=== PATIENT | female | born 1945 | race Caucasian/White ===

== ENCOUNTER 2018-03-07 18:20 | Emergency (ER) | payer MEDICARE, BC ==
[~2018-03-07] VITALS: Ht 162.6 cm; Wt 88.6 kg
[~2018-03-07 18:20] MED LIST: APRESOLINE 25MG25 MG PO; ASPIRIN 32325 MG/TA1 PO; ASPIRIN 32325 MG/TAB PO; ASPIRIN CHILDRE81 MG PO; ASPIRIN LOW DOS81 M1 PO; CITALOPRAM10 MG PO; CLONAZEPAM1 MG PO; CRESTOR5 MG PO; DOXAZOSIN4 MG PO; FUROSEMIDE20 MG PO; HCTZ 25MG TAB25 MG PO; HUMULIN N100 U/ML SQ; HUMULIN R 10100 U/ML SC; HUMULIN R100 U/ML SQ; INSHUMULINN SC; INSULIN R (N100 U/ML SC; KLONOPIN1 MG PO; KLOR-CON 1010 MEQ PO; LEVEMIR100 U/ML SC; LEVOTHYROXIN0.125 MG PO; LEVOXYL0.125 MG PO; LISINOPRIL/HCTZ1 TA1 PO; LOPRESSOR 225 MG/TAB PO; NOVOLIN 70/30 710 ML SC; NOVOLIN N100 U/ML SC; PLAVIX 75MG TAB75 MG PO; PLETAL 100MG T100 MG PO; PRINZIDE 12.5 M1 TAB PO; SALINE IH; SIMVASTATIN40 MG PO; SYNTHROID0.137 MG PO; ULTRAM 50MG TAB50 MG PO; VITAMIN D 50,1.25 MG PO; ZESTRIL 10MG10 MG PO
[2018-03-07 18:25] VITALS: TEMP 98.3
[2018-03-07] MEDS ORDERED: ASPIRIN 81M81 MG/TA2 PO (18:44)
[2018-03-07] MEDS ORDERED: REGLAN 10MG10 MG/TAB PO (19:01)
[2018-03-07] MEDS ORDERED: DITROPAN 5MG TAB5 MG PO (19:01)
[2018-03-07] MEDS ORDERED: COREG 3.123.125 MG/T PO (19:05)
[2018-03-07 19:50] VITALS: BP 146/67; PULSE 58
== END 2018-03-07 19:50 | disposition home or self-care (01) ==
LOC: COL.ER 18:20
DX: S82.831A Other fracture of upper and lower end of right fibula, initial encounter for closed fracture (principal); Z79.02 Long term (current) use of antithrombotics/antiplatelets; Z79.4 Long term (current) use of insulin; Z79.82 Long term (current) use of aspirin; W00.0XXA Fall on same level due to ice and snow, initial encounter; X50.0XXA Overexertion from strenuous movement or load, initial encounter

== ENCOUNTER 2019-03-16 15:04 | Inpatient (IN) | payer MEDICARE, BC ==
[~2019-03-16] VITALS: Ht 162.6 cm; Wt 96.8 kg
[~2019-03-16 15:04] MED LIST changes: +ASPIRIN 81M81 MG/TA2 PO; +CELEXA 20MG20 MG/TAB PO; +COREG 3.123.125 MG/T PO; +CRESTOR 10MG10 MG PO; -CRESTOR5 MG PO; +DITROPAN 5MG TAB5 MG PO; -HUMULIN R 10100 U/ML SC; -INSHUMULINN SC; +INSULIN N (N100 U/ML SQ; +INSULIN R (N100 U/ML SQ; +REGLAN 10MG10 MG/TAB PO; +SYNTHROID0.125 MG/T PO
[2019-03-16 16:52] LABS: BASO % 0.2 % (0.0-2.0); EOS # 0.1 (0.0-0.7); EOS % 0.7 % (0-4.0); GRAN % 72.6 % (42.2-75.2); LYMPH # 1.3 (1.2-3.4); LYMPH % 15.2 % (20.0-51.0); MEAN CELL VOLUME 89 fl (80.0-100.0); MEAN CORPUSCULAR HGB CONC 34 g/dl (33.0-37.0); MEAN PLATELET VOLUME 10.2 fl (7.4-10.4); MONO # 0.9 (0.1-0.6); MONO % 10.8 % (1.7-9.3); PLATELET COUNT 208 K/mm3 (130-400); RED BLOOD COUNT 2.93 M/mm3 (4.10-5.30); REDCELL DISTRIBUTION WIDTH-CV 12.5 % (11.5-14.5)
[2019-03-16 16:53] LABS: HEMOGLOBIN 8.9 g/dl (12.5-16.0); MEAN CORPUSCULAR HEMOGLOBIN 30 pg (27.0-31.0)
[2019-03-16 17:19] LABS: COLLECTION METHOD IN
[2019-03-16 17:30] LABS: ALBUMIN 3.4 gm/dL (3.5-5.0); BILIRUBIN,TOTAL 0.5 mg/dL (0.0-1.0); C-REACTIVE PROTEIN 1.7 mg/dL (0.0-0.9); CALCIUM 7.9 mg/dL (8.4-10.2); CREATININE, serum 6.71 (0.52-1.25); MAGNESIUM 2.3 mg/dL (1.6-2.3); POTASSIUM 3.4 mmol/L (3.4-5.0); TOTAL PROTEIN 6.9 gm/dL (6.4-8.2)
[2019-03-16 17:31] LABS: PHOSPHOROUS 11.8 mg/dL (2.5-4.5)
[2019-03-16 17:37] LABS: AMORPHOUS CRYSTAL Present /uL; PH 5 (5-8); SQUAMOUS EPITHELIAL None Seen /hpf; URINE APPEARANCE Turbid; URINE BACTERIA Moderate /hpf; URINE BILIRUBIN Negative (NEGATIVE); URINE BLOOD 1+ (NEGATIVE); URINE COLOR Yellow; URINE GLUCOSE Negative (NEGATIVE); URINE KETONE Negative (NEGATIVE); URINE LEUKOCYTE ESTERASE 3+ (NEGATIVE); URINE NITRATE Negative (NEGATIVE); URINE PROTEIN(semi-quant) Negative (NEGATIVE); URINE UROBILINOGEN Negative (NEGATIVE)
[2019-03-16 19:32] LABS: INR 1.1 (0.8-3.0); PROTHROMBIN TIME 12.3 SECONDS (9.7-12.8)
--- NOTE | 2019-03-16 19:52 | NUR ---
Received report from DENIA Hernandez.
--- NOTE | 2019-03-16 20:13 | NUR ---
Patient arrives to ICU room 6 via ED stretcher. Patient is transferred to ICU bed via sliding board. Patient reports 10/10 pain in her bottom from pressure sores; her pain baseline is reported as a 10. Initial BP 145/131, other vitals within normal limits. Stage II ulcer noted on patient's coccyx, approximately 4 cm in length and 0.5 cm in width. Patient also has scattered small pustules primarily on abdomen and back that are red and intact. Abdominal folds are red and excoriated. Patient has 1+ edema in bilateral lower extremities; 2+ edema in feet. Scattered bruising throughout bilateral upper extremities noted. Bonita notified of patient's arrival. Will continue to monitor.
[2019-03-16 20:15] LABS: CREATININE, serum 6.28 (0.52-1.25); FRACTIONAL EXCRETION OF NA+ 5.4 %
[2019-03-16 20:37] VITALS: BP 145/131; PULSE 69; TEMP 97.7
--- NOTE | 2019-03-16 20:50 | NUR ---
Notified Bonita of patient's responses to suicide screen. Received orders to initiate suicide risk protocol.
[2019-03-16] MEDS ORDERED: INSULIN N (N100 U/ML SQ (21:59)
[2019-03-16 22:00] VITALS: BP 104/58; PULSE 63
[2019-03-16] MEDS ORDERED: PRINIVIL10 MG PO (22:12)
[2019-03-16] MEDS ORDERED: NITROSTAT0.4 MG/TAB SL (22:14)
[2019-03-16 23:40] LABS: ACETAMINOPHEN < 10 ug/mL (10-30); ALCOHOL(ethanol),MEDICAL < 10 mg/dL
[2019-03-17] VITALS (79 sets, daily range): BP systolic 96–132; BP diastolic 43–78; PULSE 50–85; TEMP 97.4–98.2; O2SAT 55–100
[2019-03-17 00:07] LABS: TSH w REFLEX 0.023 uIU/mL (0.465-4.680)
[2019-03-17 00:34] LABS: TRICYCLIC ANTIDEPRESS URINE NEGATIVE
--- NOTE | 2019-03-17 02:12 | NUR ---
Notified Bonita of patient's fluctuating BPs with MAPs < 65. Received orders to bolus 1L NS now. Will continue to monitor.
[2019-03-17 05:16] LABS: BASO % 0.3 % (0.0-2.0); EOS # 0.1 (0.0-0.7); EOS % 1.5 % (0-4.0); GRAN # 4.7 (1.4-6.5); GRAN % 62.2 % (42.2-75.2); LYMPH # 1.9 (1.2-3.4); LYMPH % 25.1 % (20.0-51.0); MEAN CELL VOLUME 90 fl (80.0-100.0); MEAN CORPUSCULAR HGB CONC 34 g/dl (33.0-37.0); MEAN PLATELET VOLUME 10.1 fl (7.4-10.4); MONO # 0.8 (0.1-0.6); MONO % 10.5 % (1.7-9.3); PLATELET COUNT 183 K/mm3 (130-400); RED BLOOD COUNT 2.82 M/mm3 (4.10-5.30); REDCELL DISTRIBUTION WIDTH-CV 12.8 % (11.5-14.5)
[2019-03-17 05:18] LABS: HEMATOCRIT 25.3 % (37.0-47.0); HEMOGLOBIN 8.7 g/dl (12.5-16.0); MEAN CORPUSCULAR HEMOGLOBIN 31 pg (27.0-31.0)
[2019-03-17 05:23] LABS: ALANINE AMINOTRANSFERASE 29 U/L (9-52); ALKALINE PHOSPHATASE 93 U/L (50-136); ANION GAP 13 mmol/L (7-16); AST,SGOT 34 U/L (15-37); BILIRUBIN,TOTAL 0.5 mg/dL (0.0-1.0); CALCIUM 7.4 mg/dL (8.4-10.2); CARBON DIOXIDE 20 mmol/L (22-30); CHLORIDE 107 mmol/L (98-107); CREATININE, serum 5.33 (0.52-1.25); GLUCOSE 176 mg/dL (74-106); SODIUM 140 mmol/L (137-145); TOTAL PROTEIN 6.2 gm/dL (6.4-8.2)
[2019-03-17 05:30] LABS: BLOOD UREA NITROGEN 168 mg/dL (7-17)
--- NOTE | 2019-03-17 07:15 | NUR ---
Dining services informed of precautions required for food tray
--- NOTE | 2019-03-17 07:38 | NUR ---
Report given to DENIA Hernandez.
--- NOTE | 2019-03-17 08:04 | NUR ---
MD Evaristo called to provide update and to inform [facility] will be closing early today if wanted to schedule pt to TDC insertion by IR. MD Evaristo replied: I cannot make that decision right now. So no. [facility] team notified that MD Evaristo not wanting a TDC insertion for pt today.
--- NOTE | 2019-03-17 08:09 | NUR ---
MD Judie Psych consult called - staff at her office states she is not taking consultations this week.
--- NOTE | 2019-03-17 10:17 | NUR ---
SIDNEY frazier met with the patient and the patient's , Efra to complete initial assessment. The [place]between [place] and [place]. The patient has a bedside commode, walker, cane, and shower chair. The patient receives assistance with ADLs from Efra. The patient was interested in home health services. SIDNEY frazier provided [employer]'s list of agencies in the geographical location of the patient's address. The patient's PCP is Dr. Watson and patient receives medication from [facility] with no difficulties. The patient's picks up medications for the patient. The patient does not have advanced directives in the EMR and was not interested in DPOA-HC form. loan services professional will continue to follow to ensure a safe discharge.
--- NOTE | 2019-03-17 10:44 | NUR ---
Pt experiencing "regular old back pain rated at a 10/10". Pt also experiencing 10/10 "white hot pain going from my knee down to my feet on left side". MD Joellen and rounding team present.
--- NOTE | 2019-03-17 10:49 | NUR ---
WEIGHT CHECKER student attended clinical rounds with the team. PT/OT ordered and Nephrology consulted.
--- NOTE | 2019-03-17 11:11 | NUR ---
MD Evaristo notified of MD Joellen PICC order. Pt is right handed. MD Evaristo stated to insert PICC in pt's dominant arm. Repeated back to MD Evaristo that PICC will be in right arm DENIA Schaefer notified
--- NOTE | 2019-03-17 12:13 | NUR ---
DENIA Schaefer placing PICC at this time
--- NOTE | 2019-03-17 17:41 | NUR ---
1741 Pt drowsy after recieving IV Phenergan experiencing apnea while sleeping. SpO2 40% during this apnea, hypoxic event lasted <30seconds before waking pt (firm stimulation required to wake pt) - SpO2 elevated to 96% within seconds of waking. MD Joellen called - BiPap orders recieved - RT Melina called 175 Pt placed on BiPap - tolerating BiPap without difficulty. 1800 whos been at bedside most of the day has left for the evening.
[2019-03-18] VITALS (651 sets, daily range): BP systolic 92–125; BP diastolic 40–85; PULSE 54–62; TEMP 98–98.4; O2SAT 62–100
[2019-03-18 04:58] LABS: BASO % 0.5 % (0.0-2.0); EOS # 0.1 (0.0-0.7); EOS % 1.4 % (0-4.0); GRAN # 3.5 (1.4-6.5); GRAN % 59.2 % (42.2-75.2); LYMPH # 1.7 (1.2-3.4); LYMPH % 28.9 % (20.0-51.0); MEAN CELL VOLUME 93 fl (80.0-100.0); MEAN CORPUSCULAR HGB CONC 33 g/dl (33.0-37.0); MEAN PLATELET VOLUME 9.8 fl (7.4-10.4); MONO # 0.6 (0.1-0.6); MONO % 9.5 % (1.7-9.3); PLATELET COUNT 170 K/mm3 (130-400); RED BLOOD COUNT 2.66 M/mm3 (4.10-5.30); REDCELL DISTRIBUTION WIDTH-CV 12.6 % (11.5-14.5)
[2019-03-18 05:03] LABS: HEMATOCRIT 24.8 % (37.0-47.0); HEMOGLOBIN 8.2 g/dl (12.5-16.0); MEAN CORPUSCULAR HEMOGLOBIN 31 pg (27.0-31.0)
[2019-03-18 05:10] LABS: CALCIUM 7.9 mg/dL (8.4-10.2); CREATININE, serum 3.95 (0.52-1.25); MAGNESIUM 1.8 mg/dL (1.6-2.3); PHOSPHOROUS 7.5 mg/dL (2.5-4.5); POTASSIUM 4.2 mmol/L (3.4-5.0)
--- NOTE | 2019-03-18 09:12 | NUR ---
Physical therapy is recommending post acute rehab. VICE PRESIDENT OF DEVELOPMENT student provided Medicare.gov's list of SNF facilities in the patient's geographical location. The patient would like to discuss the options with her . inpatient services director will continue to follow.
--- NOTE | 2019-03-18 13:49 | NUR ---
VIDEOGAME DESIGNER student met with the patient and her , Efra to discuss SNF choices. The patient reports they talked it over and the first choice is [facility] and second choice is [facility]. Referrals faxed. Awaiting responses.
--- NOTE | 2019-03-18 15:11 | NUR ---
Report received from Ivy LOZA and care resumed.
--- NOTE | 2019-03-18 16:19 | NUR ---
Report given to Puja LOZA. Pt to transfer to room 318.
--- NOTE | 2019-03-18 17:00 | NUR ---
Patient to room 318 by bed from ICU. Patient A&Ox3, reporting pain in buttucks from stage 2 pressure ulcer. [place] dressing applied. Oriented patient to room, call light and bed. Assessment complete. PICC APOLONIA CDI, fluids infusing. Patient reporting nausea, basin at the bedside. Pastor dependent drainage, clear yellow. No further needs expressed from patient. Call light within reach.
--- NOTE | 2019-03-18 17:30 | NUR ---
Called to room from daughter and asking for an straightening machine feeder. Counter Former line called. Daughter explaining through licensed real estate broker that patient wants to be discharged and leave the hospital. Explained through licensed real estate broker that the patient was requiring to much medical support and oxygen to be cleared for discharge. Pt and daughter explained to licensed real estate broker that they didnt care and still wanted to leave. They stated they have a flight back to [place] and that patient just wants to go home. They also stated they could not afford the hospital bill. Explained through straightening machine feeder that according to the medical team of doctors seeing her, it was very likely that she would deteriorate very quickly once the oxygen was removed. Pt states she understands but does not need the oxygen. Explained through licensed real estate broker that doctors were not even sure that she would live long enough to make it on a plane. Daughters and patient state understanding and still requesting to leave. ROSALBA Hernandez and Dr Cuenca called to room who also were updated that pt was wanting to leave the hospital. Explained that if patient left it would be against medical advise and that she would more then likely pass before even being able to get on a plane. Family and patient again stating that they want patient to leave the hospital. stating that patient may not even be able to make it out of the hospital before going into cardiac arrest or she may stop breathing. Doctor had licensed real estate broker explain this to family. They again state thats ok. A DNR was then explained to tranlator and this was relayed to family that if patient were to stop breathing would they like us to code or resuscitate the patient. The daughters stated no, she would be a DNR. AMA paperwork was then filled out by ROSALBA Hernandez and read and translated to the family who again agreed with leaving. AMA paperwork was signed by patient and as well as the daugher then witnessed by nurse and PLUMBER ASSISTANT. Pt 02 was removed per request. Within 1 minute O2 sats mid 80's and pt having increased work of breathing. Family still wanting to proceed. INT to left forearm was dc'd and pt taken off tele and IV amiodarone. PICC line to right upper arm removed and pressure applied until hemostasis. Pt's O2 sats upper 70's at this time. Doctor and PLUMBER ASSISTANT still present. At this time pt's sister and brother in law present and explained what was happening. Sister and brother in law tried again to talk with patient and pt's daughters and get them to stay in hospital. Brother in law was stating, "she will and I won't feel good about her dying in my home." Daughters and patient still persistent on leaving. At this time 02 sat was removed, currently showing 74%. Pt was dressed and helped to wheelchair. Pt taken out to private care with daughters, sister, and brother in law present to take her home at 1715.
--- NOTE | 2019-03-18 17:47 | NUR ---
Patient resting in bed, at the bedside. Denies pain and discomfort when not moving. Warm blanket provided. Charlotte at the bedside, patient concerned with vomitting from being nauseous. PICC APOLONIA CDI, fluids infusing. No further needs expressed from patient. Call light within reach
--- NOTE | 2019-03-18 20:00 | NUR ---
Recieved report from DENIA Durant. Assessment complete. Alert and oriented. Denies any pain at this time, c/o feeling nausea, no vomiting. meds administered. Tele monitor in place, leads checked. Pastor cath in place, secured to LL, draining clear yellow urine. PICC to APOLONIA intact with fluids infusing. Needs attended too. Call light within reach.
[2019-03-19] VITALS: BP 126/46; PULSE 60; TEMP 97.9
[2019-03-19 02:54] VITALS: BP 113/39; PULSE 115; TEMP 98.5
[2019-03-19 03:52] LABS: BASO % 0.5 % (0.0-2.0); EOS # 0.1 (0.0-0.7); EOS % 1.3 % (0-4.0); GRAN # 3.4 (1.4-6.5); GRAN % 62.4 % (42.2-75.2); LYMPH # 1.4 (1.2-3.4); LYMPH % 25.8 % (20.0-51.0); MEAN CELL VOLUME 90 fl (80.0-100.0); MEAN CORPUSCULAR HGB CONC 34 g/dl (33.0-37.0); MEAN PLATELET VOLUME 9.3 fl (7.4-10.4); MONO # 0.5 (0.1-0.6); MONO % 9.5 % (1.7-9.3); PLATELET COUNT 161 K/mm3 (130-400); RED BLOOD COUNT 2.71 M/mm3 (4.10-5.30); REDCELL DISTRIBUTION WIDTH-CV 12.4 % (11.5-14.5)
--- NOTE | 2019-03-19 03:52 | NUR ---
At 0330, ProjectSpeaker notified this RN pt had run of SVT, back to 60's. Pt sleeping at this time, asymptomatic. ROSALBA Mes[place] notified. Per Bonita to have labs drawn. Lab notified.
[2019-03-19 03:53] LABS: HEMATOCRIT 24.5 % (37.0-47.0); HEMOGLOBIN 8.3 g/dl (12.5-16.0); MEAN CORPUSCULAR HEMOGLOBIN 31 pg (27.0-31.0)
[2019-03-19 04:02] LABS: CALCIUM 7.6 mg/dL (8.4-10.2); CREATININE, serum 2.89 (0.52-1.25); MAGNESIUM 1.5 mg/dL (1.6-2.3); POTASSIUM 4.1 mmol/L (3.4-5.0)
--- NOTE | 2019-03-19 06:20 | NUR ---
At 0615, OrderUp notified this RN of 18sec run of AFIB w/RVR, pt asymptomatic, VS WNL. Notified Dr Cisse, per to monitor pt.
--- NOTE | 2019-03-19 07:02 | NUR ---
Report given to DENIA Miguel.
[2019-03-19 08:49] VITALS: BP 121/42; PULSE 62; TEMP 99
--- NOTE | 2019-03-19 11:36 | NUR ---
First visit from the contact center specialist. No needs right now.
[2019-03-19 12:16] VITALS: BP 118/38; PULSE 60; TEMP 98.8
--- NOTE | 2019-03-19 13:58 | NUR ---
Erendira, at [facility], reports that they would like to see the patient's psych consult. A psych consult has been ordered. Manas, at [facility], reports that they are still reviewing the referral. She states that they would like to see updated notes on the patient since her transfer from ICU. KELECHI faxed updates to [facility] and [facility]. SW to continue to follow.
--- NOTE | 2019-03-19 17:12 | NUR ---
Erendira, at [facility], reports that they are good to follow the patient; but would like to see the psych consult once done. SW to continue to follow.
[2019-03-19 17:17] VITALS: BP 116/45; PULSE 56; TEMP 98.5
--- NOTE | 2019-03-19 19:55 | NUR ---
Patient assessment completed and charted at this time, please see documentation for details. Patient resting in bed, call light within reach, no issues to report at this time.
[2019-03-19 21:24] VITALS: BP 112/45; PULSE 58; TEMP 99.6
[2019-03-20] VITALS (7 sets, daily range): BP systolic 104–152; BP diastolic 32–58; PULSE 52–105; TEMP 98.1–98.8
[2019-03-20 09:30] LABS: BASO % 0.1 % (0.0-2.0); EOS % 0.1 % (0-4.0); GRAN # 6.1 (1.4-6.5); GRAN % 78.9 % (42.2-75.2); LYMPH # 1.1 (1.2-3.4); LYMPH % 14.8 % (20.0-51.0); MEAN CELL VOLUME 92 fl (80.0-100.0); MEAN CORPUSCULAR HGB CONC 34 g/dl (33.0-37.0); MEAN PLATELET VOLUME 9.7 fl (7.4-10.4); MONO # 0.4 (0.1-0.6); MONO % 5.7 % (1.7-9.3); PLATELET COUNT 173 K/mm3 (130-400); RED BLOOD COUNT 2.68 M/mm3 (4.10-5.30); REDCELL DISTRIBUTION WIDTH-CV 12.4 % (11.5-14.5)
[2019-03-20 09:34] LABS: HEMATOCRIT 24.6 % (37.0-47.0); HEMOGLOBIN 8.3 g/dl (12.5-16.0); MEAN CORPUSCULAR HEMOGLOBIN 31 pg (27.0-31.0)
--- NOTE | 2019-03-20 09:34 | NUR ---
When I arrived pt seemed upset. She said she still felt nauseaus but was not in any pain. She was bent over a bucket thinking she would vomit but she never did. I gave her some zofran and she said she is still feeling nauseaus. Her pressure ulcer is consistent with a stage II ulcer. PT got the pt up and she did not tolerate standing or the transfer to the chair well. Her feet were also edemetous but warm. She refused breakfast this morning and refused crackers when I offered her some with her sprite. She also mentioned that she didn't want to take all of her medications at once because she could only take one at a time and "taking a drink in between each one makes me nauseaus." I offered to split them up and take 1 every 15 minutes and she said she didn't want to do that. Waiting on hepxa to come back to adjust heparin drip.
[2019-03-20 09:42] LABS: CALCIUM 8.1 mg/dL (8.4-10.2); CREATININE, serum 2.18 (0.52-1.25); POTASSIUM 3.8 mmol/L (3.4-5.0)
[2019-03-20 14:57] LABS: PARTIAL THROMBOPLASTIN TIME 114.8 SECONDS (26.0-37.0)
--- NOTE | 2019-03-20 15:23 | NUR ---
Erendira from [facility] reports they can accept the patient for a long term stay. KELECHI contacted Manas and thanked her for looking at the referral. SW informed the team and the patient. environmental services floor tech will continue to follow.
--- NOTE | 2019-03-20 18:28 | NUR ---
Pt seems unhappy. Still states being nauseaus and zofran is inneffective. Pastor has been pulled and pt has been educated on bladder spasms and the amount of time it will take for her bladder to feel normal again. Pt also refuses to eat lunch and breakfast. heparin is running at 13.7 and NS running at 50ml/hr. Pt has no other requests at this time.
--- NOTE | 2019-03-20 18:30 | NUR ---
PT report received at bedside from Carla LOZA. PT denies pain, wants, needs at this time. Call light within reach. Will continue to monitor.
--- NOTE | 2019-03-20 23:03 | NUR ---
Heparin drip stopped per policy d/t elevated Hep-Xa lab. Order placed with lab for Hep-xa and PTT at 03/21/2019 at 0100 per policy prior to restarting heparin drip.
[2019-03-21] VITALS (15 sets, daily range): BP systolic 112–133; BP diastolic 31–46; PULSE 44–99; TEMP 98.1–98.8
--- NOTE | 2019-03-21 00:31 | NUR ---
PT resting in bed waiting for lab to come draw her next PTT and Hep-Xa at 0100. PT states that she wants labs drawn via PICC d/t previous labs being difficult to draw from her arm. PT denies wants/needs at this time. Call light within reach. Will continue to monitor.
[2019-03-21 01:44] LABS: PARTIAL THROMBOPLASTIN TIME 82.3 SECONDS (26.0-37.0)
--- NOTE | 2019-03-21 03:56 | NUR ---
Up to C commode- voided 50cc, had large soft brown stool. States she feels like she needs to urinate more but cannot-- bladder scan done- 430cc in the bladder. [facility] called and order to straight x1
--- NOTE | 2019-03-21 04:41 | NUR ---
Straight cathed for 450cc urine
--- NOTE | 2019-03-21 08:02 | NUR ---
IN TO ASSESS PATIENT AND GET VITALS AT 0728. PATIENT WAS SITTING IN BED WITH NO DISTRESS. ALERT AND ORIENTATED X4, DENIES ANY SHORTNESS OF BREATH, NAUESEA, VOMITING, OR DIZZINESS. HEPARIN PAUSED MOMENTARILLY FOR LAB DRAW PURPOSES, WILL BE HOOKED BACK UP ONCE LAB WORK IS DRAWN.
[2019-03-21 08:23] LABS: BASO % 0.2 % (0.0-2.0); EOS # 0.1 (0.0-0.7); EOS % 0.8 % (0-4.0); GRAN % 75.1 % (42.2-75.2); LYMPH # 1.5 (1.2-3.4); LYMPH % 16.6 % (20.0-51.0); MEAN CELL VOLUME 92 fl (80.0-100.0); MEAN CORPUSCULAR HGB CONC 33 g/dl (33.0-37.0); MEAN PLATELET VOLUME 9.6 fl (7.4-10.4); MONO # 0.6 (0.1-0.6); MONO % 6.4 % (1.7-9.3); PLATELET COUNT 166 K/mm3 (130-400); RED BLOOD COUNT 2.32 M/mm3 (4.10-5.30); REDCELL DISTRIBUTION WIDTH-CV 12.5 % (11.5-14.5)
[2019-03-21 08:24] LABS: HEMATOCRIT 21.3 % (37.0-47.0); HEMOGLOBIN 7.1 g/dl (12.5-16.0); MEAN CORPUSCULAR HEMOGLOBIN 31 pg (27.0-31.0)
[2019-03-21 08:33] LABS: CALCIUM 7.7 mg/dL (8.4-10.2); CREATININE, serum 1.96 (0.52-1.25); POTASSIUM 3.6 mmol/L (3.4-5.0)
--- NOTE | 2019-03-21 09:41 | NUR ---
PATIENT IS OFF HER HEPARIN GTT AT THIS TIME DUE TO DOCTORS ORDERS AND STARTING ELIQUIS. NO OTHER ISSUES NOTED AT THIS TIME. AT BEDSIDE
--- NOTE | 2019-03-21 10:20 | NUR ---
BLADDER SCANNED THE PATIENT. 258 ML IN BLADDER AT THIS TIME. PATIENT DENIES THE NEED TO GO TO THE BATHROOM AT THIS TIME.
--- NOTE | 2019-03-21 11:35 | NUR ---
GOT PATIENT UP TO THE BEDSIDE COMMONDE WITH NO RESULTS. PATIENT DECLINED ME CLEANING HER UP WITH WASHCLOTHES THAT I BROUGHT IN, STATING THAT SHE DID IT YESTERDAY. A NEW FITTED SHEET WAS APPLIED TO THE BED AT THIS TIME. PATIENT IS SITTING UP IN THE CHAIR AND SAID THAT SHE COULD ONLY FOR A COUPLE MINUTES. DECLINED USING THE SHOWER CAP OR USING A WASHCLOTH TO GET HER HAIR WET AND CLEANED UP.
--- NOTE | 2019-03-21 14:01 | NUR ---
DR. ELLISON NOTIFIED OF THE TROPONIN VALUE THAT RESULTED ON THE PATIENT. NO ACTION AT THIS TIME REQUIRED.
[2019-03-21 14:19] LABS: PARTIAL THROMBOPLASTIN TIME 42.6 SECONDS (26.0-37.0)
--- NOTE | 2019-03-21 17:48 | NUR ---
PATIENT LAYING IN BED AT THIS TIME WATCHING TV WITH HER AND WAITING ON DINNER TO ARRIVE. PATIENT IS RECEIVING A UNIT OF BLOOD AT THIS TIME. NO S/S OR COMPLAINTS OF A REACTION ARE NOTED. PATIENT WAS ABLE TO VOID ABOUT AN HOUR AGO AFTER NOT BEING ABLE TO GO ALL DAY. PATIENT DID SIT UP IN THE CHAIR FOR A GOOD 2 HOURS DURING THE DAY. NO COMPLAINTS AT THIS TIME. CALL LIGHT WITHIN REACH.
--- NOTE | 2019-03-21 18:38 | NUR ---
PATIENT WANTED TO REFUSE DINNER AND THIS NURSE TOLD THE PATIENT THAT SHE NEEDED TO EAT SOMETHING. SHE IS EATING PINNAPLE AND DRINKING CHICKEN BROTH
--- NOTE | 2019-03-21 20:00 | NUR ---
Initial shift assessment done- pt denies being in pain- does not want pain meds at this time- repositioned off bottom, has open area to coccyx-mepilex on. Blood completed-- according to order in computer - next recheck of hgb not for 6 hrs- order to start heparin drip at this time at 10cc/hr, no orders for blood draw before starting so did call [facility] for some clarification- orders now to have Blood drawn at 2100 tonight- will get CBC to see if needs another unit of blood and coagulation studies before starting heparin drip-
[2019-03-21 21:34] LABS: BASO % 0.4 % (0.0-2.0); EOS # 0.1 (0.0-0.7); EOS % 0.8 % (0-4.0); GRAN # 7.6 (1.4-6.5); GRAN % 71.9 % (42.2-75.2); LYMPH # 1.8 (1.2-3.4); LYMPH % 17.1 % (20.0-51.0); MEAN CELL VOLUME 89 fl (80.0-100.0); MEAN CORPUSCULAR HGB CONC 34 g/dl (33.0-37.0); MEAN PLATELET VOLUME 9.7 fl (7.4-10.4); MONO # 0.9 (0.1-0.6); MONO % 8.6 % (1.7-9.3); PLATELET COUNT 186 K/mm3 (130-400); RED BLOOD COUNT 2.72 M/mm3 (4.10-5.30)
[2019-03-21 21:37] LABS: HEMATOCRIT 24.2 % (37.0-47.0); HEMOGLOBIN 8.1 g/dl (12.5-16.0); MEAN CORPUSCULAR HEMOGLOBIN 30 pg (27.0-31.0)
[2019-03-21 21:39] LABS: INR 1.3 (0.8-3.0); PROTHROMBIN TIME 15.3 SECONDS (9.7-12.8)
[2019-03-21 21:41] LABS: CALCIUM 8.1 mg/dL (8.4-10.2); CREATININE, serum 2.09 (0.52-1.25)
[2019-03-21 21:42] LABS: PARTIAL THROMBOPLASTIN TIME 29.2 SECONDS (26.0-37.0)
--- NOTE | 2019-03-21 22:00 | NUR ---
[facility]ita [facility] called with results of lab work- hgb 8.1-- order to give another unit of blood tonight,,coagulation studies back-- orders to follow low dose protocol according to hepxa 0.79,will wait one hour and then start heparin at 8cc/hr {800 unit/hr}
--- NOTE | 2019-03-21 23:00 | NUR ---
Heparin drip started at 8cc/hr per low dose heparin protocol- repeat hepxa at 0500
[2019-03-22] VITALS (9 sets, daily range): BP systolic 120–148; BP diastolic 38–52; PULSE 52–110; TEMP 98.4–99.1
--- NOTE | 2019-03-22 01:46 | NUR ---
Unit of blood started- infusing via PICC line- nurse in room for first 15 minutes- protocol followed
--- NOTE | 2019-03-22 01:59 | NUR ---
NO S/S of adverse reactions to blood- infusing now at 125cc/hr- VSS
--- NOTE | 2019-03-22 04:15 | NUR ---
Blood completed- no adverse reactions,, denies pain, Up to BSC, voided 400cc osbaldo urine, back to bed. Has been resting fairly well tonight-- did get Zofran x1 for some nausea earlier in shift- denies nausea at this time. heparin drip remains at 8cc/hr- will get HEpxa with 0500 labs
[2019-03-22 06:45] LABS: HEMATOCRIT 27.6 % (37.0-47.0); HEMOGLOBIN 9.4 g/dl (12.5-16.0)
[2019-03-22 06:57] LABS: CALCIUM 8.2 mg/dL (8.4-10.2); CREATININE, serum 2.12 (0.52-1.25)
[2019-03-22 07:00] LABS: TROPONIN-I 0.261 ng/mL (0.000-0.035)
[2019-03-22 09:56] LABS: PARTIAL THROMBOPLASTIN TIME 41.1 SECONDS (26.0-37.0)
--- NOTE | 2019-03-22 10:50 | NUR ---
Erendira from [facility] contacted SW to inquire about this patients possible discharge today. SW faxed over current nursing notes, and will follow up as needed.
--- NOTE | 2019-03-22 14:18 | NUR ---
Warfarin Initial Dosing Pharmacy Note Ordering Provider: Lesley Knight W., MD Indication: Atrial fibrillation LABS: INR 1.3 (02/19/19) Recommendation: Will start Warfarin 5 mg po qHS. Bridging with heparin drip for new onset atrial fibrillation. Pharmacy will continue to monitor daily INR levels. Home Regimen: new Warfarin start
[2019-03-23 01:34] VITALS: BP 137/47; PULSE 56; TEMP 98.6
--- NOTE | 2019-03-23 02:11 | NUR ---
Patient has rested well so far this shift. States she did not eat dinner and refuses a snack. Novolog held d/t this. Blood glucose: 182. Ulcer present to coccyx. Dressing intact. Patient continues on Heparin drip. Protocol followed. Coumadin started at HS. Patient c/o pain to left hip and states she wants an xray. When asked if she fell or injured her hip she states, "well, no, but they left me in the chair for an hour and a half yesterday and it has hurt since then." Patient educated that muscles become sore/painful when they aren't used. PRN Tylenol administered. Patient states this was effective. Will continue to monitor.
[2019-03-23 04:29] VITALS: BP 135/40; PULSE 50; TEMP 98.5
[2019-03-23 06:46] LABS: MEAN CELL VOLUME 91 fl (80.0-100.0); MEAN CORPUSCULAR HGB CONC 33 g/dl (33.0-37.0); MEAN PLATELET VOLUME 9.7 fl (7.4-10.4); PLATELET COUNT 185 K/mm3 (130-400); RED BLOOD COUNT 2.98 M/mm3 (4.10-5.30); REDCELL DISTRIBUTION WIDTH-CV 14.6 % (11.5-14.5)
[2019-03-23 06:53] LABS: HEMATOCRIT 27.1 % (37.0-47.0); HEMOGLOBIN 8.9 g/dl (12.5-16.0); MEAN CORPUSCULAR HEMOGLOBIN 30 pg (27.0-31.0)
[2019-03-23 07:02] LABS: INR 1.2 (0.8-3.0); PROTHROMBIN TIME 13.8 SECONDS (9.7-12.8)
[2019-03-23 07:21] LABS: CALCIUM 8.5 mg/dL (8.4-10.2); CREATININE, serum 2.01 (0.52-1.25); MAGNESIUM 1.8 mg/dL (1.6-2.3); POTASSIUM 3.9 mmol/L (3.4-5.0)
[2019-03-23 07:26] LABS: BAND 4 % (0-10); LYMPHOCYTE 5 % (20.0-51.0); METAMYELOCYTE 2 % (0-0); MYELOCYTE 1 % (0-0); NEUTROPHILS 84 % (42.0-75.2); PLATELET ESTIMATE NORMAL (NORMAL)
[2019-03-23 07:34] VITALS: BP 108/78; PULSE 80; TEMP 98.3
[2019-03-23 11:30] VITALS: BP 157/56; PULSE 63; TEMP 98.5
--- NOTE | 2019-03-23 13:40 | NUR ---
Auto Parts Salesperson contacted Erendira at [facility] and faxed updates. SW to continue to follow.
--- NOTE | 2019-03-23 15:30 | NUR ---
THIS NURSE WENT IN THIS AFTERNOON TO DRAW LABS FROM PICC LINE FOR HEP XA LEVEL. IV WAS BEEPING THAT IV WAS "STOPPED" AND FLASHING. THIS NURSE INQUIRED ABOUT HOW LONG IT HAD BEEN NOT GOING. PT STATED THAT IT HAD BEEN BEEPING THE WHOLE HOUR HE HAD BEEN THERE, PT STATED THAT IT WAS EVEN BEFORE THAT. PT OR PT HADNT NOTIFED THIS NURSE OR STAFF ABOUT IV BEEPING, THIS NURSE CHECKED WITH NET FISHER TO SEE IF THERE WAS ANY CALLS FROM ROOM ABOUT IV BEEPING, NO CALLS WHERE MADE TO THE DESK. THIS NURSE BRIAN LABS FROM PICC LINE. REMINDED PT THAT WE DO LAB LEVELS TO CHECK RATE TO INFUSE THE HEPRAIN.
--- NOTE | 2019-03-23 17:00 | NUR ---
THIS NURSE WENT INTO ROOM WITH ANOTHER RN TO VARIFY CHANGE OF HEPARIN RATE AND GO ADMIN BOLUS DUE ACCOURDING TO HEP XA LEVEL AND THAT THE IV HAD BEEN OFF FOR MORE THEN AN HOUR. UPON ENTERING ROOM THIS NURSE SAW THAT PT IV PUMP WAS COMPLETLY SHUT OFF. THIS NURSE INQUIRED ABOUT WHY IV WAS OFF. PT HAD A VISITOR IN ROOM AND THE VISITOR REPORTED THAT THE HAD SHUT OFF THE IV DUE TO IT BEEPING AND IT NOT BEING TAKEN CARE OF. THIS NURSE EXPLAINED THE IMPORTANCE OF THE MEDICATION AND THAT WE ARE CARFULLY MONITORING LEVELS OF THE HEPARIN IN HER BLOOD AND THAT WE ARE TRYING TO GET HER STARTED ON THE COUMADIN AND ENSURING THAT LAB LEVELS ARE IN NORMAL RANGES TO WIND HER DOWN OFF THE HEPARIN AND THAT HER NOT GETTING THE HEPARIN CAN IN TURN POSSIBLY KEEP HER IN THE HOSPITAL LONGER TO GET THE LEVELS RIGHT IN HER BLOOD. AND THAT IF THE IV IS NOT INFUSING WE NEED TO BE NOTIFIED AND TO CALL US TO HER ROOM TO TAKE CARE OFIV SO SHE GETS HER MEDICATION. AND THAT SHE NEEDS TO KEEP CALLING US IF NO ONE COMES TO FIX IT UNTIL IT IS TAKEN CARE OF. THAT ITS VERY IMPORTANT THAT SHE GETS THE HEPARIN. PT AND VISITOR VARBALIZED UNDERSTANDING THE PTS VISITOR STATED THAT HE WAS GOING TO LET THE KNOW WHEN HE LEAVES THE FACITILY THAT HE WAS GOING TO GO TO OVER THE HUSBANDS HOUSE AND LET HIM KNOW ABOUT THIS SINCE SAID VISITOR LIVES NEXT DOOR.
--- NOTE | 2019-03-23 19:00 | NUR ---
PT HAD BEEN REFUSING TO EAT MEALS AND REFUSING ENSURE DRINKS FOR ABOUT 2 DAYS NOT. THIS NURES HAS BEEN ENCOURAGING INTAKE. PT HAD VISITOR IN ROOM AT TIME OF DISCUSSION. PT REFUSED FOOD AND DRINKS THAT WHERE OFFERED. THIS NURSE DID WENT OVER SNACK OPTIONS THAT WE HAD UP HERE TO ENCOURAGE INTAKE. PT VISITOR HELPED ENCOURAGE PT TO EAT SOMETHING WELL. PT HAD BEEN REPORTING NAUSEA AND THIS NURSE ADMINISTERED SOME ZOFRAN. PT WAS IN AGREEANCE TO TRY SOME HOT TEA, SOME STRAWBERRY ICE CREAM AND EDWIGE PUDDING. PT WAS ABLE TO EAT ALL THIS WITHOUT ISSUES. STATED IT TASTED "SO GOOD" PT VERABLIZED KNOWLEGED ABOUT DIET CONTROL AND NOT EATING THE ICE CREAM AND SWEET STUFF DUE THE THE DIABETES, THIS NURSE DISCUSSED THAT I WOULD RATHER HE EAT SOMETHING EVEN IF IT IS THE ICE CREAM AND PUDDING FOR SUPPER AND THAT WE CAN ALWAYS ADMINISTER SOME INSULIN ACCOURDING TO S/S FOR HER BLOOD SUGAR LEVELS. THIS NURSE DID GIVE HER THE SLIDING SCALE INSULIN AT SUPPER DUE TO EATING THE ICE CREAM AND PUDDING IN CASE HER BLOOD SUGARS SPIKED DUE TO THE SUGARS SHE ATE.
[2019-03-23 19:05] VITALS: BP 130/48; PULSE 71; TEMP 98.4
--- NOTE | 2019-03-23 19:13 | NUR ---
ASSSESSMENT COMPLETE. RESTING IN BED. DENIES PAIN/DISCOMFORT. DENIES NEEDS AT THIS TIME.
[2019-03-23 23:50] VITALS: BP 126/46; PULSE 55; TEMP 98.1
[2019-03-24 03:47] VITALS: BP 133/47; PULSE 56; TEMP 98.2
[2019-03-24 06:51] LABS: MEAN CELL VOLUME 92 fl (80.0-100.0); MEAN CORPUSCULAR HGB CONC 33 g/dl (33.0-37.0); MEAN PLATELET VOLUME 9.7 fl (7.4-10.4); PLATELET COUNT 198 K/mm3 (130-400); RED BLOOD COUNT 2.75 M/mm3 (4.10-5.30); REDCELL DISTRIBUTION WIDTH-CV 14.6 % (11.5-14.5)
[2019-03-24 06:56] LABS: HEMATOCRIT 25.2 % (37.0-47.0); HEMOGLOBIN 8.2 g/dl (12.5-16.0); MEAN CORPUSCULAR HEMOGLOBIN 30 pg (27.0-31.0)
[2019-03-24 07:12] LABS: CALCIUM 8.5 mg/dL (8.4-10.2); CREATININE, serum 1.85 (0.52-1.25); MAGNESIUM 1.7 mg/dL (1.6-2.3); POTASSIUM 3.7 mmol/L (3.4-5.0)
[2019-03-24 07:16] LABS: INR 1.1 (0.8-3.0); PROTHROMBIN TIME 13.3 SECONDS (9.7-12.8)
--- NOTE | 2019-03-24 07:23 | NUR ---
HepXa level 0.39, NO change per protocol, continue TRA 6.5 ml/hr, next Level check at 1300
[2019-03-24 07:38] VITALS: BP 141/55; PULSE 53; TEMP 99
[2019-03-24 07:55] LABS: BAND 1 % (0-10); EOSINOPHIL 1 % (0-4); LYMPHOCYTE 15 % (20.0-51.0); NEUTROPHILS 79 % (42.0-75.2); PLATELET ESTIMATE NORMAL (NORMAL)
--- NOTE | 2019-03-24 08:03 | NUR ---
Assessment completed, alert/oriented, vital signs stable, denies pain or discomfort, heart regular/ slightly bradycardic, distal pulses are palpable, lungs CTA/ no resp.difficulty noted, Hep.gtt @ 6.5/ hr and INR still subtherapuetic at 1.1, patient is voiding urine and creat is back to baseline, encouraging activity and positiong changes to offload pressure as she has stg.II pressure ulcer to her coccyx, incontinent cares provided and position changed at this time with the help of ASSET PROTECTION ASSISTANT, patient is refusing breakfast/ blood sugars in good control, denies other needs at this time
--- NOTE | 2019-03-24 09:00 | NUR ---
PICC intact right upper arm with sterile dressing change done with insertion site cleansed with chloraprep x 1, chlorhexidine impregnated disk applied, skin prep, stat lock, and tegaderm applied. no signs or symptoms of IV complications noted. no concerns voiced. re-wrapped with oneal to protect catheter.
[2019-03-24] MEDS ORDERED: COUMADIN 77.5 MG/TAB PO ×2 (10:17→10:34)
[2019-03-24] MEDS ORDERED: LIPITOR 80MG80 MG PO (10:35)
[2019-03-24] MEDS ORDERED: NORCO 325 MG-51 TAB PO (10:44)
[2019-03-24] MEDS ORDERED: LOVENOX 100100 MG/ML SQ (11:12)
[2019-03-24 11:46] VITALS: BP 155/51; PULSE 57; TEMP 97.9
[2019-03-24] MEDS ORDERED: ASPIRIN 81M81 MG/TA2 PO (11:50)
--- NOTE | 2019-03-24 11:58 | NUR ---
Stroke Belt Sander Operator attended clinical rounds with the team. Discharge plan was to go to [facility] but patient states not she does not want to go to a SNF. Patient also declines Home Health or Outpatient Therapy. Patient is firm that she is going home. Patient's , Efra expressed concerns about her going home but that patient is stubborn and that he cannot change her mind. Efra also expressed that if patient did agree to go to SNF she likely would not participate in therapy. Hospitalist inquired about patient mental health needs and patient states she doesn't need to talk to anyone. SW met with patient and Efra following rounds. SW presented and explained IM form. Patient verbalized understanding, provided signature, and was provided a copy. SW spoke with patient about thirty day window after hospitalization to explore SNF if unsucessful at home. SW also provided education on services through [facility] and their intake process. Patient verbalized understanding. SW provided her contact information to patient. SW contacted Erendira at [facility] to provide update. Patient to discharge home today.
--- NOTE | 2019-03-24 13:37 | NUR ---
School Library Media Specialist spoke with Clari, Nurse Practitioner about palliative care consult for patient. SW followed up with Puja Palliative Nurse who advised patient asked her to leave the room and stated she was going home. SW made a report to Adult Protective Services as this is not a safe discharge plan. Intake #[id number].
--- NOTE | 2019-03-24 13:41 | NUR ---
Met with patient in her room for palliative care consult. Pt states "I want to go home now". She did acknowledge my presence but stated she didn't need any more people coming in to talk with her--she just wanted to go home. She denies having any serious diseases or health issues, She states her will take care of her at home and that all she really needs to do is to take her medications. States does not need or want anyone else coming to help her. She reports she has disowned her daughter and wants nothing to do with her.When asked what brought her lulu or happiness at home, she reported nothing did. She reports her only goal is to get home. She will take her medicine and that is all she needs to do. I did ask again about her code status and she did affirm that she was a full code and would want everything done to keep her alive. Again she asked when she would be discharged and what was taking so long. Her is not here but she reported she would call him. She reports she is tired of talking with people and wanted people to leave her alone. She is not interested in identifying goals--she just wants to be alone. Then she stated she was tired of talking with people and requested that I leave her alone. Consult was ended.
--- NOTE | 2019-03-24 15:34 | NUR ---
Discharge orders discussed with patient and her , instructed to follow up with PCP/ Cardiology/Nephrology as we have scheduled, instructed to have Labs drawn prior to appointment with PCP on 03/26/19, discussed all new meds and medicaiton changes with them, scripts sent to pharmacy for her, gave demonstration on administering Lovenox injections / Patient and verbalized understanding and feel comfortable giving Lovenox injections at home, PICC removed by [facility] and post removal instructions reviewed with them and prinout given as well, instructed to move often and changed position to help prevent worsening of pressure ulcer, patient refused nursing home or any home health services upon discharge, patient and verbalized understanding of discharge instrucitons, PROPULSION SYSTEMS ENGINEER escorted her out the vehicle by wheelchair
--- NOTE | 2019-03-26 15:16 | NUR ---
farmworker [employer] spoke to two concerned neighbors that patient is alone in her home and cannot care for herself. Worker spoke with Cheryl Novak RN in [place] ICU unit and confirmed that patient's spouse is ill and in ICU. Johnny Cabral, neighbor #[phone] contacted worker and advised that patient cannot walk and has been incontinent of stool in her home. Johnny met with [facility] and worker confirms with Erendira at [facility], that they will accept patient to skilled care today. At this time, per Johnny, patient is refusing to go to [facility]. Worker contacted FATEMEH Orozco, and advised of the situation. Worker contacted the police deparment and requested that an officer make contact with patient and advise that her spouse in in ICU and will not be home for several days and that [facility] accept her today. Johnny will meet the officer and talk to patient as well. Johnny stated that he had his daughter come and help clean patient afer she was incontinent. Johnny stated that patient fell last night as well and cannot walk and hasn't eaten anything but pudding since yesterday. Worker left message for [employer] social studies teacher at the [facility].
--- NOTE | 2019-03-26 16:44 | NUR ---
geriatric social worker spoke to police and Masoud Almaraz, adult protective services, and plan is for patient to stay in her home tonight and be evaluated in emergency room prior to admission to [facility] if cleared medically.
== END 2019-03-24 15:53 | disposition home or self-care (01) | DRG 689 ==
LOC: COL.ER 15:04 → ICU 18:45 → MEDICAL 03-18 17:16
PROVIDERS: Emergency Medicine; Internal Medicine; Internal Medicine Adult Congenital Heart Disease; Internal Medicine Interventional Cardiology; Nurse Practitioner Family; Physician Assistant; Student in an Organized Health Care Education/Training Program; ADMIT Student in an Organized Health Care Education/Training Program
PROC: 02HV33Z Insertion of Infusion Device into Superior Vena Cava, Percutaneous Approach (ICD-10-PCS; principal; 2019-03-17)
DX: N39.0 Urinary tract infection, site not specified (principal); I21.4 Non-ST elevation (NSTEMI) myocardial infarction; N17.9 Acute kidney failure, unspecified; E87.2 Acidosis; I13.0 Hypertensive heart and chronic kidney disease with heart failure and stage 1 through stage 4 chronic kidney disease, or unspecified chronic kidney disease; I50.22 Chronic systolic (congestive) heart failure; N18.4 Chronic kidney disease, stage 4 (severe); E11.51 Type 2 diabetes mellitus with diabetic peripheral angiopathy without gangrene; E03.9 Hypothyroidism, unspecified; F41.9 Anxiety disorder, unspecified; F32.9 Major depressive disorder, single episode, unspecified; I48.91 Unspecified atrial fibrillation; I95.9 Hypotension, unspecified; E86.0 Dehydration; D63.1 Anemia in chronic kidney disease; L89.152 Pressure ulcer of sacral region, stage 2; E78.5 Hyperlipidemia, unspecified; I25.10 Atherosclerotic heart disease of native coronary artery without angina pectoris; M51.36 Other intervertebral disc degeneration, lumbar region; E66.9 Obesity, unspecified; I25.5 Ischemic cardiomyopathy; E11.22 Type 2 diabetes mellitus with diabetic chronic kidney disease; M79.7 Fibromyalgia; Z90.49 Acquired absence of other specified parts of digestive tract; Z95.5 Presence of coronary angioplasty implant and graft
CPT/HCPCS: 99223-AI; 99232-AI; 99233-AI; 99239; A4216; C1751; J0696; J1644; J1650; J1815; J1956; J2405; J2550; J3475; J3480; J7030; P9016

== ENCOUNTER 2020-08-22 18:59 | Inpatient (IN) | payer MEDICARE, BC ==
[~2020-08-22] VITALS: Ht 152.4 cm; Wt 115.0 kg
[~2020-08-22 18:59] MED LIST changes: +COUMADIN 77.5 MG/TAB PO; +LIPITOR 80MG80 MG PO; +LOVENOX 100100 MG/ML SQ; +NITROSTAT0.4 MG/TAB SL; +NORCO 325 MG-51 TAB PO; +PRINIVIL10 MG PO
[2020-08-22 19:40] LABS: MEAN CELL VOLUME 94 fl (80.0-100.0); MEAN CORPUSCULAR HGB CONC 33 g/dl (33.0-37.0); MEAN PLATELET VOLUME 9.1 fl (7.4-10.4); PLATELET COUNT 181 K/mm3 (130-400); RED BLOOD COUNT 3.19 M/mm3 (4.10-5.30); REDCELL DISTRIBUTION WIDTH-CV 15.1 % (11.5-14.5)
[2020-08-22 19:44] LABS: HEMOGLOBIN 9.9 g/dl (12.5-16.0); MEAN CORPUSCULAR HEMOGLOBIN 31 pg (27.0-31.0)
[2020-08-22 20:02] LABS: ALBUMIN 2.7 gm/dL (3.5-5.0); BILIRUBIN,TOTAL 1.1 mg/dL (0.0-1.0); CALCIUM 8.1 mg/dL (8.4-10.2); CREATININE, serum 3.81 (0.52-1.25); POTASSIUM 3.8 mmol/L (3.4-5.0); TOTAL PROTEIN 6.3 gm/dL (6.4-8.2)
[2020-08-22 20:17] LABS: BAND 7 % (0-10); LYMPHOCYTE 2 % (20.0-51.0); METAMYELOCYTE 1 % (0-0); NEUTROPHILS 90 % (42.0-75.2); PLATELET ESTIMATE NORMAL (NORMAL)
[2020-08-22 20:40] LABS: PH 5 (5-8); SQUAMOUS EPITHELIAL None Seen /hpf; URINE APPEARANCE Turbid; URINE BACTERIA Many /hpf; URINE BILIRUBIN Negative (NEGATIVE); URINE BLOOD 1+ (NEGATIVE); URINE COLOR Yellow; URINE GLUCOSE 2+ (NEGATIVE); URINE KETONE Negative (NEGATIVE); URINE LEUKOCYTE ESTERASE 2+ (NEGATIVE); URINE NITRATE Negative (NEGATIVE); URINE PROTEIN(semi-quant) 2+ (NEGATIVE); URINE UROBILINOGEN Negative (NEGATIVE)
[2020-08-22 23:46] LABS: INR 1.5 (0.8-3.0); PROTHROMBIN TIME 16.8 SECONDS (9.7-12.8)
[2020-08-23] VITALS (7 sets, daily range): BP systolic 88–136; BP diastolic 34–62; PULSE 55–87; TEMP 98.3–102.7
[2020-08-23] MEDS ORDERED: HUMULIN R 10100 U/ML SQ (02:24)
[2020-08-23] MEDS ORDERED: HUMULIN N 10100 U/ML SQ ×2 (02:34→02:36)
[2020-08-23] MEDS ORDERED: CYMBALTA 30MG30 MG PO (02:43)
[2020-08-23] MEDS ORDERED: NEURONTIN100 MG/CAP PO (02:44)
[2020-08-23] MEDS ORDERED: MELATONIN5 M1 SL (02:46)
[2020-08-23] MEDS ORDERED: MIRALAX PA17 GM/Dose PO (02:48)
[2020-08-23] MEDS ORDERED: BUMEX 1MG TA1 MG/TA1 PO (03:16)
--- NOTE | 2020-08-23 05:04 | NUR ---
Received patient from ED at 0145H. She is alert and partially oriented. At first she thinks she's at [facility] but reoriented her. She states that she was mostly bed bound. She has +3 edema on her BLE. Her perineal area is excoriated and with erythema. Wound culture was first ordered for her ulcer but upon checking on her sacrum she doesn't have any ulcer. Wound culture was eventually cancelled. She has triple lumen catheter on her right IJ. She is on O2 at lpm via [place].
[2020-08-23 06:56] LABS: MEAN CELL VOLUME 98 fl (80.0-100.0); MEAN CORPUSCULAR HGB CONC 33 g/dl (33.0-37.0); MEAN PLATELET VOLUME 9.7 fl (7.4-10.4); PLATELET COUNT 177 K/mm3 (130-400); RED BLOOD COUNT 2.92 M/mm3 (4.10-5.30); REDCELL DISTRIBUTION WIDTH-CV 15.2 % (11.5-14.5)
[2020-08-23 06:57] LABS: CALCIUM 7.9 mg/dL (8.4-10.2); CREATININE, serum 4.1 (0.52-1.25); HEMATOCRIT 28.6 % (37.0-47.0); HEMOGLOBIN 9.3 g/dl (12.5-16.0); MEAN CORPUSCULAR HEMOGLOBIN 32 pg (27.0-31.0); POTASSIUM 4.7 mmol/L (3.4-5.0)
--- NOTE | 2020-08-23 07:06 | NUR ---
Tried calling Dr. Loera for consult, no answer. Left a voicemail.
[2020-08-23 07:26] LABS: TROPONIN-I 0.078 ng/mL (0.000-0.035)
[2020-08-23 07:42] LABS: BAND 4 % (0-10); BASOPHIL 1 % (0-2); LYMPHOCYTE 5 % (20.0-51.0); METAMYELOCYTE 1 % (0-0); NEUTROPHILS 84 % (42.0-75.2); PLATELET ESTIMATE NORMAL (NORMAL)
[2020-08-23 07:44] LABS: ANISOCYTOSIS 1+; BURR CELLS 1+; HYPOCHROMIA 1+
--- NOTE | 2020-08-23 08:37 | NUR ---
HEP XA >2, HEPARIN DRIP STOPPED PER PROTCOL. WILL RECHECK HEP XA IN 2 HOURS.
--- NOTE | 2020-08-23 09:06 | NUR ---
PT ASSESSMENT COMPLETED. PT RESTING IN BED WITH NO COMPLAINTS OF PAIN. BREATH SOUNDS CLEAR TO AUSCULATION IN ALL LINARES. 2+ EDEMA IN BILATERAL LOWER EXTREMITIES. HEART RATE NORMAL WITH IRREGULAR RHYTHM. CURRENTLY HAS LR RUNNING AT 100ML/HR. HEPARIN INFUSION STOPPED PER ORDERS. WILL CONTINUE TO MONITOR.
[2020-08-23 09:10] LABS: IRON,SERUM 24 ug/dL (35-150)
[2020-08-23 09:19] LABS: TOTAL IRON BINDING CAPACITY 295 ug/dL (265-497)
[2020-08-23] MEDS ORDERED: COUMADIN 5MG5 MG/TAB PO (09:27)
[2020-08-23] MEDS ORDERED: K-TAB20 PO (09:30)
[2020-08-23] MEDS ORDERED: DESYREL 50MG50 MG PO (09:31)
[2020-08-23 10:43] LABS: COLLECTION METHOD CATHETER
--- NOTE | 2020-08-23 10:45 | NUR ---
SW attended clinical rounds. The patient appeared nauseous. SW contacted the patient's , Molina (ph#[phone]), to discuss discharge plan. The patient lives in [place] with her . Molina reports that it took EMS and police officers to get the patient out of their home. He states that the patient has a walker, rollator, and cane. The patient's PCP is Dr. [place] Watson and she receives her medications from [facility]. Molina reports no difficulties obtaining her meds. The patient does not have a DPOA-HC in EMR. Molina was unsure if the patient has a DPOA-HC. Due to the patient's weakness before coming in, KELECHI discussed post-acute rehab. Molina reports that the patient ends up on the floor a lot and he is unable to get her up. He would be open to SNF, but states that he does not think the patient would want to go to SNF. He states that SW will need to talk to her about SNF. Molina was open for SW to go ahead and send referrals to the local facilities. SW to follow up with the patient. KELECHI contacted and faxed referrals to [facility], [facility], and [facility]. Awaiting screens. *Discharge plan: Tentatively SNF*
[2020-08-23 11:03] LABS: INR 2.2 (0.8-3.0); PROTHROMBIN TIME 24.5 SECONDS (9.7-12.8)
--- NOTE | 2020-08-23 18:27 | NUR ---
PT HAD AN EVENTFUL DAY. HEART RATE WAS BOUNCING BETWEEN 70 AND 180 THROUGHOUT THE DAY ON TELEMETRY. TWO AMIODARONE BOLUSES GIVEN. STARTED ON CARDIZEM DRIP, AFTER ABOUT 45 MINUTES BLOOD PRESSURE DROPPED TO 80S/40S, DRIP WAS D/C. BLOOD SUGAR CONSISTENTLY IN 400S MOST OF THE DAY, LAST CHECK WAS 247 AFTER RECEIVING IV INSULIN. TMAX OF 102.7, TYLENOL GIVEN AND ICE PACKS APPLIED, TEMP DROPPED DOWN 99.0. PT EX[ERIENCED SLURRED SPEECH AND APHASIA FOR SEVERAL HOURS IN THE MIDDLE OF THE DAY, NEURO CHECKS REMAINED WITHIN LIMITS. THIS AFTERNOON SLURRED SPEECH AND APHASIA RESOLVED. PATIENT COMPLAINS OF A CHRONIC 10/10 PAIN OVER ENTIRE BODY THROUGHOUT ENTIRE SHIFT. VITALS ARE STABLE RIGHT NOW.
--- NOTE | 2020-08-23 20:00 | NUR ---
Assessment complete. Patient is alert and oriented and sleepy. She does not have slurred speech at this time and hand laboratory helper are equal. She is an obese woman with 2+ pitting edema in lower extremities. Lung sounds are clear in upper lobes and diminished in bases. HR is currently sinus cami at 52 bpm at a regular rhythm. Purewick is changed and kristy care provided. Bottom is redenned but blanchable; Kristy area is bright red and irritated; TORO Greenberg notified and nystatin cream is ordered. Call light in reach and comfort measures provided. Will continue to monitor.
[2020-08-24] VITALS (8 sets, daily range): BP systolic 101–141; BP diastolic 32–62; PULSE 52–87; TEMP 97.4–99.5
[2020-08-24 06:39] LABS: MEAN CELL VOLUME 96 fl (80.0-100.0); MEAN CORPUSCULAR HGB CONC 33 g/dl (33.0-37.0); MEAN PLATELET VOLUME 9.8 fl (7.4-10.4); PLATELET COUNT 208 K/mm3 (130-400); RED BLOOD COUNT 3.07 M/mm3 (4.10-5.30); REDCELL DISTRIBUTION WIDTH-CV 15.5 % (11.5-14.5)
[2020-08-24 06:40] LABS: HEMATOCRIT 29.6 % (37.0-47.0); HEMOGLOBIN 9.7 g/dl (12.5-16.0); MEAN CORPUSCULAR HEMOGLOBIN 32 pg (27.0-31.0)
[2020-08-24 06:50] LABS: ALBUMIN 2.8 gm/dL (3.5-5.0); BILIRUBIN,TOTAL 0.7 mg/dL (0.0-1.0); CALCIUM 8.4 mg/dL (8.4-10.2); CREATININE, serum 4.51 (0.52-1.25); POTASSIUM 4.4 mmol/L (3.4-5.0); TOTAL PROTEIN 6.6 gm/dL (6.4-8.2)
[2020-08-24 07:11] LABS: PROTHROMBIN TIME 21.9 SECONDS (9.7-12.8)
[2020-08-24 07:19] LABS: TSH w REFLEX 0.578 uIU/mL (0.465-4.680)
--- NOTE | 2020-08-24 07:46 | NUR ---
PT ASSESSMEMT CPMPLETED. LUNG SOUNDS CLEAR TO AUSCULTATION. HEART RATE AND RHYTHM NORMAL. HAND TERRAZZO GRINDER STRONG AND EQUAL BILATERALLY. RADIAL PULSES 2+. GENERALIZED SKIN APPEARS DRY, WARM, AND NORMAL IN COLOR. BOTTOM APPEARS RED AND BLANCHABLE. PERINEUM AREA APPEARS TO BE RAW AND REDDENED, PATIENT COMPLAINS OF PAIN TO THIS AREA WHEN TOUCHED. PUREWICK IN PLACE FOR BLADDER INCONTINENCE. PATIENT REPORTS PAIN ON HER BOTTOM 10/10, OFFERED TO TURN PATIENT TO SIDE BUT SHE REFUSED. NYSTATIN CREAM APPLIED PER ORDERS TO PERINEUM AREA. PT COMPLAINS OF PERSISTENT NAUSEA AND DRY HEAVING. RIGHT INTRA JUGLAR CENTRAL LINE IS PATENT AND THE DRESSING IS DRY AND INTACT. WILL CONTINUE TO MONITOR.
[2020-08-24 07:49] LABS: BAND 23 % (0-10); LYMPHOCYTE 5 % (20.0-51.0); NEUTROPHILS 70 % (42.0-75.2); PLATELET ESTIMATE NORMAL (NORMAL)
--- NOTE | 2020-08-24 08:46 | NUR ---
Sung, at [facility], reports that they are able to accept the patient for a skilled stay.
--- NOTE | 2020-08-24 14:38 | NUR ---
PT IS OFF THE UNIT FOR VQ SCAN, MRI, AND MRA.
--- NOTE | 2020-08-24 14:48 | NUR ---
The patient is to have an MRI of the brain and an MRA of the neck today. KELECHI contacted and faxed updates to [facility], [facility], and [facility].
--- NOTE | 2020-08-24 17:53 | NUR ---
PT SLEEPING IN BED, STATES SHE HAS BEEN TIRED HER WHOLE STAY AND HASN'T BEEN ABLE TO GET ANY SLEEP. PT HAS BEEN COMPLAINING OF PERSISTENT DRY HEAVING AND NAUSEA ALL DAY, UNRELIEVED BY ZOFRAN. ORDERS RECEIVED FOR PHENERGAN AND ADMINISTERED. WILL CONTINUE TO MONITOR.
[2020-08-25 04:29] VITALS: BP 138/56; PULSE 67; TEMP 98.1
[2020-08-25 06:50] LABS: MEAN CELL VOLUME 97 fl (80.0-100.0); MEAN CORPUSCULAR HGB CONC 33 g/dl (33.0-37.0); MEAN PLATELET VOLUME 9.6 fl (7.4-10.4); PLATELET COUNT 186 K/mm3 (130-400); RED BLOOD COUNT 2.79 M/mm3 (4.10-5.30); REDCELL DISTRIBUTION WIDTH-CV 15.3 % (11.5-14.5)
[2020-08-25 06:54] LABS: HEMOGLOBIN 8.8 g/dl (12.5-16.0); MEAN CORPUSCULAR HEMOGLOBIN 32 pg (27.0-31.0)
[2020-08-25 06:56] LABS: CALCIUM 7.9 mg/dL (8.4-10.2); CHOLESTEROL RISK RATIO 5.9; CREATININE, serum 4.18 (0.52-1.25); MAGNESIUM 1.7 mg/dL (1.6-2.3); POTASSIUM 3.8 mmol/L (3.4-5.0)
[2020-08-25 06:58] LABS: INR 3.3 (0.8-3.0); PROTHROMBIN TIME 36.8 SECONDS (9.7-12.8)
[2020-08-25 07:20] LABS: BAND 20 % (0-10); EOSINOPHIL 2 % (0-4); LYMPHOCYTE 9 % (20.0-51.0); NEUTROPHILS 66 % (42.0-75.2); NUCLEATED RED BLOOD CELL 2 (0-6); PLATELET ESTIMATE NORMAL (NORMAL)
[2020-08-25 08:21] VITALS: BP 138/41; PULSE 64; TEMP 98.5
[2020-08-25 12:17] VITALS: BP 136/48; PULSE 64; TEMP 98.3
--- NOTE | 2020-08-25 13:33 | NUR ---
Paul, at [facility], reports that they are able to accept the patient. Nephrology is recommending dialysis. The patient's , Efra, arrived to the hospital. The patient and Efra have decided to pursue dialysis. KELECHI met with the patient and Efra to update on referrals. The patient reports that she just wants to go home. SW informed the patient and Efra of therapy's recommendation. Efra reports that they will do what needs to be done, to get the patient better. They are open to SNF and Efra reports that their first preference would be [facility]. KELECHI notified Paul at [facility] and faxed updates to [facility] and [facility]. *Discharge plan: SNF*
--- NOTE | 2020-08-25 14:51 | NUR ---
I met with pt and her at bedside this afternoon. talked with me but pt appeared to be sleeping most of the time. She has told him that she wants to go home but he is aware that he cannot handle her care at home at this time. He is very hopeful that dialysis will allow her to loose all the water weight and she will be able to get around much better. He did say that if it was left up to her, she would just go home and but he feels and she had agreed that doing dialysis was a good idea. He reports that they do not have a lot of friends or social support and they are ok with that. They were encouraged to give dialysis a chance to make a difference in how she feels. At this point, they will proceed with dialysis.
[2020-08-25 16:58] VITALS: BP 109/67; PULSE 97; TEMP 99
--- NOTE | 2020-08-25 19:03 | NUR ---
PT A/OX4, C/O PAIN 10/ TO SORE THROAT, BACK AND LEGS. MEDICATION ADMINISTERED ORDERED. PT REMAINS AFEBRILE, DENIES V,D. PT C/O NAUSEA, MEDICATION ADMINISTERED ORDERED. PT REFUSED FOOD THROUGH OUT ENTIRE DAY. INSULIN ADMINISTERED ORDERED THIS MORNING. 1829 NPH ADMINITRATION HELD, RELAYED TO ONCOMING SHIFT. THIS NURSE CONTACTED DR. VEGA AT APPROXIMATELY 1530 TO RELAY THAT PT AND HAVE BOTH DECIDED TO MOVE FORWARD WITH DIALYSIS CARE. DR. VEGA VERBALIZES UNDERSTANDING AND STATES HE WILL RETURN TO SPEAK TO PT. PT EXPRESSES NO ADDITIONAL NEEDS AT THIS TIME. CALL LIGHT WITHIN REACH.
[2020-08-25 20:18] VITALS: BP 145/33; PULSE 73; TEMP 98.9
[2020-08-25 23:13] VITALS: BP 145/80; PULSE 72; TEMP 98.5
[2020-08-26] VITALS (7 sets, daily range): BP systolic 116–154; BP diastolic 35–86; PULSE 64–105; TEMP 97.7–99.8
--- NOTE | 2020-08-26 05:13 | NUR ---
Patient has had intermittent complaints of nausea. PRN zofran has been administered twice throughout the night. Patient has provided with complete bed bath and linen change; purewick was changed, kristy care provided and nystatin cream applied. 2+ pitting edema is still noted in lower extremities and edema is present in arms as well. Patient states she is nervous about dialysis. Call light in reach.
[2020-08-26 07:07] LABS: HEMATOCRIT 26.9 % (37.0-47.0); HEMOGLOBIN 8.8 g/dl (12.5-16.0); MEAN CELL VOLUME 95 fl (80.0-100.0); MEAN CORPUSCULAR HEMOGLOBIN 31 pg (27.0-31.0); MEAN CORPUSCULAR HGB CONC 33 g/dl (33.0-37.0); MEAN PLATELET VOLUME 9.5 fl (7.4-10.4); PLATELET COUNT 185 K/mm3 (130-400); RED BLOOD COUNT 2.83 M/mm3 (4.10-5.30); REDCELL DISTRIBUTION WIDTH-CV 15.3 % (11.5-14.5)
[2020-08-26 07:22] LABS: INR 5.3 (0.8-3.0)
[2020-08-26 07:57] LABS: CREATININE, serum 4.4 (0.52-1.25); MAGNESIUM 1.8 mg/dL (1.6-2.3); POTASSIUM 4.2 mmol/L (3.4-5.0)
--- NOTE | 2020-08-26 13:30 | NUR ---
The patient is to have a dialysis catheter placed. SW faxed updates to [facility] and [facility].
--- NOTE | 2020-08-26 15:23 | NUR ---
Patient has stayed in bed all day. Dialysis catheter was supposed to be placed today, but was held off d/t her PT and INR being elevated. This RN administered Phytonadione per physician's orders and stayed with the patient for approx. 20minutes. This RN did not notice any bleeding prior to admnistration of phytonadione. This RN and the PCT, Ian, also cleaned the patient after she has a loose BM. Bed bath was given as well, new gown/sheets, and a new purewik was placed. Patient has continued to rest all day and does not prefer to change positions, although she has been encouraged too. After the patient's BM, a generous amount of barrier ointment was applied.
--- NOTE | 2020-08-26 21:32 | NUR ---
Pt has been complaining of sore throat but refuse mouth spray. She swallowed her pills fine with vanilla ice scream.Will continue to monitor.
[2020-08-27 03:22] VITALS: BP 123/60; PULSE 55; TEMP 97.8
--- NOTE | 2020-08-27 06:57 | NUR ---
Patient called stating that she "lost her pills". This RN entered the room and the patient said, "I lost the pills that you put on my shoulder". I told the patient that she has not been given any pills and that her pills would be crushed not given whole, nor would anyone just leave them on her shoulder. The patient then stated, "I'm losing my mind. I'm 75 years old and I am losing my mind. I just want to go home"... I then completed the neuro and shift assessment on this patient, everything was WNL for this patient.
[2020-08-27 07:04] LABS: MEAN CELL VOLUME 96 fl (80.0-100.0); MEAN CORPUSCULAR HGB CONC 32 g/dl (33.0-37.0); MEAN PLATELET VOLUME 9.7 fl (7.4-10.4); PLATELET COUNT 186 K/mm3 (130-400); RED BLOOD COUNT 2.74 M/mm3 (4.10-5.30); REDCELL DISTRIBUTION WIDTH-CV 15.9 % (11.5-14.5)
[2020-08-27 07:05] LABS: INR 1.5 (0.8-3.0); PROTHROMBIN TIME 16.1 SECONDS (9.7-12.8)
[2020-08-27 07:10] LABS: CREATININE, serum 4.48 (0.52-1.25); POTASSIUM 3.8 mmol/L (3.4-5.0)
[2020-08-27 07:13] VITALS: BP 144/40; PULSE 58; TEMP 97.9
[2020-08-27 07:20] LABS: HEMATOCRIT 26.4 % (37.0-47.0); HEMOGLOBIN 8.5 g/dl (12.5-16.0); MEAN CORPUSCULAR HEMOGLOBIN 31 pg (27.0-31.0)
[2020-08-27 09:05] LABS: BAND 13 % (0-10); LYMPHOCYTE 9 % (20.0-51.0); NEUTROPHILS 72 % (42.0-75.2)
[2020-08-27 09:06] LABS: OVALOCYTES 1+; PLATELET ESTIMATE NORMAL (NORMAL)
[2020-08-27 09:09] LABS: HYPOCHROMIA 1+
[2020-08-27 12:19] VITALS: BP 153/45; PULSE 67; TEMP 98.4
[2020-08-27 14:36] LABS: COLLECTION METHOD CATHETER
[2020-08-27 14:47] LABS: BUDDING YEAST Present /hpf; PH 5 (5-8); URINE APPEARANCE Turbid; URINE BACTERIA None Seen /hpf; URINE BILIRUBIN Negative (NEGATIVE); URINE BLOOD 2+ (NEGATIVE); URINE COLOR Amber; URINE GLUCOSE Negative (NEGATIVE); URINE KETONE Negative (NEGATIVE); URINE LEUKOCYTE ESTERASE 3+ (NEGATIVE); URINE NITRATE Negative (NEGATIVE); URINE PROTEIN(semi-quant) 1+ (NEGATIVE); URINE RBC 20-50 /hpf; URINE UROBILINOGEN Negative (NEGATIVE)
[2020-08-27 16:13] LABS: CLOSTRIDIUM DIFF A/B NEG; CLOSTRIDIUM DIFF A/B INTERP No C.diff present
[2020-08-27 16:27] VITALS: BP 145/47; PULSE 69; TEMP 98.5
--- NOTE | 2020-08-27 18:59 | NUR ---
Patient has been very drowsy today and still refusing much oral intake. Provider saw patient and ordered another UA and stool sample. The UA had to be obtained via straight catheterization. The patient did not handle this well and stated, "This is the worse thing I have ever experienced in my life". The patient also made the same statement when lab was attempting to draw blood. The patient's brought her a half-gallon of orange sherbert, and requested it be put in the freezer. The then threw the ice cream away. This was against the patient's diet. The will sit in the room and attempt to feed the patient ice cream/cookies. This RN also found a dunkn donuts bag in the patient's trashcan, though I am unsure if she ate any. The patient's blood sugars are elevated as compared to yesterday.
[2020-08-27 19:26] LABS: HEPATITIS B SURFACE ANTIBODY <2.0 (()); HEPATITIS B SURFACE ANTIGEN Negative (Negative); HEPATITIS C VIRUS ANTIBODY Negative (Negative)
[2020-08-27 20:58] VITALS: BP 154/50; PULSE 60; TEMP 97.6
--- NOTE | 2020-08-27 22:41 | NUR ---
Pt has been drowsy.yeast med was applied.Will continue to monitor.
[2020-08-27 23:33] VITALS: BP 146/57; PULSE 73; TEMP 97.9
[2020-08-28] VITALS (7 sets, daily range): BP systolic 86–165; BP diastolic 20–60; PULSE 52–82; TEMP 97.7–973.9
[2020-08-28 06:27] LABS: ARTERIAL BLD GAS TCO2 CT 24.6; ARTERIAL BLOOD GAS BASE EXCESS -4.6 (-2-2); ARTERIAL BLOOD GAS HCO3 22.9 meq/L (22-26); ARTERIAL BLOOD GAS PCO2 54.6 mmHg (35-45); ARTERIAL BLOOD GAS pH 7.24 (7.35-7.45)
[2020-08-28 06:58] LABS: LACTIC ACID 1.1 mmol/L (0.4-2.0)
[2020-08-28 06:59] LABS: MEAN CELL VOLUME 97 fl (80.0-100.0); MEAN CORPUSCULAR HGB CONC 32 g/dl (33.0-37.0); MEAN PLATELET VOLUME 9.9 fl (7.4-10.4); PLATELET COUNT 222 K/mm3 (130-400); RED BLOOD COUNT 2.82 M/mm3 (4.10-5.30); REDCELL DISTRIBUTION WIDTH-CV 16.1 % (11.5-14.5)
[2020-08-28 07:05] LABS: HEMATOCRIT 27.3 % (37.0-47.0); HEMOGLOBIN 8.7 g/dl (12.5-16.0); MEAN CORPUSCULAR HEMOGLOBIN 31 pg (27.0-31.0)
[2020-08-28 07:16] LABS: INR 1.4 (0.8-3.0)
[2020-08-28 07:17] LABS: ALBUMIN 2.7 gm/dL (3.5-5.0); BILIRUBIN,TOTAL 0.5 mg/dL (0.0-1.0); CALCIUM 8.1 mg/dL (8.4-10.2); CREATININE, serum 4.73 (0.52-1.25); POTASSIUM 3.9 mmol/L (3.4-5.0); TOTAL PROTEIN 6.4 gm/dL (6.4-8.2)
[2020-08-28 07:34] LABS: ANISOCYTOSIS 1+; BAND 11 % (0-10); LYMPHOCYTE 5 % (20.0-51.0); METAMYELOCYTE 4 % (0-0); MYELOCYTE 2 % (0-0); NEUTROPHILS 71 % (42.0-75.2); PLATELET ESTIMATE NORMAL (NORMAL)
[2020-08-28 07:35] LABS: HYPOCHROMIA 1+
--- NOTE | 2020-08-28 08:00 | NUR ---
Patient is not responsive to speech or touch. Vital signs unstable, registered low blood pressure (see sequence), Has in place a ventilator. A 18 size arrington catheter was started. Very damaged, redness and inflamated skin in the grown and pubic area. Her glucose levels have been high and no fodd taken since last night. Lasix administered. is in room.
--- NOTE | 2020-08-28 11:49 | NUR ---
REPORT GIVEN TO DENIA PATRICIA AT [facility]. PT WILL TRANSFER VIA EMS WHEN THEY ARRIVE. NO FURTHER CONCERNS AT THIS TIME.
--- NOTE | 2020-08-28 12:20 | NUR ---
DURING PT TRANSFER FROM HOSPITAL BED TO EMS CART, THE PATIENT SUDDENLY BECAME ALERT REQUESTING WE REMOVE THE BIPAP, AND DEMANDING THAT WE NOT TAKE HER ANYWHERE. THE PATIENT WAS ALREADY ON THE EMS CART AND ROLLING OUT OF THE BUILDING. THE PATIENT DID NOT WANT TO LEAVE. EMS CREW MOVED QUICKLY WITH THE PATIENT TO GET HER DOWN INTO THE AMBULANCE, AND THIS RN CONTACTED PROVIDER. INFORMED PROVIDER OF THE PATIENT'S CONDITION. THE PATIENT DID TRANSFER, AND IS NOW AT [facility]. REPORT WAS GIVEN TO DENIA PATRICIA IN THE ICU.
--- NOTE | 2020-08-28 13:01 | NUR ---
Sw faxed pt updates to [facility] & [facility].
[2020-08-29 08:20] LABS: PATHOLOGY DIFF REVIEW OK
== END 2020-08-28 12:30 | disposition short-term general hospital (02) | DRG 871 ==
LOC: COL.ER 18:59 → MEDICAL 22:52
PROVIDERS: Family Medicine; Internal Medicine Nephrology; Personal Emergency Response Attendant; Physician Assistant; Student in an Organized Health Care Education/Training Program; ADMIT Internal Medicine
PROC: 02HV33Z Insertion of Infusion Device into Superior Vena Cava, Percutaneous Approach (ICD-10-PCS; principal; 2020-08-22)
DX: A41.9 Sepsis, unspecified organism (principal); R65.21 Severe sepsis with septic shock; G93.41 Metabolic encephalopathy; I50.23 Acute on chronic systolic (congestive) heart failure; J96.02 Acute respiratory failure with hypercapnia; N39.0 Urinary tract infection, site not specified; Z66 Do not resuscitate; N17.9 Acute kidney failure, unspecified; I13.0 Hypertensive heart and chronic kidney disease with heart failure and stage 1 through stage 4 chronic kidney disease, or unspecified chronic kidney disease; Z68.42 Body mass index [BMI] 45.0-49.9, adult; I47.1 Supraventricular tachycardia; E87.1 Hypo-osmolality and hyponatremia; N18.4 Chronic kidney disease, stage 4 (severe); I48.92 Unspecified atrial flutter; E78.5 Hyperlipidemia, unspecified; I25.10 Atherosclerotic heart disease of native coronary artery without angina pectoris; I25.5 Ischemic cardiomyopathy; E11.51 Type 2 diabetes mellitus with diabetic peripheral angiopathy without gangrene; E11.65 Type 2 diabetes mellitus with hyperglycemia; E11.22 Type 2 diabetes mellitus with diabetic chronic kidney disease; E03.9 Hypothyroidism, unspecified; F41.9 Anxiety disorder, unspecified; F32.9 Major depressive disorder, single episode, unspecified; R79.1 Abnormal coagulation profile; I48.91 Unspecified atrial fibrillation; R53.81 Other malaise; Z20.822 Contact with and (suspected) exposure to COVID-19; R47.1 Dysarthria and anarthria; D63.1 Anemia in chronic kidney disease; E66.9 Obesity, unspecified; G47.33 Obstructive sleep apnea (adult) (pediatric); I25.2 Old myocardial infarction; Z95.5 Presence of coronary angioplasty implant and graft; Z79.4 Long term (current) use of insulin; Z79.890 Hormone replacement therapy; Z79.01 Long term (current) use of anticoagulants; Z79.82 Long term (current) use of aspirin; Z88.2 Allergy status to sulfonamides; Z88.1 Allergy status to other antibiotic agents; Z88.8 Allergy status to other drugs, medicaments and biological substances
CPT/HCPCS: 99223-AI; 99232-AI; 99233-AI; 99239; A4314; A9284; A9540; A9567; J0282; J0696; J1450; J1644; J1815; J1940; J1956; J2405; J2543; J2550; J3370; J3430; J7030; J7050; J7060; J7120

== ENCOUNTER 2020-10-03 09:59 | Inpatient (IN) | payer MEDICARE, BC, MEDICAID ==
[~2020-10-03] VITALS: Ht 152.4 cm; Wt 114.3 kg
[~2020-10-03 09:59] MED LIST changes: +BUMEX 1MG TA1 MG/TA1 PO; +COUMADIN 5MG5 MG/TAB PO; +CYMBALTA 30MG30 MG PO; +DESYREL 50MG50 MG PO; +HUMULIN N 10100 U/ML SQ; +HUMULIN R 10100 U/ML SQ; +K-TAB20 PO; +MELATONIN5 M1 SL; +MIRALAX PA17 GM/Dose PO; +NEURONTIN100 MG/CAP PO
[2020-10-03 13:38] LABS: COLLECTION METHOD CLEAN CATCH
[2020-10-03 13:39] LABS: ALBUMIN 2.4 gm/dL (3.5-5.0); BILIRUBIN,TOTAL 0.4 mg/dL (0.0-1.0); CALCIUM 7.6 mg/dL (8.4-10.2); CREATININE, serum 2.24 (0.52-1.25); POTASSIUM 3.3 mmol/L (3.4-5.0); TOTAL PROTEIN 6.1 gm/dL (6.4-8.2)
[2020-10-03 13:41] LABS: IRON,SERUM 14 ug/dL (35-150)
[2020-10-03 13:44] VITALS: BP 151/73; PULSE 60; TEMP 98.2
[2020-10-03 13:56] LABS: MUCOUS Present /lpf; PH 7 (5-8); SQUAMOUS EPITHELIAL None Seen /hpf; URINE APPEARANCE Turbid; URINE BACTERIA None Seen /hpf; URINE BILIRUBIN Negative (NEGATIVE); URINE BLOOD 1+ (NEGATIVE); URINE COLOR Yellow; URINE GLUCOSE Negative (NEGATIVE); URINE KETONE Negative (NEGATIVE); URINE LEUKOCYTE ESTERASE 3+ (NEGATIVE); URINE NITRATE Negative (NEGATIVE); URINE PROTEIN(semi-quant) 1+ (NEGATIVE); URINE UROBILINOGEN Negative (NEGATIVE)
[2020-10-03] MEDS ORDERED: COUMADIN 1MG1 MG/TAB PO (15:16)
[2020-10-03] MEDS ORDERED: DEMADEX 20MG20 M1 PO (15:24)
[2020-10-03] MEDS ORDERED: NEURONTIN100 MG/CAP PO (15:25)
[2020-10-03] MEDS ORDERED: NOVOLIN N100 U/ML SQ (15:29)
[2020-10-03] MEDS ORDERED: INSULIN N (N100 U/ML SQ (15:31)
[2020-10-03 15:33] VITALS: BP 114/86; PULSE 60; TEMP 98.3
[2020-10-03] MEDS ORDERED: NOVOLIN R100 U/ML SQ ×2 (16:10→16:12)
[2020-10-03] MEDS ORDERED: COLACE 100100 MG/CAP PO (16:14)
[2020-10-03] MEDS ORDERED: LOPRESSOR 225 MG/TAB PO (16:15)
[2020-10-03] MEDS ORDERED: SYNTHROID0.125 MG/T PO (16:15)
[2020-10-03] MEDS ORDERED: ASPIRIN E.C. 8181 MG PO (16:18)
[2020-10-03] MEDS ORDERED: LIPITOR 80MG80 MG PO (16:19)
[2020-10-03] MEDS ORDERED: DULCOLAX S10 MG/SUPP RC (16:21)
[2020-10-03] MEDS ORDERED: GOOD NEIGH1200 MG/15 PO (16:25)
[2020-10-03] MEDS ORDERED: ZOFRAN ODT4 MG PO (16:27)
[2020-10-03] MEDS ORDERED: TYLENOL SU650 MG/SUP RC (16:29)
[2020-10-03] MEDS ORDERED: TYLENOL 325MG325 MG PO (16:30)
[2020-10-03] MEDS ORDERED: VENELEX OINTMENT5 G1 TP (16:32)
[2020-10-03 19:34] VITALS: BP 120/80; PULSE 79; TEMP 98.2
--- NOTE | 2020-10-03 21:36 | NUR ---
ALERT AND OX4. SLEPT THROUGH DINNER. GAVE HER A SANDWICH BOX AND JUICE. C/O CONSTIATION YET HAD A BM YESTURDAY. OFFERED COLACE, DULCOLAX AND COLACE WITH PRUNE JUICE STATES SHE HAD TRIED THOSE IS PAST THEY DONT WORK. DID TAKE APPLE JUICE. ASSESSMENT COMPLETE, POC DISCUSSED. PM MEDS GIVEN. DENIES PAIN. EDEMA +4 IN LOWER LEGS AND UPPER HAND. BUMEX GTT GOING PER ORDER. CALL LIGHT WI REACH. ACCURATE I/O.
[2020-10-03 22:31] VITALS: BP 125/83; PULSE 80; TEMP 98.5
[2020-10-03 22:37] LABS: TOTAL IRON BINDING CAPACITY 272 ug/dL (265-497)
[2020-10-04 04:19] VITALS: BP 122/46; PULSE 59; TEMP 97.8
--- NOTE | 2020-10-04 05:24 | NUR ---
RESTED THROUGH THE NIGHT WITHOUT INCIDENT. GOOD URINE OUTPT W BUMEX GTT RUNNING OVERNIGHT. C/O BODY PAIN THIS AM. NEEDS MET.
[2020-10-04 06:22] LABS: BASO # 0.1 (0.0-0.2); BASO % 0.7 % (0.0-2.0); EOS # 0.2 (0.0-0.7); EOS % 2.7 % (0-4.0); GRAN # 4.2 (1.4-6.5); GRAN % 58.7 % (42.2-75.2); LYMPH # 2.1 (1.2-3.4); LYMPH % 29.6 % (20.0-51.0); MEAN CELL VOLUME 98 fl (80.0-100.0); MEAN CORPUSCULAR HGB CONC 31 g/dl (33.0-37.0); MONO # 0.6 (0.1-0.6); MONO % 7.7 % (1.7-9.3); PLATELET COUNT 227 K/mm3 (130-400); RED BLOOD COUNT 2.36 M/mm3 (4.10-5.30); REDCELL DISTRIBUTION WIDTH-CV 17.2 % (11.5-14.5)
[2020-10-04 06:25] LABS: HEMOGLOBIN 7.1 g/dl (12.5-16.0); MEAN CORPUSCULAR HEMOGLOBIN 30 pg (27.0-31.0)
[2020-10-04 06:35] LABS: ALBUMIN 2.4 gm/dL (3.5-5.0); CALCIUM 7.4 mg/dL (8.4-10.2); CREATININE, serum 2.24 (0.52-1.25); PHOSPHOROUS 3.7 mg/dL (2.5-4.5); POTASSIUM 3.4 mmol/L (3.4-5.0)
[2020-10-04 07:08] LABS: INR 1.2 (0.8-3.0); PROTHROMBIN TIME 13.1 SECONDS (9.7-12.8)
[2020-10-04 08:33] VITALS: BP 114/50; PULSE 64; TEMP 98.5
--- NOTE | 2020-10-04 09:36 | NUR ---
Initial visit attempt; Nurses with patient, Biomedical Engineering Aide left 'prayer card' and information of how to reach Biomedical Engineering Aide if patient would like a visit from Biomedical Engineering Aide.
--- NOTE | 2020-10-04 09:41 | NUR ---
KELECHI contacted Erendira at [facility] and confirmed that the patient has been residing their for a SNF stay. KELECHI contacted the patient's , Molina (ph#[phone]), to discuss discharge plan. The patient lives in [place] with her . Molina confirms that the patient has been at [facility] for SNF. Her PCP is Dr. [place] Watson. Molina reports he is unsure of what the d/c plan will be. He would like to see what is going on. Molina reports that he is actually here at the hospital and gave his phone to the patient. KELECHI reviewed the above with the patient. The patient reports that she would like to return back to [facility] SNF upon discharge. She states that she does have a DPOA-HC and that Dr. Watson's office should have a copy of it. KELECHI contacted Lisa Aguilar, social insurance analyst, at Dr. Watson's office and requested a copy of he DPOA-HC. Lisa reports that she will look for the DPOA-HC and will fax it to the medical unit. KELECHI contacted and faxed updates to Erendira at [facility]. SW to continue to follow. *Discharge plan: SNF*
[2020-10-04 11:26] VITALS: BP 120/65; PULSE 66; TEMP 98.3
[2020-10-04 16:33] VITALS: BP 130/96; PULSE 47; TEMP 98.3
[2020-10-04 19:17] VITALS: BP 138/76; PULSE 122; TEMP 98.4
--- NOTE | 2020-10-04 21:20 | NUR ---
DROWSY THIS EVENING. ALERT OX3 WHEN WAKES. EDEMA IMPROVING SOMEWHAT TO BILATERAL LOWER LEG AND UPPER EXTREM. STICT I/O ENFORCED. BUMEX GTT RUNNING PER ORDER. TRIPLE LEFT IJ FLUSHED W GOOD BLOOD RETURN. PASSING GAS, BM TODAY. CALL LIGHT WI REACH. POC DISCUSSED. PM MEDS GIVEN.
[2020-10-04 23:42] VITALS: BP 133/68; PULSE 61; TEMP 99.4
[2020-10-05 04:34] VITALS: BP 115/44; PULSE 61; TEMP 97.6
--- NOTE | 2020-10-05 04:56 | NUR ---
SLEPT THROUGH THE NIGHT WITHOUT INCIDENT. DID HAVE DAY AND NIGHT TIME MIXED UP LAST NIGHT OTHERWISE COHERANT. NEEDS MET. GOOD URINE OUTPT W BUMEX GTT.
[2020-10-05 06:57] LABS: INR 1.2 (0.8-3.0); PROTHROMBIN TIME 13.4 SECONDS (9.7-12.8)
[2020-10-05 06:58] LABS: BASO # 0.1 (0.0-0.2); BASO % 0.5 % (0.0-2.0); EOS # 0.2 (0.0-0.7); EOS % 1.6 % (0-4.0); GRAN # 7.8 (1.4-6.5); GRAN % 69.1 % (42.2-75.2); LYMPH # 2.4 (1.2-3.4); MEAN CELL VOLUME 98 fl (80.0-100.0); MEAN CORPUSCULAR HGB CONC 30 g/dl (33.0-37.0); MEAN PLATELET VOLUME 8.9 fl (7.4-10.4); MONO # 0.8 (0.1-0.6); MONO % 6.9 % (1.7-9.3); PLATELET COUNT 243 K/mm3 (130-400)
[2020-10-05 07:00] LABS: ALBUMIN 2.5 gm/dL (3.5-5.0); CALCIUM 7.4 mg/dL (8.4-10.2); CREATININE, serum 2.91 (0.52-1.25); HEMATOCRIT 24.4 % (37.0-47.0); HEMOGLOBIN 7.4 g/dl (12.5-16.0); MEAN CORPUSCULAR HEMOGLOBIN 30 pg (27.0-31.0); PHOSPHOROUS 3.5 mg/dL (2.5-4.5); POTASSIUM 3.2 mmol/L (3.4-5.0)
--- NOTE | 2020-10-05 07:00 | NUR ---
Report with DENIA Ray. Pt sitting up in bed, states "I feel great." No needs reported. Call light in reach.
[2020-10-05 08:06] VITALS: BP 97/51; PULSE 117; TEMP 99.1
--- NOTE | 2020-10-05 08:20 | NUR ---
Assessment complete. Pt sitting up in bed, A&O x 4, reports slight headache and generalized aches, requesting PRN medication which is provided. Sched medications administered. Pt with lower BP than previous trend and increased heart rate, denies symptoms, left message with provider. Bumex drip continues at this time per orders to central line in left IJ, no s/s of complications. 2+ edema to BLE and 1+ to BUE. Pastor to DD with clear, yellow urine and nephrostomy tube to right side with clear, yellow urine. No further needs reported. Call light in reach.
--- NOTE | 2020-10-05 08:28 | NUR ---
Erendira, at [facility], reports that they would love to have the patient back, but it will depend on their room availability and when she is ready to dc; as the patient and her opted to not hold their room. SW to update the patient and her .
--- NOTE | 2020-10-05 09:35 | NUR ---
KELECHI met with the patient and her , Molina, and updated them about [facility]. KELECHI discussed having a second preference and sending referrals to other facilities. The patient and her declined to send other referrals. The patient has been to [facility] in [facility] past and states that she will not return there. The patient reports that if [facility] does not have a bed available at [place], then she will return home with home health. She states that she had [facility] in the past and would want to use them again. Molina was supportive of the patient's decision. He states that he is always at home, besides [facility] KELECHI contacted and faxed a referral to Luda at [facility]. Luda reports that they are able to accept the patient for services. *Discharge plan: [facility] SNF, if bed available. If bed not available, home with and home health*
[2020-10-05 11:17] VITALS: BP 116/75; PULSE 55; TEMP 99.2
--- NOTE | 2020-10-05 13:11 | NUR ---
Bumex infusion restarted at new rate per orders (0.2 mg/hr).
--- NOTE | 2020-10-05 15:21 | NUR ---
KELECHI updated Dr. Loera on the patient's dc plan. Dr. Loera reports that the patient may be able to dc Saturday. KELECHI notified and faxed updates to Erendira at [facility].
[2020-10-05 16:35] VITALS: BP 149/49; PULSE 54; TEMP 97.5
[2020-10-05 20:19] VITALS: BP 156/41; PULSE 61; TEMP 98.6
--- NOTE | 2020-10-05 22:40 | NUR ---
PT RESTING IN BED. EVENING MEDICATIONS GIVEN. PT DENIES ANY PAIN AT THIS TIME. PT HAD 3+ GENERALIZED EDEMA. BUMEX DRIP INFUSING. PT DENIES ANY OTHER NEEDS AT THIS TIME. CALL LIGHT WITHIN REACH. WILL CONTINUE TO MONITOR.
[2020-10-06 00:30] VITALS: BP 129/63; PULSE 67; TEMP 97.8
[2020-10-06 04:35] VITALS: BP 96/51; PULSE 92; TEMP 98.2
--- NOTE | 2020-10-06 05:27 | NUR ---
PT HAD A RESTFUL NIGHT. ACCURATE I&O OBTAINED PER ORDERS. NURSE AIDEKIRIT STATES WHEN SHE EMPTIED HER [place] SHE ONLY HAD 450 OUTPUT IN THE LAST 11 HOURS. SHE ALSO STATED IT HAD A VERY FOUL SMELL. WILL CONTINUE TO MONITOR.
[2020-10-06 06:46] LABS: BASO # 0.1 (0.0-0.2); BASO % 0.7 % (0.0-2.0); EOS # 0.2 (0.0-0.7); EOS % 2.4 % (0-4.0); GRAN # 6.3 (1.4-6.5); GRAN % 61.9 % (42.2-75.2); LYMPH # 2.8 (1.2-3.4); LYMPH % 26.9 % (20.0-51.0); MEAN CELL VOLUME 98 fl (80.0-100.0); MEAN CORPUSCULAR HGB CONC 30 g/dl (33.0-37.0); MEAN PLATELET VOLUME 8.9 fl (7.4-10.4); MONO # 0.8 (0.1-0.6); MONO % 7.3 % (1.7-9.3); PLATELET COUNT 258 K/mm3 (130-400); RED BLOOD COUNT 2.51 M/mm3 (4.10-5.30); REDCELL DISTRIBUTION WIDTH-CV 17.3 % (11.5-14.5)
[2020-10-06 06:47] LABS: HEMATOCRIT 24.5 % (37.0-47.0); HEMOGLOBIN 7.4 g/dl (12.5-16.0); MEAN CORPUSCULAR HEMOGLOBIN 29 pg (27.0-31.0)
[2020-10-06 06:59] LABS: INR 1.1 (0.8-3.0); PROTHROMBIN TIME 12.6 SECONDS (9.7-12.8)
[2020-10-06 07:06] LABS: ALBUMIN 2.6 gm/dL (3.5-5.0); CALCIUM 7.6 mg/dL (8.4-10.2); CREATININE, serum 2.54 (0.52-1.25); POTASSIUM 3.1 mmol/L (3.4-5.0)
--- NOTE | 2020-10-06 07:15 | NUR ---
Report from DENIA Rodriguez. Pt resting in bed. Awake and alert. No needs at this time. Call mckeon in reach.
[2020-10-06 07:31] VITALS: BP 118/46; PULSE 76; TEMP 98.1
--- NOTE | 2020-10-06 09:58 | NUR ---
Nephrostomy draining adequately. No issues. 100mL clear, yellow output
[2020-10-06 11:48] VITALS: BP 116/45; PULSE 62; TEMP 98.1
[2020-10-06] MEDS ORDERED: LANOXIN 0.120.125 MG PO (14:22)
[2020-10-06] MEDS ORDERED: ZAROXOLYN 2.52.5 MG PO ×2 (14:23)
[2020-10-06] MEDS ORDERED: K-DUR 10 MEQ T10 MEQ PO ×2 (14:25)
--- NOTE | 2020-10-06 14:38 | NUR ---
Erendira with [facility] accepts patient to skilled care this date. pond worker arranged patient's transfer at 3:30 via [facility] wheelchair van. Worker was unsuccessful at reaching via cell phone. Patient states she will call at home and advise of discharge.
--- NOTE | 2020-10-06 15:03 | NUR ---
Pastor discontinued. Output yellow, cloudy w/slight sediment. Magaly care performed.
[2020-10-06 15:29] VITALS: BP 116/45; PULSE 62; TEMP 98.1
== END 2020-10-06 16:00 | DRG 699 ==
LOC: MEDICAL 09:59
PROVIDERS: ADMIT Internal Medicine Nephrology
PROC: 02HV33Z Insertion of Infusion Device into Superior Vena Cava, Percutaneous Approach (ICD-10-PCS; principal; 2020-10-03)
DX: N04.9 Nephrotic syndrome with unspecified morphologic changes (principal); I13.0 Hypertensive heart and chronic kidney disease with heart failure and stage 1 through stage 4 chronic kidney disease, or unspecified chronic kidney disease; I50.22 Chronic systolic (congestive) heart failure; N18.4 Chronic kidney disease, stage 4 (severe); E11.22 Type 2 diabetes mellitus with diabetic chronic kidney disease; E78.5 Hyperlipidemia, unspecified; I25.10 Atherosclerotic heart disease of native coronary artery without angina pectoris; Z95.5 Presence of coronary angioplasty implant and graft; I73.9 Peripheral vascular disease, unspecified; E03.9 Hypothyroidism, unspecified; F41.9 Anxiety disorder, unspecified; F32.9 Major depressive disorder, single episode, unspecified; I25.2 Old myocardial infarction; Z79.01 Long term (current) use of anticoagulants; Z87.891 Personal history of nicotine dependence; Z88.1 Allergy status to other antibiotic agents; Z88.2 Allergy status to sulfonamides; Z88.8 Allergy status to other drugs, medicaments and biological substances; D63.1 Anemia in chronic kidney disease; Z79.4 Long term (current) use of insulin; I48.91 Unspecified atrial fibrillation; Z20.822 Contact with and (suspected) exposure to COVID-19; E66.01 Morbid (severe) obesity due to excess calories; M79.7 Fibromyalgia
CPT/HCPCS: A4314; J1650; J1756; J1815; J2405; J7050

== ENCOUNTER 2020-11-25 14:12 | Emergency (ER) | payer MEDICARE, BC, MEDICAID ==
[~2020-11-25] VITALS: Ht 157.5 cm; Wt 113.6 kg
[~2020-11-25 14:12] MED LIST changes: +ASPIRIN E.C. 8181 MG PO; +COLACE 100100 MG/CAP PO; +COUMADIN 1MG1 MG/TAB PO; +DEMADEX 20MG20 M1 PO; +DULCOLAX S10 MG/SUPP RC; +GOOD NEIGH1200 MG/15 PO; +K-DUR 10 MEQ T10 MEQ PO; +LANOXIN 0.120.125 MG PO; +NOVOLIN N100 U/ML SQ; +NOVOLIN R100 U/ML SQ; +TYLENOL 325MG325 MG PO; +TYLENOL SU650 MG/SUP RC; +VENELEX OINTMENT5 G1 TP; +ZAROXOLYN 2.52.5 MG PO; +ZOFRAN ODT4 MG PO
[2020-11-25 14:28] VITALS: TEMP 98.6
[2020-11-25 15:20] VITALS: BP 130/53; PULSE 64
== END 2020-11-25 15:20 | disposition home or self-care (01) ==
LOC: COL.ER 14:12
DX: Z43.6 Encounter for attention to other artificial openings of urinary tract (principal); Z48.01 Encounter for change or removal of surgical wound dressing; I50.9 Heart failure, unspecified; N18.30 Chronic kidney disease, stage 3 unspecified; Z87.891 Personal history of nicotine dependence

== ENCOUNTER 2020-12-01 12:20 | Day surgery (SDC) | payer MEDICARE, BC, MEDICAID ==
[~2020-12-01] VITALS: Ht 157.5 cm; Wt 99.5 kg
[2020-12-01 13:36] VITALS: BP 105/40; PULSE 65; TEMP 97.4
[2020-12-01] MEDS ORDERED: PRINIVIL2.5 MG PO (13:52)
[2020-12-01] MEDS ORDERED: COUMADIN 2MG2 MG/TAB PO (13:54)
[2020-12-01] MEDS ORDERED: HUMULIN R 10100 U/ML SQ ×2 (14:05→14:06)
[2020-12-01] MEDS ORDERED: HUMULIN N 10100 U/ML SQ (14:29)
[2020-12-01] MEDS ORDERED: OMNICEF 300MG300 MG PO (15:34)
[2020-12-01] MEDS ORDERED: ZOFRAN 4MG T4 MG/TAB PO ×2 (15:34)
[2020-12-01 15:51] VITALS: TEMP 98.2
[2020-12-01 16:00] VITALS: BP 120/68; PULSE 60
--- NOTE | 2020-12-01 16:00 | NUR ---
Patient returns to room 3 per cart from PACU accompanied by Becka LOZA and is awake and alert. Denies pain or nausea. IV fluids infusing. Spouse in room. Temp 97.0 and room air sats 100%. Siderails up x2. Taking sips of apple juice.
[2020-12-01 16:15] VITALS: BP 121/57; PULSE 61
--- NOTE | 2020-12-01 16:15 | NUR ---
Eating few bites of jello. Talking with spouse and staff.
[2020-12-01 16:30] VITALS: BP 128/43; PULSE 60
--- NOTE | 2020-12-01 16:30 | NUR ---
Sitting on edge of bed. Patient was able to sit self up. Dr. Mtz in and checks on patient. Dressing clean and dry on the right side covering nephrostomy tube site that was removed in surgery. Instructed that the site may drain some and to change dressing when needed. Given gauze and tape.
--- NOTE | 2020-12-01 16:33 | NUR ---
Assisted to the bedside commode with use of walker and 2 person assist. Tolerated the activity well. Has been talking with spouse. Spouse states that the patient in normally incontinent of urine and wears depends. Yung cormier.
--- NOTE | 2020-12-01 16:40 | NUR ---
IV discontinued and site is free of redness. Assisted patient with dressing. Patient has few drops of urine. Assisted into wheelchair and ready for discharge.
--- NOTE | 2020-12-01 16:50 | NUR ---
Dismissal instructions given and voices understanding of these. Instructed that antibiotic and nausea scripts were sent to pharmacy.
--- NOTE | 2020-12-01 16:57 | NUR ---
Patient dismissed to home driven by spouse with dismissal instructions in hand.
== END 2020-12-01 16:57 | disposition home or self-care (01) ==
LOC: SDCO 12:20
DX: N20.0 Calculus of kidney (principal); I25.10 Atherosclerotic heart disease of native coronary artery without angina pectoris; I13.0 Hypertensive heart and chronic kidney disease with heart failure and stage 1 through stage 4 chronic kidney disease, or unspecified chronic kidney disease; I50.9 Heart failure, unspecified; I48.91 Unspecified atrial fibrillation; I25.2 Old myocardial infarction; G47.33 Obstructive sleep apnea (adult) (pediatric); M79.7 Fibromyalgia; G89.29 Other chronic pain; E11.9 Type 2 diabetes mellitus without complications; E03.9 Hypothyroidism, unspecified; D64.9 Anemia, unspecified; N18.4 Chronic kidney disease, stage 4 (severe); E11.22 Type 2 diabetes mellitus with diabetic chronic kidney disease; M54.9 Dorsalgia, unspecified; F32.9 Major depressive disorder, single episode, unspecified; F41.9 Anxiety disorder, unspecified; Z20.822 Contact with and (suspected) exposure to COVID-19; Z79.899 Other long term (current) drug therapy; Z79.4 Long term (current) use of insulin; Z87.891 Personal history of nicotine dependence; Z79.82 Long term (current) use of aspirin; Z79.01 Long term (current) use of anticoagulants; Z87.440 Personal history of urinary (tract) infections; Z86.19 Personal history of other infectious and parasitic diseases
CPT/HCPCS: C1769; C1894; C2617; J0690; J1100; J2405; J2704; J3010; Q9967

== ENCOUNTER 2020-12-02 02:42 | Inpatient (IN) | payer MEDICARE, BC, MEDICAID ==
[~2020-12-02] VITALS: Ht 167.6 cm; Wt 104.4 kg
[2020-12-02] VITALS (501 sets, daily range): BP systolic 108–120; BP diastolic 37–46; PULSE 54–69; TEMP 97.4–98.8; O2SAT 41–100
[~2020-12-02 02:42] MED LIST changes: +COUMADIN 2MG2 MG/TAB PO; +OMNICEF 300MG300 MG PO; +PRINIVIL2.5 MG PO; +ZOFRAN 4MG T4 MG/TAB PO
[2020-12-02 03:11] LABS: HEMATOCRIT 37.8 % (37.0-47.0); HEMOGLOBIN 11.4 g/dl (12.5-16.0); MEAN CELL VOLUME 105 fl (80.0-100.0); MEAN CORPUSCULAR HEMOGLOBIN 32 pg (27.0-31.0); MEAN CORPUSCULAR HGB CONC 30 g/dl (33.0-37.0); MEAN PLATELET VOLUME 9.2 fl (7.4-10.4); PLATELET COUNT 322 K/mm3 (130-400); REDCELL DISTRIBUTION WIDTH-CV 21.4 % (11.5-14.5)
[2020-12-02 03:34] LABS: ALBUMIN 2.5 gm/dL (3.4-4.8); BILIRUBIN,TOTAL 0.8 mg/dL (0.2-1.2); CALCIUM 7.6 mg/dL (8.4-10.2); CREATININE, serum 4.57 mg/dL (0.57-1.11); POTASSIUM 5.2 mmol/L (3.5-4.5); TOTAL PROTEIN 7.7 gm/dL (6.2-8.1)
[2020-12-02 03:55] LABS: BAND 8 % (0-10); BASOPHIL 1 % (0-2); LYMPHOCYTE 11 % (20.0-51.0); METAMYELOCYTE 1 % (0-0); NEUTROPHILS 77 % (42.0-75.2); PLATELET ESTIMATE NORMAL (NORMAL)
[2020-12-02 03:56] LABS: ANISOCYTOSIS 2+; HYPOCHROMIA 3+
[2020-12-02 04:08] LABS: INR 3.9 (0.8-3.0); PROTHROMBIN TIME 43.4 SECONDS (9.7-12.8)
[2020-12-02 04:11] LABS: PARTIAL THROMBOPLASTIN TIME 36.4 SECONDS (26.0-37.0)
[2020-12-02 04:37] LABS: COLLECTION METHOD CLEAN CATCH
[2020-12-02 04:53] LABS: MUCOUS Present /lpf; PH 6 (5-8); SQUAMOUS EPITHELIAL None Seen /hpf; URINE APPEARANCE Cloudy; URINE BACTERIA Rare /hpf; URINE BILIRUBIN Negative (NEGATIVE); URINE BLOOD 2+ (NEGATIVE); URINE COLOR Red; URINE GLUCOSE 3+ (NEGATIVE); URINE KETONE Trace (NEGATIVE); URINE LEUKOCYTE ESTERASE 2+ (NEGATIVE); URINE NITRATE Negative (NEGATIVE); URINE PROTEIN(semi-quant) 2+ (NEGATIVE); URINE RBC >50 /hpf; URINE UROBILINOGEN Negative (NEGATIVE)
--- NOTE | 2020-12-02 07:00 | NUR ---
0800: MD Evaristo called for consult - PICC line access requested and denied d/t potential need for hemodialysis. Pt adamant about "not ever going to do dialysis" - MD Evaristo again denied PICC 0830: MD Betito notifed and updated on: all critical labs, pt refusing venipuncture for blood glucose, AccuChecks still reading "Hi". Orders for central line obtained. 0845: MD Juliann called for central line placement - informed pt's INR: 3.9 - Juliann discussed with pt about risks of procedure - MD and pt both agree PICC line is safer option 0900: ROSALBA Jay (nephrology) informed of aforementioned. ROSALBA Jay gave the OK for PICC placement in pt's dominant arm 0905: DENIA Schaefer [facility] notified
[2020-12-02 07:03] LABS: ALBUMIN 2.2 gm/dL (3.4-4.8); BILIRUBIN,TOTAL 0.8 mg/dL (0.2-1.2); CREATININE, serum 4.5 mg/dL (0.57-1.11); POTASSIUM 5.5 mmol/L (3.5-4.5); TOTAL PROTEIN 6.5 gm/dL (6.2-8.1)
--- NOTE | 2020-12-02 09:04 | NUR ---
Seam Press Operator met with patient to complete assessment and discuss discharge plan. Patient states she and her , Molina ([phone]) live in a mobile home in [place]. Patient's built a wheelchair ramp for easier access, leaving only one step to enter. Patient relies heavily on her wheelchair and she also has a cane, walker, shower chair, a bedside commode, and a hospital bed. Patient sees Dr. Randall Watson but she is considering changing PCP's and this worker offered to assist with that if she chooses to. She receives her medications from [facility] in [place] and so far, patient has had no difficulty affording them. Patient also states she has a completed MPOA naming her and it is on file at Dr. Watson's office. This worker left a message for Dr. Watson's office to fax the hospital with a copy. SW will continue following for patient's needs.
--- NOTE | 2020-12-02 10:00 | NUR ---
From 0700 until PICC placement, pt refusing lab staff to perfrom venipuncuture for accurate glucose testing.
[2020-12-02 10:43] LABS: CALCIUM 7.2 mg/dL (8.4-10.2); CREATININE, serum 4.59 mg/dL (0.57-1.11); POTASSIUM 4.4 mmol/L (3.5-4.5)
--- NOTE | 2020-12-02 12:00 | NUR ---
Insulin gtt failed to be restarted after drawing off PICC line at 1100 Lab's blood glucose reading at 1200 = 630mg/dL 1200: Insulin gtt restarted Insulin gtt to be kept at 8.5U/hr at 1200 and to be titrated again at 1300 with whole blood glucose lab test per MD Betito
[2020-12-02 13:56] LABS: CALCIUM 6.9 mg/dL (8.4-10.2); CREATININE, serum 4.57 mg/dL (0.57-1.11); POTASSIUM 4.3 mmol/L (3.5-4.5)
--- NOTE | 2020-12-02 15:06 | NUR ---
MD Betito aware of delay in "hourly" blood sugar titrations d/t lab staff required to run tests
[2020-12-02 16:33] LABS: CALCIUM 7.2 mg/dL (8.4-10.2); CREATININE, serum 4.5 mg/dL (0.57-1.11); POTASSIUM 4.1 mmol/L (3.5-4.5)
--- NOTE | 2020-12-02 19:30 | NUR ---
Insulin drip verified by this RN from off going nurse; infusing at 8 units/hour.
[2020-12-03] VITALS (1245 sets, daily range): BP systolic 105–131; BP diastolic 50–99; PULSE 32–66; TEMP 96.3–97.5; O2SAT 80–100
[2020-12-03 04:38] LABS: MEAN CELL VOLUME 101 fl (80.0-100.0); MEAN CORPUSCULAR HGB CONC 31 g/dl (33.0-37.0); PLATELET COUNT 272 K/mm3 (130-400); RED BLOOD COUNT 2.91 M/mm3 (4.10-5.30); REDCELL DISTRIBUTION WIDTH-CV 21.2 % (11.5-14.5)
[2020-12-03 04:43] LABS: HEMATOCRIT 29.4 % (37.0-47.0); HEMOGLOBIN 9.1 g/dl (12.5-16.0); MEAN CORPUSCULAR HEMOGLOBIN 31 pg (27.0-31.0)
[2020-12-03 04:53] LABS: CALCIUM 6.6 mg/dL (8.4-10.2); CREATININE, serum 4.62 mg/dL (0.57-1.11); POTASSIUM 4.8 mmol/L (3.5-4.5)
[2020-12-03 04:56] LABS: PROTHROMBIN TIME 67.5 SECONDS (9.7-12.8)
[2020-12-03 05:03] LABS: ANISOCYTOSIS 1+; BAND 1 % (0-10); LYMPHOCYTE 5 % (20.0-51.0); NEUTROPHILS 91 % (42.0-75.2); PLATELET ESTIMATE NORMAL (NORMAL)
[2020-12-03 05:04] LABS: HYPOCHROMIA 1+; TOXIC GRANULATION PRESENT
[2020-12-03 05:05] LABS: SCHISTOCYTES 1+
--- NOTE | 2020-12-03 11:17 | NUR ---
REPORT RECEIVED FROM DENIA ARCHULETA; PATIENT CURRENTLY SLEEPING AND APPEARS COMFORTABLE. VITAL SIGNS ARE STABLE AND WITHIN NORMAL LIMITS.
[2020-12-03 12:38] LABS: CALCIUM 6.7 mg/dL (8.4-10.2); CREATININE, serum 4.54 mg/dL (0.57-1.11); POTASSIUM 3.9 mmol/L (3.5-4.5)
[2020-12-03 16:34] LABS: MEAN CELL VOLUME 99 fl (80.0-100.0); MEAN CORPUSCULAR HGB CONC 32 g/dl (33.0-37.0); MEAN PLATELET VOLUME 8.6 fl (7.4-10.4); PLATELET COUNT 209 K/mm3 (130-400); RED BLOOD COUNT 2.71 M/mm3 (4.10-5.30)
[2020-12-03 16:41] LABS: HEMATOCRIT 26.7 % (37.0-47.0); HEMOGLOBIN 8.4 g/dl (12.5-16.0); MEAN CORPUSCULAR HEMOGLOBIN 31 pg (27.0-31.0)
[2020-12-03 16:45] LABS: CALCIUM 6.5 mg/dL (8.4-10.2); POTASSIUM 3.6 mmol/L (3.5-4.5)
[2020-12-03 17:00] LABS: CREATININE, serum 4.37 mg/dL (0.57-1.11)
[2020-12-03 17:18] LABS: ANISOCYTOSIS 2+; BAND 2 % (0-10); HYPOCHROMIA 2+; LYMPHOCYTE 14 % (20.0-51.0); NEUTROPHILS 79 % (42.0-75.2); PLATELET ESTIMATE NORMAL (NORMAL)
[2020-12-03 17:19] LABS: SCHISTOCYTES 1+; TEAR DROP CELLS 1+
[2020-12-03 17:21] LABS: POIKILOCYTOSIS 1+
--- NOTE | 2020-12-03 19:49 | NUR ---
REPORT RECEIVED FROM FIDELINA LOZA. PT REPOSITIONED AND EATING IN BED. VSS. PT ON 2L O2 PER NC. CALL LIGHT AND PHONE WITHIN REACH.
--- NOTE | 2020-12-03 20:00 | NUR ---
PER DR. ORTA WE STOPPED THE INSULIN DRIP, D5 1/2 NS, AND Q1HR ACCU-CHECKS TWO HOURS AFTER GIVING LEVEMIR AND EATING SOME FOOD.
[2020-12-04] VITALS (751 sets, daily range): BP systolic 106–121; BP diastolic 61–78; PULSE 61–86; TEMP 96.3–98.1; O2SAT 67–100
[2020-12-04 05:24] LABS: MEAN CELL VOLUME 100 fl (80.0-100.0); MEAN CORPUSCULAR HGB CONC 31 g/dl (33.0-37.0); MEAN PLATELET VOLUME 8.8 fl (7.4-10.4); PLATELET COUNT 234 K/mm3 (130-400); RED BLOOD COUNT 2.83 M/mm3 (4.10-5.30); REDCELL DISTRIBUTION WIDTH-CV 21.2 % (11.5-14.5)
[2020-12-04 05:25] LABS: HEMATOCRIT 28.2 % (37.0-47.0); HEMOGLOBIN 8.7 g/dl (12.5-16.0); MEAN CORPUSCULAR HEMOGLOBIN 31 pg (27.0-31.0)
[2020-12-04 05:42] LABS: CALCIUM 6.6 mg/dL (8.4-10.2); CREATININE, serum 4.79 mg/dL (0.57-1.11); POTASSIUM 3.9 mmol/L (3.5-4.5)
[2020-12-04 06:12] LABS: BAND 5 % (0-10); EOSINOPHIL 1 % (0-4); LYMPHOCYTE 15 % (20.0-51.0); METAMYELOCYTE 2 % (0-0); NEUTROPHILS 70 % (42.0-75.2); PLATELET ESTIMATE NORMAL (NORMAL)
--- NOTE | 2020-12-04 06:13 | NUR ---
PT A/O X4 BUT DID WAKE WITH CONFUSION ABOUT HER ROOM "BEING LONGER THAN BEFORE." PT EASILY REORIENTED. VSS. 2L O2 PER NC. DID HAVE INCONT STOOL X3. EXCORIATION TO GROIN, BARRIER CREAM APPLIED. COMPLAINTS OF NECK AND SHOULDER PAIN. PT ASSISTED WITH REPOSITIONING FREQUENTLY AND OFFERED TYLENOL BUT PT REFUSED. SHERWOOD WITH GROSS HEMATURIA, IRRIGATED X3 WITH SMALL CLOTS IN RETURN. DOUBLE PICC TO RIGHT UPPER ARM FLUSHES AND ASPIRATES WELL. PRN MELATONIN GIVEN DOCUMENTED PER PT REQUEST. PT EDUCATED ON IMPORTANCE OF ASSISTING IN CARES AND TURNING. REINFORCEMENT NEEDED. PT RESTING IN BED WITH EYES CLOSED. CALL LIGHT WITHIN REACH.
[2020-12-04 06:26] LABS: INR 3.5 (0.8-3.0); PROTHROMBIN TIME 39.6 SECONDS (9.7-12.8)
--- NOTE | 2020-12-04 07:37 | NUR ---
REPORT RECEIVED FROM DENIA VAZ; PATIENT CURRENTLY RESTING COMFORTABLY IN BED ASLEEP.
[2020-12-04 20:26] LABS: COLLECTION METHOD IN
[2020-12-04 20:35] LABS: PH 6 (5-8); SQUAMOUS EPITHELIAL None Seen /hpf; URINE APPEARANCE Turbid; URINE BACTERIA None Seen /hpf; URINE BILIRUBIN Negative (NEGATIVE); URINE BLOOD 3+ (NEGATIVE); URINE COLOR Red; URINE GLUCOSE 1+ (NEGATIVE); URINE KETONE Trace (NEGATIVE); URINE LEUKOCYTE ESTERASE Trace (NEGATIVE); URINE NITRATE Negative (NEGATIVE); URINE PROTEIN(semi-quant) 2+ (NEGATIVE); URINE RBC None Seen /hpf; URINE UROBILINOGEN Negative (NEGATIVE); URINE WBC None Seen /hpf
[2020-12-05 04:49] VITALS: BP 106/78; PULSE 75; TEMP 97.8
--- NOTE | 2020-12-05 05:46 | NUR ---
RESTED THROUGH THE NIGHT WITHOUT INCIDENT. NEEDS MET.
[2020-12-05 07:54] VITALS: BP 93/30; PULSE 71; TEMP 97.4
--- NOTE | 2020-12-05 10:13 | NUR ---
Lisa Aguilar, caser shoe parts at [facility] contacted KELECHI. Lisa asked that we discuss SNF with the patient. She reports that the patient thrives in SNF, but once she gets home with her , they fall back in their ways. SW attended clinical rounds. PT/OT has been ordered. Awaiting therapy's recs.
[2020-12-05 10:42] LABS: INR 1.8 (0.8-3.0); PROTHROMBIN TIME 19.8 SECONDS (9.7-12.8)
[2020-12-05 10:47] LABS: CALCIUM 7.1 mg/dL (8.4-10.2); POTASSIUM 3.8 mmol/L (3.5-4.5)
[2020-12-05 10:55] LABS: MEAN CELL VOLUME 97 fl (80.0-100.0); MEAN CORPUSCULAR HGB CONC 32 g/dl (33.0-37.0); MEAN PLATELET VOLUME 9.1 fl (7.4-10.4); PLATELET COUNT 185 K/mm3 (130-400); RED BLOOD COUNT 2.67 M/mm3 (4.10-5.30); REDCELL DISTRIBUTION WIDTH-CV 20.9 % (11.5-14.5)
[2020-12-05 10:58] LABS: HEMATOCRIT 25.8 % (37.0-47.0); HEMOGLOBIN 8.2 g/dl (12.5-16.0); MEAN CORPUSCULAR HEMOGLOBIN 31 pg (27.0-31.0)
--- NOTE | 2020-12-05 11:15 | NUR ---
PT RESTING IN BED. MORNING MEDICATIONS GIVEN. SHIFT ASSESSMENT COMPLETED. PICC FLUSHES AND HAS BLOOD RETURN. DENIES ANY PAIN OR NEEDS. WILL CONTINUE TO MONITOR.
[2020-12-05 11:34] LABS: BAND 2 % (0-10); EOSINOPHIL 1 % (0-4); LYMPHOCYTE 21 % (20.0-51.0); METAMYELOCYTE 2 % (0-0); NEUTROPHILS 71 % (42.0-75.2); PLATELET ESTIMATE NORMAL (NORMAL)
[2020-12-05 11:44] VITALS: BP 133/95; PULSE 67; TEMP 97.8
--- NOTE | 2020-12-05 14:37 | NUR ---
DR. KAN CONTACTED PER ORDERS. MADE AWARE OF NON THERAPEUTIC INR AND HEMATURIA. DOES NOT BELIEVE CBI IS NECESSARY SINCE CATHETER IS NOT CLOTTING OFF. STATES HE PLANS ON SEEING HER TOMORROW.
--- NOTE | 2020-12-05 15:17 | NUR ---
Quin, at [facility], contacted this SW. Quin reports that they are providing home health services to the patient for mcfp/PT/OT and are able to resume them upon discharge. KELECHI faxed updates to Quin at [facility]. PT is recommending SNF. KELECHI met with the patient to discuss their recommendation. The patient reports that she needs to talk to her , but she may be interested in SNF and would only prefer [facility]. She has been to [facility] in the past and really liked it. KELECHI informed her of the other two local facilities. The patient reports that she has been to [facility] in the past as well, but will not go back there, due to a bad experience. She was open for KELECHI to send a referral to [facility]. The patient informed KELECHI that Dr. Loera has been talking to her about starting dialysis. She states that she is still considering this, but may be on dialysis when he leaves here. KELECHI contacted and faxed a referral to Paul at [facility]. Paul reports that they have declined the patient. KELECHI to update the patient and discuss other post-acute rehab options.
[2020-12-05 15:25] VITALS: BP 116/32; PULSE 67; TEMP 97.6
[2020-12-05 20:00] VITALS: BP 144/40; PULSE 63; TEMP 97.5
--- NOTE | 2020-12-05 20:00 | NUR ---
Assessment complete. Patient is drowsy but answers all orientation questions correctly; she is forgetful at times but not confused. Generalized edema is noted on all extremities. No signs of increased work of breathing are noticed; patient denies pain. Pastor is draining small amounts of dark red urine; Physician aware and recs continue monitoring. Comfort measures provided and call light in reach.
[2020-12-05 22:46] VITALS: BP 152/43; PULSE 59; TEMP 97.5
--- NOTE | 2020-12-06 05:26 | NUR ---
Patient has been incontinent of a loose stool at this time. Magaly care and linen change provided. Magaly area is red and raw; coccyx mepilex changed. Hebert red urine is still draining from catheter.
[2020-12-06 05:39] VITALS: BP 125/45; PULSE 64; TEMP 98.8
[2020-12-06 07:20] VITALS: BP 129/36; PULSE 61; TEMP 97.8
[2020-12-06 08:02] LABS: MEAN CELL VOLUME 96 fl (80.0-100.0); MEAN CORPUSCULAR HGB CONC 32 g/dl (33.0-37.0); MEAN PLATELET VOLUME 9.2 fl (7.4-10.4); PLATELET COUNT 179 K/mm3 (130-400); RED BLOOD COUNT 2.49 M/mm3 (4.10-5.30); REDCELL DISTRIBUTION WIDTH-CV 20.5 % (11.5-14.5)
[2020-12-06 08:07] LABS: HEMOGLOBIN 7.6 g/dl (12.5-16.0); MEAN CORPUSCULAR HEMOGLOBIN 31 pg (27.0-31.0)
[2020-12-06 08:13] LABS: INR 1.6 (0.8-3.0); PROTHROMBIN TIME 17.9 SECONDS (9.7-12.8)
[2020-12-06 08:17] LABS: CALCIUM 7.5 mg/dL (8.4-10.2); CREATININE, serum 4.37 mg/dL (0.57-1.11); POTASSIUM 3.5 mmol/L (3.5-4.5)
[2020-12-06 08:29] LABS: ANISOCYTOSIS 2+; BAND 1 % (0-10); EOSINOPHIL 3 % (0-4); LYMPHOCYTE 23 % (20.0-51.0); NEUTROPHILS 69 % (42.0-75.2); PLATELET ESTIMATE NORMAL (NORMAL)
--- NOTE | 2020-12-06 09:52 | NUR ---
PT RESTING IN BED, REFUSING MOST OF HER BREAKFAST BECAUSE SHE DOES NOT LIKE THE PUREED DIET. MORNING MEDICATIONS GIVEN. SHIFT ASSESSMENT COMPLETED. PICC LINE FLUSHES AND HAS BLOOD RETURN. DENIES ANY PAIN. WILL CONTINUE TO MONITOR.
[2020-12-06 11:00] VITALS: BP 124/64; PULSE 57; TEMP 98.1
--- NOTE | 2020-12-06 15:55 | NUR ---
KELECHI consulted IPR Director, Nikki. Nikki declined the patient. The patient is not going to be intiated on dialysis at this time. KELECHI met with the patient and her , Molina, to update on [facility]'s denial and discuss other post-acute rehab options. The patient and Molina are agreeable with pursuing SNF. The patient and Molina refuse [facility]. They are open for KELECHI to send referrals to [facility] and [facility]. Molina reports that he could provide transportation to [facility]. KELECHI contacted Nichole at [facility] and gave her the referral. KELECHI contacted and faxed a referral to Meena at [facility]. Awaiting screens.
[2020-12-06 16:00] VITALS: BP 151/38; PULSE 59; TEMP 97.9
[2020-12-06 20:33] VITALS: BP 143/78; PULSE 82; TEMP 98.1
[2020-12-07 00:53] VITALS: BP 132/45; PULSE 70; TEMP 98.1
[2020-12-07 04:20] VITALS: BP 138/46; PULSE 76; TEMP 98.9
[2020-12-07 06:24] LABS: MEAN CELL VOLUME 98 fl (80.0-100.0); MEAN CORPUSCULAR HGB CONC 32 g/dl (33.0-37.0); MEAN PLATELET VOLUME 9.3 fl (7.4-10.4); PLATELET COUNT 191 K/mm3 (130-400); REDCELL DISTRIBUTION WIDTH-CV 20.6 % (11.5-14.5)
[2020-12-07 06:27] LABS: HEMATOCRIT 24.6 % (37.0-47.0); HEMOGLOBIN 7.9 g/dl (12.5-16.0); MEAN CORPUSCULAR HEMOGLOBIN 32 pg (27.0-31.0)
[2020-12-07 06:45] LABS: CALCIUM 7.7 mg/dL (8.4-10.2); CREATININE, serum 3.71 mg/dL (0.57-1.11); POTASSIUM 3.9 mmol/L (3.5-4.5)
[2020-12-07 07:05] VITALS: BP 115/53; PULSE 70; TEMP 97.7
--- NOTE | 2020-12-07 10:16 | NUR ---
PT UP TO THE RECLINER. MORNING MEDICATIONS GIVEN. SHIFT ASSESSMENT COMPLETED. AFTER MOVING PT TO RECLINER SHE STARTED TO COMPLAIN OF SOME NAUSEA. PT ALSO REPORTS THAT HER BOTTOM FEELS RAW AND UNCOMFORTABLE, BARRIER CREAM APPLIED TO THE AREA. WILL CONTINUE TO MONITOR.
[2020-12-07 11:00] VITALS: BP 115/54; PULSE 65; TEMP 97.7
[2020-12-07] MEDS ORDERED: LEVSIN0.125 M1 PO (11:26)
[2020-12-07] MEDS ORDERED: ASPIRIN E.C. 8181 MG PO (11:27)
[2020-12-07] MEDS ORDERED: LIPITOR 80MG80 MG PO (11:27)
[2020-12-07] MEDS ORDERED: TYLENOL 325MG325 MG PO (11:27)
[2020-12-07] MEDS ORDERED: NEURONTIN100 MG/CAP PO (11:27)
[2020-12-07] MEDS ORDERED: DESYREL 50MG50 MG PO (11:28)
[2020-12-07] MEDS ORDERED: CYMBALTA 30MG30 MG PO (11:28)
[2020-12-07] MEDS ORDERED: DEMADEX 20MG20 M1 PO (11:29)
[2020-12-07] MEDS ORDERED: K-DUR 10 MEQ T10 MEQ PO (11:29)
[2020-12-07] MEDS ORDERED: ZAROXOLYN 2.52.5 MG PO (11:29)
[2020-12-07] MEDS ORDERED: ZOFRAN 4MG T4 MG/TAB PO (11:30)
[2020-12-07] MEDS ORDERED: COLACE 100100 MG/CAP PO (11:30)
[2020-12-07] MEDS ORDERED: LEVEMIR100 U/ML SQ (11:31)
[2020-12-07] MEDS ORDERED: NOVOLOG 100U100 U/M1 SQ (11:34)
[2020-12-07] MEDS ORDERED: MELATONIN5 M1 SL (11:35)
[2020-12-07] MEDS ORDERED: SYNTHROID0.125 MG/T PO (11:35)
[2020-12-07] MEDS ORDERED: CYANOCOBAL1000 MCG/M IM (11:35)
--- NOTE | 2020-12-07 13:12 | NUR ---
KELECHI contacted Nichole, at [facility], to follow up referral. Nichole reports that their provider was not feeling comfortable taking the patient today. She was going to give their provider updates from today. Meena, at [facility], reports that they are able to accept the patient for a skilled stay. KELECHI met with the patient and her and updated them on [facility]'s acceptance. The patient and her are in agreement with going to [facility]. KELECHI updated the PA. KELECHI presented and read the IM form outloud to the patient and her , Molina. Molina verbalized understanding and gave SW approval to sign the form on his behalf. KELECHI provided him with a copy. The patient is to discharge today, 12/07, to [facility] for a skilled stay. Transportation was scheduled at 1300, via [employer]. KELECHI informed the patient, , and RN of the time. They were all agreeable to the time. No additional needs at this time.
== END 2020-12-07 14:00 | DRG 871 ==
LOC: COL.ER 02:42 → MEDICAL 03:49 → ICU 03:49 → MEDICAL 12-04 20:30
PROVIDERS: Internal Medicine Pulmonary Disease; Physician Assistant; Student in an Organized Health Care Education/Training Program; ADMIT Internal Medicine
PROC: 02HV33Z Insertion of Infusion Device into Superior Vena Cava, Percutaneous Approach (ICD-10-PCS; principal; 2020-12-02)
DX: A41.9 Sepsis, unspecified organism (principal); E11.00 Type 2 diabetes mellitus with hyperosmolarity without nonketotic hyperglycemic-hyperosmolar coma (NKHHC); E11.10 Type 2 diabetes mellitus with ketoacidosis without coma; I21.4 Non-ST elevation (NSTEMI) myocardial infarction; N18.4 Chronic kidney disease, stage 4 (severe); I13.0 Hypertensive heart and chronic kidney disease with heart failure and stage 1 through stage 4 chronic kidney disease, or unspecified chronic kidney disease; E87.2 Acidosis; N39.0 Urinary tract infection, site not specified; I50.22 Chronic systolic (congestive) heart failure; N17.9 Acute kidney failure, unspecified; Z20.822 Contact with and (suspected) exposure to COVID-19; I25.10 Atherosclerotic heart disease of native coronary artery without angina pectoris; I25.5 Ischemic cardiomyopathy; E11.51 Type 2 diabetes mellitus with diabetic peripheral angiopathy without gangrene; E03.9 Hypothyroidism, unspecified; M51.36 Other intervertebral disc degeneration, lumbar region; N20.0 Calculus of kidney; E11.22 Type 2 diabetes mellitus with diabetic chronic kidney disease; E11.42 Type 2 diabetes mellitus with diabetic polyneuropathy; I08.1 Rheumatic disorders of both mitral and tricuspid valves; I48.0 Paroxysmal atrial fibrillation; I44.0 Atrioventricular block, first degree; I25.2 Old myocardial infarction; M79.7 Fibromyalgia; F32.9 Major depressive disorder, single episode, unspecified; F41.9 Anxiety disorder, unspecified; N32.89 Other specified disorders of bladder; R31.9 Hematuria, unspecified; D51.9 Vitamin B12 deficiency anemia, unspecified; R13.10 Dysphagia, unspecified; G89.29 Other chronic pain; R53.81 Other malaise; E78.5 Hyperlipidemia, unspecified; Z79.01 Long term (current) use of anticoagulants; Z79.82 Long term (current) use of aspirin; Z79.4 Long term (current) use of insulin; Z95.5 Presence of coronary angioplasty implant and graft; Z87.891 Personal history of nicotine dependence; Z88.2 Allergy status to sulfonamides; Z88.1 Allergy status to other antibiotic agents
CPT/HCPCS: 99223-AI; 99233-AI; 99239; C1751; C1769; C1894; C2617; J0690; J1100; J1815; J1940; J2270; J2405; J2543; J2704; J3010; J3420; J7030; J7042; Q9967

== ENCOUNTER → 2020-12-14 | Outpatient (CLI) | payer MEDICARE, BC, MEDICAID ==
[~2020-12-14] MED LIST changes: +ALDACTONE 25MG25 M1 PO; +CORDARONE200 MG/TAB PO; +CYANOCOBAL1000 MCG/M IM; +LEVEMIR FLEX100 U/ML SQ; +LEVEMIR100 U/ML SQ; +LEVSIN0.125 M1 PO; +MAG-OX 400400 MG/TAB PO; +NEURONTIN300 MG/CAP PO; +NOVOLOG 100U100 U/M1 SQ; +PROTONIX 40MG T40 MG PO; +REGLAN 5MG T5 MG/TAB PO
[2020-12-14 10:26] LABS: COLLECTION METHOD CATHETER
[2020-12-14 10:31] LABS: MEAN CELL VOLUME 101 fl (80.0-100.0); MEAN CORPUSCULAR HGB CONC 30 g/dl (33.0-37.0); MEAN PLATELET VOLUME 10.4 fl (7.4-10.4); PLATELET COUNT 174 K/mm3 (130-400); RED BLOOD COUNT 2.13 M/mm3 (4.10-5.30); REDCELL DISTRIBUTION WIDTH-CV 20.4 % (11.5-14.5)
[2020-12-14 10:38] LABS: HEMATOCRIT 21.5 % (37.0-47.0); HEMOGLOBIN 6.4 g/dl (12.5-16.0); MEAN CORPUSCULAR HEMOGLOBIN 30 pg (27.0-31.0)
[2020-12-14 10:49] LABS: BUDDING YEAST Present /hpf; MUCOUS Present /lpf; PH 5 (5-8); SQUAMOUS EPITHELIAL None Seen /hpf; URINE APPEARANCE Turbid; URINE BACTERIA Rare /hpf; URINE BILIRUBIN Negative (NEGATIVE); URINE BLOOD 2+ (NEGATIVE); URINE COLOR Amber; URINE GLUCOSE Negative (NEGATIVE); URINE KETONE Negative (NEGATIVE); URINE LEUKOCYTE ESTERASE 3+ (NEGATIVE); URINE NITRATE Negative (NEGATIVE); URINE PROTEIN(semi-quant) 2+ (NEGATIVE); URINE RBC >50 /hpf; URINE UROBILINOGEN Negative (NEGATIVE); URINE WBC >50 /hpf
[2020-12-14 11:13] LABS: LYMPHOCYTE 22 % (20.0-51.0); MYELOCYTE 1 % (0-0); NEUTROPHILS 71 % (42.0-75.2)
[2020-12-14 11:14] LABS: ANISOCYTOSIS 1+; HYPOCHROMIA 2+; PLATELET ESTIMATE NORMAL (NORMAL)
== END ==
LOC: ZCOL.LAB 09:37
PROVIDERS: Family Medicine
DX: E11.51 Type 2 diabetes mellitus with diabetic peripheral angiopathy without gangrene (principal); E03.9 Hypothyroidism, unspecified; N20.0 Calculus of kidney; E87.6 Hypokalemia; N18.4 Chronic kidney disease, stage 4 (severe); R71.0 Precipitous drop in hematocrit; Z79.899 Other long term (current) drug therapy

== ENCOUNTER → 2020-12-14 | Outpatient (CLI) | payer MEDICARE, BC, MEDICAID ==
[2020-12-14 17:47] LABS: HEMATOCRIT 26.2 % (37.0-47.0)
== END ==
LOC: ZCOL.LAB 17:05
PROVIDERS: Internal Medicine Nephrology
DX: R71.0 Precipitous drop in hematocrit (principal)

== ENCOUNTER → 2020-12-22 | Outpatient (CLI) | payer MEDICARE, BC, MEDICAID | LOC: ZCOL.LAB 09:12 | DX: N18.4 Chronic kidney disease, stage 4 (severe) (principal) ==

== ENCOUNTER 2020-12-25 22:36 | Emergency (ER) | payer MEDICARE, BC, MEDICAID ==
[~2020-12-25] VITALS: Wt 105.5 kg
[~2020-12-25 22:36] MED LIST changes: -ALDACTONE 25MG25 M1 PO; -CORDARONE200 MG/TAB PO; -LEVEMIR FLEX100 U/ML SQ; -MAG-OX 400400 MG/TAB PO; -NEURONTIN300 MG/CAP PO; -PROTONIX 40MG T40 MG PO; -REGLAN 5MG T5 MG/TAB PO
[2020-12-25 22:37] VITALS: BP 99/73; PULSE 60; TEMP 98.5
[2020-12-25 23:22] LABS: BASO # 0.1 K/mm3 (0.0-0.2); BASO % 0.5 % (0.0-2.0); EOS # 0.2 K/mm3 (0.0-0.7); EOS % 1.4 % (0-4.0); GRAN # 6.4 K/mm3 (1.4-6.5); GRAN % 58.1 % (42.2-75.2); LYMPH # 3.3 K/mm3 (1.2-3.4); LYMPH % 30.3 % (20.0-51.0); MEAN CELL VOLUME 94 fl (80.0-100.0); MEAN CORPUSCULAR HGB CONC 31 g/dl (33.0-37.0); MEAN PLATELET VOLUME 8.9 fl (7.4-10.4); PLATELET COUNT 401 K/mm3 (130-400); RED BLOOD COUNT 2.81 M/mm3 (4.10-5.30); REDCELL DISTRIBUTION WIDTH-CV 18.6 % (11.5-14.5)
[2020-12-25 23:24] LABS: HEMATOCRIT 26.5 % (37.0-47.0); HEMOGLOBIN 8.2 g/dl (12.5-16.0); MEAN CORPUSCULAR HEMOGLOBIN 29 pg (27.0-31.0)
[2020-12-25 23:35] LABS: INR 1.1 (0.8-3.0); PROTHROMBIN TIME 12.5 SECONDS (9.7-12.8)
== END 2020-12-26 01:15 | disposition home or self-care (01) ==
LOC: COL.ER 22:36
PROVIDERS: Emergency Medicine
DX: S09.90XA Unspecified injury of head, initial encounter (principal); I48.91 Unspecified atrial fibrillation; I25.10 Atherosclerotic heart disease of native coronary artery without angina pectoris; E78.5 Hyperlipidemia, unspecified; I12.9 Hypertensive chronic kidney disease with stage 1 through stage 4 chronic kidney disease, or unspecified chronic kidney disease; E11.22 Type 2 diabetes mellitus with diabetic chronic kidney disease; N18.4 Chronic kidney disease, stage 4 (severe); Z79.4 Long term (current) use of insulin; Z79.899 Other long term (current) drug therapy; Z79.82 Long term (current) use of aspirin; I25.2 Old myocardial infarction; W19.XXXA Unspecified fall, initial encounter; Y92.129 Unspecified place in nursing home as the place of occurrence of the external cause

== ENCOUNTER 2021-01-18 15:14 | Inpatient (IN) | payer MEDICARE, BC, MEDICAID ==
[~2021-01-18] VITALS: Ht 157.5 cm; Wt 126.3 kg
[2021-01-18 16:20] LABS: MEAN CELL VOLUME 87 fl (80.0-100.0); MEAN CORPUSCULAR HGB CONC 32 g/dl (33.0-37.0); MEAN PLATELET VOLUME 9.4 fl (7.4-10.4); PLATELET COUNT 262 K/mm3 (130-400); RED BLOOD COUNT 3.04 M/mm3 (4.10-5.30); REDCELL DISTRIBUTION WIDTH-CV 19.8 % (11.5-14.5)
[2021-01-18 16:23] LABS: HEMATOCRIT 26.3 % (37.0-47.0); HEMOGLOBIN 8.3 g/dl (12.5-16.0); MEAN CORPUSCULAR HEMOGLOBIN 27 pg (27.0-31.0)
[2021-01-18 16:38] LABS: ALBUMIN 2.1 gm/dL (3.4-4.8); BILIRUBIN,TOTAL 1.5 mg/dL (0.2-1.2); C-REACTIVE PROTEIN 21.91 mg/dL (0.00-0.50); CALCIUM 7.7 mg/dL (8.4-10.2); CREATININE, serum 5.33 mg/dL (0.57-1.11); POTASSIUM 5.3 mmol/L (3.5-4.5); TOTAL PROTEIN 6.2 gm/dL (6.2-8.1)
[2021-01-18 17:03] LABS: ANISOCYTOSIS 2+; BAND 7 % (0-10); LYMPHOCYTE 2 % (20.0-51.0); NEUTROPHILS 90 % (42.0-75.2); OVALOCYTES 1+; PLATELET ESTIMATE NORMAL (NORMAL); POLYCHROMASIA 1+
[2021-01-18 19:26] LABS: INR 1.1 (0.8-3.0); PROTHROMBIN TIME 12.6 SECONDS (9.7-12.8)
[2021-01-18 21:00] LABS: MAGNESIUM 1.6 mg/dL (1.6-2.6); PHOSPHOROUS 5.4 mg/dL (2.3-4.7)
[2021-01-18 21:31] LABS: CALCIUM 7.6 mg/dL (8.4-10.2); CREATININE, serum 5.08 mg/dL (0.57-1.11); POTASSIUM 4.2 mmol/L (3.5-4.5)
[2021-01-18 21:39] LABS: TROPONIN-I 6 HR POST INITIAL 0.024 ng/mL (0.00-0.033)
[2021-01-18 22:55] LABS: HEMATOCRIT 23.6 % (37.0-47.0); HEMOGLOBIN 7.6 g/dl (12.5-16.0)
[2021-01-19 00:40] LABS: CALCIUM 8.1 mg/dL (8.4-10.2); CREATININE, serum 4.95 mg/dL (0.57-1.11); POTASSIUM 3.8 mmol/L (3.5-4.5)
[2021-01-19 03:44] LABS: MEAN CORPUSCULAR HGB CONC 30 g/dl (33.0-37.0); PLATELET COUNT 286 K/mm3 (130-400); RED BLOOD COUNT 2.57 M/mm3 (4.10-5.30); REDCELL DISTRIBUTION WIDTH-CV 19.4 % (11.5-14.5)
[2021-01-19 03:48] LABS: HEMATOCRIT 23.7 % (37.0-47.0); HEMOGLOBIN 7.2 g/dl (12.5-16.0); MEAN CELL VOLUME 92 fl (80.0-100.0); MEAN CORPUSCULAR HEMOGLOBIN 28 pg (27.0-31.0)
[2021-01-19 04:01] LABS: ALBUMIN 1.8 gm/dL (3.4-4.8); BILIRUBIN,TOTAL 0.9 mg/dL (0.2-1.2); CALCIUM 7.6 mg/dL (8.4-10.2); CREATININE, serum 4.49 mg/dL (0.57-1.11); POTASSIUM 3.4 mmol/L (3.5-4.5); TOTAL PROTEIN 5.4 gm/dL (6.2-8.1)
[2021-01-19 04:28] LABS: BAND 16 % (0-10); BASOPHIL 1 % (0-2); HYPOCHROMIA 3+; LYMPHOCYTE 6 % (20.0-51.0); METAMYELOCYTE 1 % (0-0); NEUTROPHILS 75 % (42.0-75.2)
[2021-01-19 04:29] LABS: ANISOCYTOSIS 2+; PLATELET ESTIMATE NORMAL (NORMAL); SCHISTOCYTES 1+
[2021-01-19 04:33] LABS: COLLECTION METHOD CLEAN CATCH
[2021-01-19] MEDS ORDERED: NEURONTIN300 MG/CAP PO (04:39)
[2021-01-19] MEDS ORDERED: LEVEMIR FLEX100 U/ML SQ (04:42)
[2021-01-19] MEDS ORDERED: COLACE 100100 MG/CAP PO (04:42)
[2021-01-19] MEDS ORDERED: ALDACTONE 25MG25 M1 PO (04:42)
[2021-01-19] MEDS ORDERED: ZAROXOLYN 2.52.5 MG PO (04:43)
[2021-01-19] MEDS ORDERED: MELATONIN5 M1 SL (04:43)
[2021-01-19] MEDS ORDERED: DESYREL 50MG50 MG PO (04:44)
[2021-01-19] MEDS ORDERED: ULTRAM 50MG TAB50 MG PO (04:44)
[2021-01-19] MEDS ORDERED: ZOFRAN 4MG T4 MG/TAB PO (04:44)
[2021-01-19] MEDS ORDERED: DEMADEX 20MG20 M1 PO (04:44)
[2021-01-19 05:16] LABS: BUDDING YEAST Present (NOT PRESENT); PH 7 (5-8); SQUAMOUS EPITHELIAL None Seen /hpf (0-10); URINE APPEARANCE Cloudy (CLEAR/HAZY); URINE BACTERIA None Seen (NONE SEEN); URINE BILIRUBIN Negative (NEGATIVE); URINE BLOOD 1+ (NEGATIVE); URINE COLOR Yellow (YELLOW); URINE GLUCOSE 2+ (NEGATIVE); URINE KETONE Negative (NEGATIVE); URINE LEUKOCYTE ESTERASE 3+ (NEGATIVE); URINE NITRATE Negative (NEGATIVE); URINE PROTEIN(semi-quant) 1+ (NEGATIVE); URINE RBC 20-50 /hpf (0-2); URINE UROBILINOGEN Negative (NEGATIVE)
[2021-01-19 05:19] VITALS: BP 100/38; PULSE 64; TEMP 97.9
[2021-01-19 05:52] LABS: CALCIUM 7.7 mg/dL (8.4-10.2); CREATININE, serum 4.4 mg/dL (0.57-1.11); POTASSIUM 3.7 mmol/L (3.5-4.5)
[2021-01-19 08:32] LABS: CALCIUM 8.2 mg/dL (8.4-10.2); CREATININE, serum 4.57 mg/dL (0.57-1.11); POTASSIUM 4.2 mmol/L (3.5-4.5)
--- NOTE | 2021-01-19 11:43 | NUR ---
Staff Occupational Therapist attempted to contact patient's three times with no sucess. Patient's , Molina's voicemail box is full so SW was unable to leave a message. KELECHI contacted KELECHI Gonzalez at Dr. Watson's office who advised their office was not aware that patient had discharged back home from [facility]. KELECHI contacted Meena at [facility] and left a message. KELECHI was contacted by Jese at [facility] who advised they have patient on Home Health services and were about to switch patient to Hospice services at home, however patient's Molina convinced patient to go to the hospital. Jese advised patient had stated she wanted to at home and had a qualifying diagnosis for hospice. KELECHI collaborated with Hospitalist about this information and palliative consult was ordered. KELECHI contacted [facility] and provided the above information.
[2021-01-19 12:22] LABS: CALCIUM 7.8 mg/dL (8.4-10.2); CREATININE, serum 4.42 mg/dL (0.57-1.11); POTASSIUM 3.9 mmol/L (3.5-4.5)
[2021-01-19 12:44] LABS: TSH w REFLEX 3.107 uIU/mL (0.350-4.940)
[2021-01-19 14:35] LABS: CALCIUM 7.7 mg/dL (8.4-10.2); CREATININE, serum 4.42 mg/dL (0.57-1.11); POTASSIUM 3.8 mmol/L (3.5-4.5)
--- NOTE | 2021-01-19 14:50 | NUR ---
Puja Sanabria RN and Trinity Perez RN called the patient's , Molina. A phone number was found in the advanced directives that did connect to him ([phone]). During the discussion the patient's expressed that he is unable to care for the patient at home but is unable to tell her "no" when she askes to come home. He also stated that [facility] would be willing to take her back. KELECHI has been involved and will follow up with facility options. When asked about aggressive care, the stated that he is DPOA, the patient is a DNR, but that care is up to her and ultimately it will be what she wants.
[2021-01-19 17:00] VITALS: BP 113/40; PULSE 61; TEMP 98.1
[2021-01-19 18:17] LABS: CALCIUM 7.9 mg/dL (8.4-10.2); CREATININE, serum 4.27 mg/dL (0.57-1.11); POTASSIUM 3.8 mmol/L (3.5-4.5)
[2021-01-19 19:56] LABS: HEMATOCRIT 25.4 % (37.0-47.0); HEMOGLOBIN 8.3 g/dl (12.5-16.0)
[2021-01-19 20:00] VITALS: BP 122/36; PULSE 59; TEMP 97.4
--- NOTE | 2021-01-19 20:00 | NUR ---
PT DROWSY. WAKES UP TO TOUCH. CONFUSED X3. NO RESP DISTRESS. CALL LIGHT IN REACH. BED ALARM SET.
[2021-01-19 22:44] VITALS: BP 122/36; PULSE 59; TEMP 97.4
[2021-01-19 23:41] VITALS: BP 117/54; PULSE 67; TEMP 98
--- NOTE | 2021-01-20 00:36 | NUR ---
ACCUCHECK 71 AT MIDNIGHT. APPLESAUCE AND JUICE GIVEN.
--- NOTE | 2021-01-20 01:30 | NUR ---
PT HAS HAD X2 INCONT BROWNISH WITH SL PINK IN STOOL MEDIUM AMTS. PT HAS STAGE 2 X2 INNER BUTTOCK WOUNDS. SACRAL DRSG APPLIED.
--- NOTE | 2021-01-20 02:02 | NUR ---
INT placed to right [id number] attempts by this nurse. Flushes well without signs of infiltration. Tolerated well.
[2021-01-20 06:21] VITALS: BP 111/38; PULSE 73; TEMP 98.3
[2021-01-20 06:25] VITALS: BP 111/34; PULSE 70; TEMP 98.3
[2021-01-20 07:31] LABS: MEAN CELL VOLUME 92 fl (80.0-100.0); MEAN CORPUSCULAR HGB CONC 31 g/dl (33.0-37.0); PLATELET COUNT 260 K/mm3 (130-400); RED BLOOD COUNT 2.82 M/mm3 (4.10-5.30); REDCELL DISTRIBUTION WIDTH-CV 18.3 % (11.5-14.5)
[2021-01-20 07:36] LABS: HEMATOCRIT 25.8 % (37.0-47.0); MEAN CORPUSCULAR HEMOGLOBIN 28 pg (27.0-31.0)
[2021-01-20 07:40] LABS: ALBUMIN 1.8 gm/dL (3.4-4.8); BILIRUBIN,TOTAL 0.7 mg/dL (0.2-1.2); CALCIUM 7.7 mg/dL (8.4-10.2); CREATININE, serum 4.19 mg/dL (0.57-1.11); POTASSIUM 3.7 mmol/L (3.5-4.5); TOTAL PROTEIN 5.5 gm/dL (6.2-8.1)
[2021-01-20 07:46] VITALS: BP 142/41; PULSE 67; TEMP 97.9
[2021-01-20 08:36] LABS: ANISOCYTOSIS 2+; BAND 2 % (0-10); BASOPHIL 1 % (0-2); HYPOCHROMIA 2+; LYMPHOCYTE 13 % (20.0-51.0); NEUTROPHILS 82 % (42.0-75.2); PLATELET ESTIMATE NORMAL (NORMAL)
--- NOTE | 2021-01-20 11:00 | NUR ---
Assessment completed, alert/oriented but is forgetful and gets disoriented at times, she denies pain this morning, vital signs stable, heart irregular/ a.fib on tele with rate control/ occassionally gets tachy, I have discussed patient with and confirmed he was aware of consultation, distal pulses are palpable, patient has 2-3+ edema to BLE, we have not observed any further bloody stools, hemaglobin stable >8 s/p blood transfusion in the ER, GI consulte and notified, i was called and reported from lab that her blood cultures came have came back positive, arrington patent/ urine is more clear today, patient states "her legs dont work", she was recently in Inpatient rehab and i am not sure of her baseline mobility , family present in the room, will continue to monitor
[2021-01-20 11:49] VITALS: BP 136/79; PULSE 65; TEMP 98.6
--- NOTE | 2021-01-20 13:20 | NUR ---
The patient's RN notified KELECHI that the patient is wanting to speak to SW. KELECHI met with the patient and her , Molina. The patient had some questions about a letter she received about her Medicaid. SW answered the patient's questions. KELECHI then addressed goals of care: The patient reports that she is not ready for hospice care and wants continue treatment. KELECHI informed the patient and Molina that if they are looking at continuing treatment, SNF will likely be recommended upon discharge. The patient and Molina verbalized understanding and are agreeable to this. The patient and Molina report that they are interested in transitioning to LTC after SNF. Molina reports that [facility] informed them that they would accept the patient back. They would prefer [facility] and do not have a second preference at this time. KELECHI contacted and faxed a referral to Meena at [facility]. Awaiting screen. *Discharge plan: SNF*
[2021-01-20 16:24] VITALS: BP 138/46; PULSE 80; TEMP 97.5
[2021-01-20 20:48] VITALS: BP 141/43; PULSE 58; TEMP 98
[2021-01-21] VITALS (8 sets, daily range): BP systolic 114–169; BP diastolic 37–54; PULSE 57–72; TEMP 97.5–98.3
[2021-01-21 06:16] LABS: MEAN CELL VOLUME 90 fl (80.0-100.0); MEAN CORPUSCULAR HGB CONC 31 g/dl (33.0-37.0); MEAN PLATELET VOLUME 8.8 fl (7.4-10.4); PLATELET COUNT 260 K/mm3 (130-400); RED BLOOD COUNT 2.87 M/mm3 (4.10-5.30); REDCELL DISTRIBUTION WIDTH-CV 18.3 % (11.5-14.5)
[2021-01-21 06:26] LABS: HEMATOCRIT 25.8 % (37.0-47.0); MEAN CORPUSCULAR HEMOGLOBIN 28 pg (27.0-31.0)
[2021-01-21 06:50] LABS: ALBUMIN 1.8 gm/dL (3.4-4.8); BILIRUBIN,TOTAL 0.8 mg/dL (0.2-1.2); CALCIUM 7.4 mg/dL (8.4-10.2); CREATININE, serum 3.33 mg/dL (0.57-1.11); POTASSIUM 3.6 mmol/L (3.5-4.5); TOTAL PROTEIN 5.1 gm/dL (6.2-8.1)
--- NOTE | 2021-01-21 07:18 | NUR ---
THIS RN ENDED BLOOD TRANSFUSION THAT HAD BEEN GIVEN IN EMERGENCY ROOM WHEN PT FIRST ARRIVED TO THE HOSPITAL. IT HAD NOT BEEN STOPPED FOR ALMOST 50 HOURS. PT IS NOT HOOKED UP TO ANY BLOOD, OR BLOOD PRODUCTS AT THIS TIME.
[2021-01-21 08:33] LABS: EOSINOPHIL 2 % (0-4); LYMPHOCYTE 20 % (20.0-51.0); NEUTROPHILS 75 % (42.0-75.2)
[2021-01-21 08:34] LABS: ANISOCYTOSIS 2+; HYPOCHROMIA 2+; PLATELET ESTIMATE NORMAL (NORMAL)
--- NOTE | 2021-01-21 11:13 | NUR ---
PT RESTING IN BED. SHIFT ASSESSMENT COMPLETED. PT DENIES ANY NEEDS OR PAIN THIS MORNING. WILL CONTINUE TO MONITOR.
--- NOTE | 2021-01-21 12:36 | NUR ---
Vancomycin Follow-up Pharmacy Note Current regimen: Dosing based on levels Vancomycin random level: 15.21 (random level ~15 hrs after 1st dose) Adjustments: Continue with Vancomycin 1 gm IV q48h. Pharmacy will continue to closely monitor and adjust the dose based on changes in renal function and Vancomycin levels.
--- NOTE | 2021-01-21 12:59 | NUR ---
Fundraising Consultant visited with patient but nothing else needed at this time.
--- NOTE | 2021-01-21 18:36 | NUR ---
PT HAD MULTIPLE EPISODES OF DIARRHEA TODAY, NO BLOOD NOTED. STAGE 2 PRESSURE ULCERS TO BOTTOM HAVE DRESSING IN PLACE. PT REPORTS CONSTANT PAIN ON HER BOTTOM. TURNED PT Q2HR.
[2021-01-22 05:20] VITALS: BP 128/35; PULSE 54; TEMP 98.5
[2021-01-22 06:45] LABS: MEAN CELL VOLUME 93 fl (80.0-100.0); MEAN CORPUSCULAR HGB CONC 30 g/dl (33.0-37.0); MEAN PLATELET VOLUME 8.6 fl (7.4-10.4); PLATELET COUNT 224 K/mm3 (130-400); RED BLOOD COUNT 2.62 M/mm3 (4.10-5.30); REDCELL DISTRIBUTION WIDTH-CV 18.3 % (11.5-14.5)
--- NOTE | 2021-01-22 06:53 | NUR ---
pt slept well tonight, no loose stools, no c/o pain, turned q2 hrs, arrington patent/secure, low urine output, poor po intake. SS given x2, see MAR, BGM 99 this am. TRIJ patent/secure to right neck. mepilex to buttocks ulcers.
[2021-01-22 07:04] LABS: CALCIUM 7.9 mg/dL (8.4-10.2); CREATININE, serum 2.68 mg/dL (0.57-1.11); POTASSIUM 3.2 mmol/L (3.5-4.5)
[2021-01-22 07:36] LABS: HEMATOCRIT 24.3 % (37.0-47.0); HEMOGLOBIN 7.3 g/dl (12.5-16.0); MEAN CORPUSCULAR HEMOGLOBIN 28 pg (27.0-31.0)
[2021-01-22 08:00] VITALS: BP 148/41; PULSE 50; TEMP 97.9
[2021-01-22 10:00] LABS: BAND 1 % (0-10); LYMPHOCYTE 33 % (20.0-51.0); METAMYELOCYTE 3 % (0-0); NEUTROPHILS 62 % (42.0-75.2)
[2021-01-22 10:03] LABS: ANISOCYTOSIS 2+; HYPOCHROMIA 3+; PLATELET ESTIMATE NORMAL (NORMAL)
--- NOTE | 2021-01-22 10:42 | NUR ---
PT RESTING IN BED. MORNING MEDICATIONS GIVEN. SHIFT ASSESSMENT COMPLETED. PT DROWSY THIS MORNING. REPORTS MILD PAIN ON HER BOTTOM. WILL CONTINUE TO MONITOR.
--- NOTE | 2021-01-22 11:19 | NUR ---
PT HAD NAUSEA AND VOMITING THIS MORNING, PRN ZOFRAN GIVEN.
[2021-01-22 11:49] VITALS: BP 132/39; PULSE 53; TEMP 97.9
[2021-01-22 16:32] VITALS: BP 142/39; PULSE 65; TEMP 97.9
[2021-01-22 18:29] LABS: HEMATOCRIT 27.8 % (37.0-47.0); HEMOGLOBIN 8.6 g/dl (12.5-16.0)
[2021-01-22 21:34] VITALS: BP 154/53; PULSE 103; TEMP 97.8
[2021-01-23] VITALS (7 sets, daily range): BP systolic 123–157; BP diastolic 31–68; PULSE 50–80; TEMP 97.9–98.6
--- NOTE | 2021-01-23 07:15 | NUR ---
pt requested pain med x2 this shift for burning pain on buttocks, chris. order rec'd to start nystatin power to yeasty rash on groin. dayshift RN to contact wound care nurse for consult. pt having frequent diarrhea, mepilex changed x2 this shift. nausea reported x1, zofran given @HS and has requested for this am. turned side to side q2 to keep off of buttocks.
[2021-01-23 07:46] LABS: MEAN CELL VOLUME 92 fl (80.0-100.0); MEAN CORPUSCULAR HGB CONC 31 g/dl (33.0-37.0); MEAN PLATELET VOLUME 8.8 fl (7.4-10.4); PLATELET COUNT 285 K/mm3 (130-400); RED BLOOD COUNT 2.96 M/mm3 (4.10-5.30); REDCELL DISTRIBUTION WIDTH-CV 18.4 % (11.5-14.5)
[2021-01-23 07:55] LABS: HEMATOCRIT 27.1 % (37.0-47.0); HEMOGLOBIN 8.4 g/dl (12.5-16.0); MEAN CORPUSCULAR HEMOGLOBIN 28 pg (27.0-31.0)
[2021-01-23 08:00] LABS: CREATININE, serum 2.5 mg/dL (0.57-1.11); POTASSIUM 3.2 mmol/L (3.5-4.5)
[2021-01-23 09:26] LABS: BAND 3 % (0-10); BASOPHIL 1 % (0-2); EOSINOPHIL 1 % (0-4); LYMPHOCYTE 33 % (20.0-51.0); METAMYELOCYTE 5 % (0-0); MYELOCYTE 2 % (0-0); NEUTROPHILS 49 % (42.0-75.2)
[2021-01-23 09:27] LABS: ANISOCYTOSIS 2+; HYPOCHROMIA 3+; PLATELET ESTIMATE NORMAL (NORMAL)
[2021-01-23 09:29] LABS: OVALOCYTES 1+
[2021-01-23 09:42] LABS: PATHOLOGY DIFF REVIEW OK
--- NOTE | 2021-01-23 12:02 | NUR ---
PT NAUSEOUS THIS MORNING AND IS DRY HEAVING, PRN ZOFRAN GIVEN PER ORDERS. REPORTS PAIN TO HER BOTTOM 10/10, PRN PAIN MEDICATIONS GIVEN PER ORDERS. DENIES ANY OTHER NEEDS AT THIS TIME. HAVING DIARRHEA Q2H. OBTAINED STOOL SAMPLE AND IT IS NEGATIVE, WILL CONTACT TORO CARRASQUILLO FOR IMMODIUM ORDERS. WILL CONTINUE TO MONITOR.
--- NOTE | 2021-01-23 12:08 | NUR ---
Palliative Care Note Puja Sanabria RN and Trinity Perez RN met with the patient in her room. She complained of nausea but was able to converse with us. Naa stated that she wants to work with various therapies but right now, doesn't feel up to it. She also stated that she wants to go home and not to a facility. She wants to be able to celebrate her 's birthday and [place] at home. When hospice was brought up, the patient stated that her home health agency intiated that because she stated she just wanted to be left alone and "give up and " but she has since changed her mind. When her safety was brought up about going home, she stated her told her he can manage to help her and that if she can still have home health services, she would approve that. Patient became very short when therapy entered the room and we mentioned needing to make progress with therapy to qualify for services. Patient did agree to continue our conversation at a later time.
--- NOTE | 2021-01-23 13:09 | NUR ---
PT BELIEVES SHE IS ALLERIGIC TO A MEDICATIONS BECAUSE HER FACE AND SCALP FEEL DRY AND ITCHY. SHE ALSO DESCRIBES HER EYES BURNING AND THEY "FEEL LIKE LITTLE SLITS." REPORTS SHE'S FELT LIKE THIS FOR FEW DAYS. WILL PASS ALONG TO PROVIDER.
--- NOTE | 2021-01-23 16:22 | NUR ---
animal control licensing worker spoke with the patient about returning to [facility] for SNF. Patient is hesitant but is willing to go SNF post dc. Meena from [facility] contacted and faxed a referral. She has already spoken to the DON and accepts the patient once medically ready for dc. Discharge plan: [facility]
--- NOTE | 2021-01-23 20:29 | NUR ---
Patient is resting in bed, alert and oriented x 4, VSS, HTN. Reports constant nausea, zofran provided. Tele in place, NSR 60's. Pastor, red bloody output. Assessment completed, medications provided. No further needs at this time. Call light within reach.
[2021-01-24 04:19] VITALS: BP 151/64; PULSE 65; TEMP 98.4
--- NOTE | 2021-01-24 06:16 | NUR ---
Pt continue having episodes of nausea when awake. PRN zofran provided. She is receiving her antibiotics. Pastor continues getting intense red output. Shift report will be given to day RN.
[2021-01-24 06:33] LABS: MEAN CELL VOLUME 90 fl (80.0-100.0); MEAN CORPUSCULAR HGB CONC 32 g/dl (33.0-37.0); MEAN PLATELET VOLUME 8.6 fl (7.4-10.4); PLATELET COUNT 272 K/mm3 (130-400); REDCELL DISTRIBUTION WIDTH-CV 18.1 % (11.5-14.5)
[2021-01-24 06:42] LABS: HEMOGLOBIN 8.2 g/dl (12.5-16.0); MEAN CORPUSCULAR HEMOGLOBIN 28 pg (27.0-31.0)
[2021-01-24 06:43] LABS: CREATININE, serum 2.16 mg/dL (0.57-1.11); POTASSIUM 3.1 mmol/L (3.5-4.5)
--- NOTE | 2021-01-24 07:03 | NUR ---
Bedside shift report complete, report received from DENIA Peacock. Pt. resting in bed w/ eyes closed. IV abx infusing. Call light and belongings in reach.
[2021-01-24 07:40] VITALS: BP 161/55; PULSE 77; TEMP 98
--- NOTE | 2021-01-24 08:06 | NUR ---
Pt. progressing w/ plan of care. Pt.'s indwelling arrington cath has dark red blood present. Pt. had a BM with bright red blood. BOBY Guzman reports pt. had BMs yesterday but they were not bloody. TORO Hernandez notified, new orders obtained to hold blood thinners. TORO Hernandez reports this pt. will be a priority with rounding. TORO Hernandez reports ROUGH ROUNDER Chloe from Nephrology should be notified when she rounds today too.
[2021-01-24 08:12] LABS: BAND 5 % (0-10); EOSINOPHIL 3 % (0-4); LYMPHOCYTE 21 % (20.0-51.0); METAMYELOCYTE 9 % (0-0); MYELOCYTE 1 % (0-0); NUCLEATED RED BLOOD CELL 1 (0-6); OVALOCYTES 1+
[2021-01-24 08:13] LABS: PLATELET ESTIMATE NORMAL (NORMAL); TEAR DROP CELLS 1+
[2021-01-24 08:15] LABS: NEUTROPHILS 57 % (42.0-75.2)
[2021-01-24 12:09] VITALS: BP 150/47; PULSE 59; TEMP 97.8
--- NOTE | 2021-01-24 13:55 | NUR ---
KELECHI faxed updates to Meena at [facility].
[2021-01-24 16:00] VITALS: BP 129/31; PULSE 65; TEMP 98.5
[2021-01-24 17:21] VITALS: BP 165/62
--- NOTE | 2021-01-24 17:22 | NUR ---
Pt. tolerated mashed potatoes well and denies nausea. Automatic BP cuff reading inaccurately, manual BP charted in vital signs.
[2021-01-24 19:39] VITALS: BP 158/59; PULSE 79; TEMP 98.5
--- NOTE | 2021-01-24 20:25 | NUR ---
Patient is resting in bed, watching TV. alert and oriented x 4, Reports constant pain in her bottom and BLE with movement. PRN provided. Tele in place. NSR 60's. Cath arrington in place, red urine output. Assessment completed, medications provided. No further needs at this time. Call light within reach.
--- NOTE | 2021-01-24 23:00 | NUR ---
Patient calls to get dilaudid and be changed after BM accident. PRN and hygiene provided. Linens changed. BM was with blood. Skin irritation. Coxis foam protector applied. Dressing change for the central line was don by Monique LOZA since it was dirty of old drainage all around.
[2021-01-25] VITALS (11 sets, daily range): BP systolic 118–166; BP diastolic 32–71; PULSE 54–79; TEMP 98–98.6
--- NOTE | 2021-01-25 05:54 | NUR ---
Pt continues with diarrhea and blood in stool and urine. A couple of incontinent episodes along the night. Pt reports having pain in her bottom and N/V. PRN provided. Pt has been NPO. Recieving IV antibiotics. Report will be given to day RN.
--- NOTE | 2021-01-25 07:00 | NUR ---
Report received from DENIA Gaines. Pt in bed, consent signed with nightshift nurse. Will continue to monitor.
[2021-01-25 07:02] LABS: MEAN CELL VOLUME 90 fl (80.0-100.0); MEAN CORPUSCULAR HGB CONC 31 g/dl (33.0-37.0); MEAN PLATELET VOLUME 8.8 fl (7.4-10.4); PLATELET COUNT 289 K/mm3 (130-400); RED BLOOD COUNT 2.82 M/mm3 (4.10-5.30); REDCELL DISTRIBUTION WIDTH-CV 18.6 % (11.5-14.5)
[2021-01-25 07:15] LABS: HEMATOCRIT 25.4 % (37.0-47.0); HEMOGLOBIN 7.9 g/dl (12.5-16.0); MEAN CORPUSCULAR HEMOGLOBIN 28 pg (27.0-31.0)
[2021-01-25 07:26] LABS: CALCIUM 7.6 mg/dL (8.4-10.2); CREATININE, serum 2.18 mg/dL (0.57-1.11); POTASSIUM 3.1 mmol/L (3.5-4.5)
--- NOTE | 2021-01-25 08:04 | NUR ---
Assessment charted. Pt left floor at this time with Endo staff. Resting in bed, dry heaves, c/o nausea and generalized pain in sacral area where pressure ulcers are. BLE are 3+, RUE is 3+ edema. Pt has arrington draining dark urine with sediment. TLC RIJ with blood return and flush to all ports except white port has no blood return but flushes. Will await return.
[2021-01-25 08:31] LABS: ANISOCYTOSIS 1+; BAND 1 % (0-10); EOSINOPHIL 2 % (0-4); HYPOCHROMIA 2+; LYMPHOCYTE 24 % (20.0-51.0); METAMYELOCYTE 5 % (0-0); MYELOCYTE 2 % (0-0); NEUTROPHILS 62 % (42.0-75.2)
--- NOTE | 2021-01-25 14:16 | NUR ---
The patient had an EGD this morning. KELECHI faxed updates to Meena at [facility].
--- NOTE | 2021-01-25 18:10 | NUR ---
Pt has done well over shift. Bed alarm was not working earlier and pt able to stand and pivot to new bed well without much assistance. Pt has been incontinent of stool several times over shift. Resting in bed, turned q2hr for comfort. Denies needs. Nausea over shift but did not want to take anything for it. Will give bedside shift report to julianna suarez who will resume care.
--- NOTE | 2021-01-26 00:11 | NUR ---
Patient is resting in bed. Complains of pain in her right eye and generalized. Pt alert and oriented x 4, VSS. Continues with edema. Right arm is improving. Assessment completed. No further needs at this time. Call light within reach.
[2021-01-26 00:21] VITALS: BP 140/59; PULSE 55; TEMP 97.8
[2021-01-26 04:25] VITALS: BP 134/61; PULSE 94; TEMP 98
--- NOTE | 2021-01-26 06:31 | NUR ---
.Pt continues with incontinent BM, blood in it. Pt states constant discomfort and nausea. Refused PRN medications. Report will be given to day shift RN
[2021-01-26 07:05] LABS: MEAN CELL VOLUME 90 fl (80.0-100.0); MEAN CORPUSCULAR HGB CONC 31 g/dl (33.0-37.0); MEAN PLATELET VOLUME 8.9 fl (7.4-10.4); PLATELET COUNT 315 K/mm3 (130-400); RED BLOOD COUNT 2.96 M/mm3 (4.10-5.30); REDCELL DISTRIBUTION WIDTH-CV 18.6 % (11.5-14.5)
[2021-01-26 07:20] LABS: HEMATOCRIT 26.7 % (37.0-47.0); HEMOGLOBIN 8.2 g/dl (12.5-16.0); MEAN CORPUSCULAR HEMOGLOBIN 28 pg (27.0-31.0)
[2021-01-26 07:22] LABS: CALCIUM 7.9 mg/dL (8.4-10.2); CREATININE, serum 2.14 mg/dL (0.57-1.11); MAGNESIUM 1.5 mg/dL (1.6-2.6); POTASSIUM 3.6 mmol/L (3.5-4.5)
[2021-01-26 08:24] VITALS: BP 165/54; PULSE 63; TEMP 98
[2021-01-26 08:32] LABS: ANISOCYTOSIS 2+; BAND 3 % (0-10); EOSINOPHIL 8 % (0-4); HYPOCHROMIA 3+; LYMPHOCYTE 23 % (20.0-51.0); METAMYELOCYTE 4 % (0-0); NEUTROPHILS 54 % (42.0-75.2); PLATELET ESTIMATE NORMAL (NORMAL); POLYCHROMASIA 1+
[2021-01-26] MEDS ORDERED: CORDARONE200 MG/TAB PO (09:34)
[2021-01-26] MEDS ORDERED: PROTONIX 40MG T40 MG PO (09:36)
[2021-01-26] MEDS ORDERED: REGLAN 5MG T5 MG/TAB PO (09:36)
--- NOTE | 2021-01-26 10:40 | NUR ---
grain oilseed or pasture farm worker attended rounds this morning and at that time the patient was not willing to go to SNF. Discussed the patient's options with her at length and much encouragement was provided to the patient by the hospitalist. Let the patient think about it. I contacted the patient's to notify him of the patient's situation and the need for SNF. appears not receptive of hearing what i have to say and states that he will call his . Visited the patient after letting her think about it. Patient is agreeable to going to [facility] to get better and acknowledges the need. Clinical updates faxed and message left for Meena to notify her that the patient is ready for dc.
[2021-01-26] MEDS ORDERED: MAG-OX 400400 MG/TAB PO (11:21)
--- NOTE | 2021-01-26 11:27 | NUR ---
PT RESTING IN BED. MORNING MEDICATIONS GIVEN. SHIFT ASSESSMENT COMPLETED. PT REPORTING NAUSEA, PRN ZOFRAN GIVEN. PT CONTINUES TO HAVE LOOSE STOOLS, IMMODIUM GIVEN PER APR. PICC LINE FLUSHES AND HAS GOOD BLOOD RETURN. PT R EYE IS RED AND APPEARS SLIGHTLY SWOLLEN, STATES SHE HAS BEEN ITCHING AT IT. WILL CONTINUE TO MONITOR.
--- NOTE | 2021-01-26 11:45 | NUR ---
Clinical updates and dc orders faxed to Meena at [facility]. She is waiting to hear back from her transportation team to see what time slate picker would be.
--- NOTE | 2021-01-26 12:01 | NUR ---
Arrangement for the patient to be picked up by [facility] made for 1430 today. Notified the patient's RN and community planning technician Liz. Patient's present at bedside and is planning on running home to pack his some clothes and get her coat. Patient and patient's agreeable to the 1430 picking machine operator helper time.
[2021-01-26 12:52] VITALS: BP 142/49; PULSE 63; TEMP 98.1
--- NOTE | 2021-01-26 14:37 | NUR ---
REMOVED PT CENTRAL LINE AND SHERWOOD CATHETER. WAITING FOR [facility] STAFF TO ARRIVE.
== END 2021-01-26 15:17 | DRG 871 ==
LOC: COL.ER 15:14 → MEDICAL 01-19 15:30 → SURG 01-20 14:40 → MEDICAL 01-20 14:40
PROVIDERS: Family Medicine; Nurse Practitioner Family; Physician Assistant; Student in an Organized Health Care Education/Training Program; ADMIT Internal Medicine
PROC: 05HM33Z Insertion of Infusion Device into Right Internal Jugular Vein, Percutaneous Approach (ICD-10-PCS; principal; 2021-01-19)
DX: A41.1 Sepsis due to other specified staphylococcus (principal); E11.10 Type 2 diabetes mellitus with ketoacidosis without coma; I50.22 Chronic systolic (congestive) heart failure; K57.32 Diverticulitis of large intestine without perforation or abscess without bleeding; N17.9 Acute kidney failure, unspecified; K92.1 Melena; N18.5 Chronic kidney disease, stage 5; I13.2 Hypertensive heart and chronic kidney disease with heart failure and with stage 5 chronic kidney disease, or end stage renal disease; N39.0 Urinary tract infection, site not specified; I47.1 Supraventricular tachycardia; G93.40 Encephalopathy, unspecified; Z68.43 Body mass index [BMI] 50.0-59.9, adult; E78.5 Hyperlipidemia, unspecified; R65.20 Severe sepsis without septic shock; I25.10 Atherosclerotic heart disease of native coronary artery without angina pectoris; I25.5 Ischemic cardiomyopathy; E11.51 Type 2 diabetes mellitus with diabetic peripheral angiopathy without gangrene; E11.22 Type 2 diabetes mellitus with diabetic chronic kidney disease; E03.9 Hypothyroidism, unspecified; F41.9 Anxiety disorder, unspecified; F32.A Depression, unspecified; I48.91 Unspecified atrial fibrillation; E11.42 Type 2 diabetes mellitus with diabetic polyneuropathy; E66.01 Morbid (severe) obesity due to excess calories; D63.1 Anemia in chronic kidney disease; K52.9 Noninfective gastroenteritis and colitis, unspecified; L89.152 Pressure ulcer of sacral region, stage 2; K44.9 Diaphragmatic hernia without obstruction or gangrene; E87.6 Hypokalemia; K21.9 Gastro-esophageal reflux disease without esophagitis; Z20.822 Contact with and (suspected) exposure to COVID-19; Z95.5 Presence of coronary angioplasty implant and graft; I25.2 Old myocardial infarction; Z79.4 Long term (current) use of insulin; Z79.82 Long term (current) use of aspirin; Z23 Encounter for immunization
CPT/HCPCS: 99223-AI; 99232-AI; 99233-AI; 99239; C9113; J1170; J1815; J2405; J2543; J2550; J2704; J2765; J3370; J3475; J3480; J7030; J7050; J7120; P9016

== ENCOUNTER 2021-04-02 21:29 | Inpatient (IN) | payer MEDICARE, BC, MEDICAID ==
[~2021-04-02] VITALS: Ht 157.5 cm; Wt 102.3 kg
[~2021-04-02 21:29] MED LIST changes: +ALDACTONE 25MG25 M1 PO; +CORDARONE200 MG/TAB PO; +LEVEMIR FLEX100 U/ML SQ; +MAG-OX 400400 MG/TAB PO; +NEURONTIN300 MG/CAP PO; +PROTONIX 40MG T40 MG PO; +REGLAN 5MG T5 MG/TAB PO
[2021-04-02 22:37] LABS: BASO # 0.1 K/mm3 (0.0-0.2); BASO % 0.3 % (0.0-2.0); EOS % 0.2 % (0.0-4.0); GRAN # 13.2 K/mm3 (1.4-6.5); GRAN % 84.4 % (42.2-75.2); HEMATOCRIT 29.4 % (37.0-47.0); HEMOGLOBIN 9.6 g/dl (12.5-16.0); LYMPH # 1.4 K/mm3 (1.2-3.4); LYMPH % 9.1 % (20.0-51.0); MEAN CELL VOLUME 83 fl (80.0-100.0); MEAN CORPUSCULAR HEMOGLOBIN 27 pg (27-31); MEAN CORPUSCULAR HGB CONC 33 g/dl (33.0-37.0); MEAN PLATELET VOLUME 8.9 fl (7.4-10.4); MONO # 0.9 K/mm3 (0.1-0.6); MONO % 5.4 % (1.7-9.3); PLATELET COUNT 368 K/mm3 (130-400); RED BLOOD COUNT 3.54 M/mm3 (4.10-5.30); REDCELL DISTRIBUTION WIDTH-CV 18.2 % (11.5-14.5)
[2021-04-02 22:56] LABS: ALBUMIN 1.9 gm/dL (3.4-4.8); C-REACTIVE PROTEIN 24.95 mg/dL (0.00-0.50); CREATININE, serum 2.88 mg/dL (0.57-1.11); POTASSIUM 3.5 mmol/L (3.5-4.5); TOTAL PROTEIN 6.9 gm/dL (6.2-8.1)
[2021-04-02 23:06] LABS: TROPONIN-I 0.042 ng/mL (0.00-0.033)
[2021-04-02 23:52] LABS: COLLECTION METHOD CATHETER
[2021-04-02 23:59] LABS: MUCOUS Present (NOT PRESENT); PH 8 (5-8); URINE APPEARANCE Turbid (CLEAR/HAZY); URINE BACTERIA Rare /hpf (NONE SEEN); URINE BILIRUBIN Negative (NEGATIVE); URINE BLOOD 1+ (NEGATIVE); URINE COLOR Amber (YELLOW); URINE GLUCOSE Negative (NEGATIVE); URINE KETONE Negative (NEGATIVE); URINE LEUKOCYTE ESTERASE 3+ (NEGATIVE); URINE NITRATE Negative (NEGATIVE); URINE PROTEIN(semi-quant) 1+ (NEGATIVE); URINE RBC >50 /hpf (0-2); URINE UROBILINOGEN Negative (NEGATIVE)
[2021-04-03] MEDS ORDERED: PACERONE200 MG PO (00:04)
[2021-04-03] MEDS ORDERED: CYMBALTA 30MG30 MG PO (00:06)
[2021-04-03] MEDS ORDERED: DEMADEX 20MG20 M1 PO (00:07)
[2021-04-03] MEDS ORDERED: SILACE150 MG/15 PO (00:08)
[2021-04-03] MEDS ORDERED: MULTI VITAMINS1 TAB PO (00:10)
[2021-04-03] MEDS ORDERED: K-DUR 10 MEQ T10 MEQ PO (00:11)
[2021-04-03] MEDS ORDERED: DESYREL 50MG50 MG PO (00:12)
[2021-04-03] MEDS ORDERED: BENADRYL25 M2 PO (00:15)
[2021-04-03] MEDS ORDERED: REGLAN 5MG T5 MG/TAB PO (00:16)
[2021-04-03] MEDS ORDERED: TESSALON PERLE200 MG PO (00:16)
[2021-04-03 01:06] LABS: INR 1.1 (0.8-3.0); PROTHROMBIN TIME 11.8 SECONDS (9.7-12.8)
[2021-04-03 01:09] LABS: PARTIAL THROMBOPLASTIN TIME 28.7 SECONDS (26.0-37.0)
--- NOTE | 2021-04-03 03:56 | NUR ---
PATIENT ARRIVED TO ROOM 303 FROM ER. PATIENT A&O X'4, DENIES PAIN OR NAUSEA AT THIS TIME. PATIENT ORIENTED TO ROOM AND CALL LIGHT. NO REQUESTS OR CONCERNS VERBALIZED AT THIS TIME.
[2021-04-03 04:01] VITALS: BP 131/88; PULSE 61; TEMP 98.9
[2021-04-03 07:10] LABS: MEAN CELL VOLUME 84 fl (80.0-100.0); MEAN CORPUSCULAR HGB CONC 31 g/dl (33.0-37.0); MEAN PLATELET VOLUME 8.4 fl (7.4-10.4); PLATELET COUNT 376 K/mm3 (130-400); RED BLOOD COUNT 3.55 M/mm3 (4.10-5.30); REDCELL DISTRIBUTION WIDTH-CV 18.1 % (11.5-14.5)
[2021-04-03 07:12] LABS: HEMATOCRIT 29.9 % (37.0-47.0); HEMOGLOBIN 9.4 g/dl (12.5-16.0); MEAN CORPUSCULAR HEMOGLOBIN 26 pg (27-31)
[2021-04-03 07:29] LABS: CALCIUM 7.9 mg/dL (8.4-10.2); CREATININE, serum 3.03 mg/dL (0.57-1.11); POTASSIUM 3.6 mmol/L (3.5-4.5)
[2021-04-03 08:08] LABS: BAND 7 % (0-10); LYMPHOCYTE 7 % (20.0-51.0); NEUTROPHILS 84 % (42.0-75.2); PLATELET ESTIMATE NORMAL (NORMAL)
[2021-04-03 08:50] VITALS: BP 1364/36; PULSE 60; TEMP 97.8
--- NOTE | 2021-04-03 09:46 | NUR ---
PT ASSESSED. NO COMPLAINTS OF PAIN OR DYSPNEA. NO SIGNS OR SYMPTOMS OF DISTRESS. CALL LIGHT WITHIN REACH. OT AT BEDSIDE.
[2021-04-03 11:39] VITALS: BP 116/37; PULSE 58; TEMP 97.5
--- NOTE | 2021-04-03 13:27 | NUR ---
Rn Team Leader attempted to contact patient by room phone as she is in isolation for COVID. Patient did not answer. KELECHI contacted patient's , Molina (ph#[phone]) to complete intake. Molina advised patient lives at [facility] and he is not sure what doctor she currently sees. Patient used to see Dr. Watson. Molina denies any use of DME and confirms the discharge plan is for patient to return to [facility] at time of discharge. Patient has Advance Directives in EMR which designate Molina as DPOA-HC. KELECHI contacted Meena at [facility] and faxed clinical updates. Meena advised they can accept patient back once ready for discharge. Discharge Plan: [facility]
[2021-04-03 16:07] VITALS: BP 136/36; PULSE 65; TEMP 97.5
[2021-04-03 20:43] VITALS: BP 124/86; PULSE 60; TEMP 97.2
[2021-04-03 22:22] LABS: CALCIUM 7.6 mg/dL (8.4-10.2); CREATININE, serum 3.56 mg/dL (0.57-1.11); POTASSIUM 3.8 mmol/L (3.5-4.5)
[2021-04-03 23:54] LABS: ARTERIAL BLD GAS O2 SATURATION 95.1 % (92-100); ARTERIAL BLD GAS TCO2 CT 22.3; ARTERIAL BLOOD GAS BASE EXCESS -1.6 (-2-2); ARTERIAL BLOOD GAS HCO3 21.4 meq/L (22-26); ARTERIAL BLOOD GAS PCO2 29.9 mmHg (35-45); ARTERIAL BLOOD GAS pH 7.47 (7.35-7.45)
[2021-04-04] VITALS: BP 120/84; PULSE 64; TEMP 97.4
[2021-04-04 01:24] LABS: CALCIUM 7.2 mg/dL (8.4-10.2); CREATININE, serum 3.61 mg/dL (0.57-1.11); POTASSIUM 3.4 mmol/L (3.5-4.5)
[2021-04-04 05:11] VITALS: BP 103/36; PULSE 51; TEMP 97.3
[2021-04-04 06:33] LABS: MEAN CELL VOLUME 83 fl (80.0-100.0); MEAN CORPUSCULAR HGB CONC 32 g/dl (33.0-37.0); MEAN PLATELET VOLUME 8.6 fl (7.4-10.4); PLATELET COUNT 350 K/mm3 (130-400); RED BLOOD COUNT 3.15 M/mm3 (4.10-5.30); REDCELL DISTRIBUTION WIDTH-CV 18.1 % (11.5-14.5)
[2021-04-04 06:40] LABS: HEMATOCRIT 26.2 % (37.0-47.0); HEMOGLOBIN 8.5 g/dl (12.5-16.0); MEAN CORPUSCULAR HEMOGLOBIN 27 pg (27-31)
[2021-04-04 06:51] LABS: ALBUMIN 1.7 gm/dL (3.4-4.8); BILIRUBIN,TOTAL 0.5 mg/dL (0.2-1.2); CALCIUM 7.2 mg/dL (8.4-10.2); CREATININE, serum 3.26 mg/dL (0.57-1.11); TOTAL PROTEIN 5.7 gm/dL (6.2-8.1)
--- NOTE | 2021-04-04 07:56 | NUR ---
TOD SUMMARY [id number] 2053 PT FOUND UNRESPONSIVE, VS WNL, HOWEVER, BGM 402, NOTIFIED ROSE SCHAEFFER PER PHONE, ORDERS ENTERED FOR LEVEMIR 10 UNITS AND SS CHANGED TO HIGH DOSE, BMP ORDERED. 2111-14 UNITS OF NOVOLOG AND 10 UNITS OF LEVEMIR GIVEN, PT STILL NOT WAKING UP, EVEN WITH PAINFUL STIMULI, HELD PO MEDS DUE AT THIS TIME. 2219-REC'D CALL FROM LAB THAT GLUCOSE IS 451, ROSE SCHAEFFER NOTIFIED, WENT TO ROOM TO [facility] PT, PT NOW AWAKE AND TALKING, ASKING QUESTIONS, EXPLAINED TO PT THAT HER GLUCOSE IS HIGH, PT HAS SOME CONFUSION, ABLE TO TALK, BUT NOT COMPLETING SENTENCES. NEW ORDERS REC'D FOR FLUID BOLUS FOLLOWED BY INCREASED RATE. 1000 ML BOLUS GIVEN OVER 1 HR, 2ND IV SITE STARTED IN LFA, BOLUS INFUSED @2350, HUNG NEXT BAG @250 CC/HR, 0030 BGM DOWN TO 297, 0130 REC'D CALL FROM MAKSIM ROSE, WANTS TO TREAT BGM WITH SS 8UNITS AND TX POTASSIUM, ORDERS ENTERED AND GIVEN. ALSO WANTS SHERWOOD PLACED. 0215 16 F SHERWOOD PLACED WITH 125 CC RED STREAKED CHUNKY URINE OUT. ROSE DID NOT WANT NEW URINE SPECIMEN SENT TO LAB. PT BACK TO SLEEP, WAKES TO PAINFUL STIMULI, 0350 2ND BAG OF NS INFUSED, RATE DECREASED TO 125 CC/HR. 0420 BGM 174, REC'D CALL FROM ROSE, WANTS TO TREAT WITH 4 UNITS NOVOLOG, ORDER ENTERED AND GIVEN. ATTEMPTED TO NOTIFY PT'S SPOUSE PER PHONE @2300 PER HER REQUEST, NO ANSWER AT THIS TIME.
[2021-04-04 08:04] VITALS: BP 124/39; PULSE 55; TEMP 97.3
[2021-04-04 09:05] LABS: BAND 12 % (0-10); LYMPHOCYTE 11 % (20.0-51.0); NEUTROPHILS 72 % (42.0-75.2); OVALOCYTES 1+; PLATELET ESTIMATE NORMAL (NORMAL)
[2021-04-04 12:52] VITALS: BP 99/72; PULSE 50; TEMP 97.6
--- NOTE | 2021-04-04 16:28 | NUR ---
PT LAYING IN BED. PT STATES THAT SHE HAS NO NEEDS AT THIS TIME. CALL LIGHT IS WITHIN REACH.
[2021-04-04 16:49] VITALS: BP 117/36; PULSE 51; TEMP 97.4
--- NOTE | 2021-04-04 18:35 | NUR ---
PT SITTING UP IN BED EATING DINNER. PT STATES THAT SHE IS NOT HAVING ANY PAIN. CALL LIGHT IS WITHIN REACH.
[2021-04-04 20:33] VITALS: BP 116/36; BP 116/56; PULSE 56; TEMP 98
--- NOTE | 2021-04-04 21:30 | NUR ---
Patient is deeply sleeping in bed, difficult to arouse. After several attemps she woke up. VSS, alert and oriented. Telemetry in place, 2L O2 NC. Catheter arrington in place, yellow clear output. Receiving NS at 125ml/hr. Fouded with an incontinent BM. Hygiene provided. Noticed reddenend peritoneal area. Barrier ointment applied. Assessment completed, medications provided. No further needs at this time. Call light withinr reach.
[2021-04-05 00:43] VITALS: BP 115/38; PULSE 53; TEMP 97.7
[2021-04-05 04:41] VITALS: BP 153/36; PULSE 51; TEMP 97.5
[2021-04-05 06:24] LABS: MEAN CELL VOLUME 83 fl (80.0-100.0); MEAN CORPUSCULAR HGB CONC 32 g/dl (33.0-37.0); MEAN PLATELET VOLUME 8.8 fl (7.4-10.4); PLATELET COUNT 349 K/mm3 (130-400); RED BLOOD COUNT 3.14 M/mm3 (4.10-5.30); REDCELL DISTRIBUTION WIDTH-CV 17.7 % (11.5-14.5)
[2021-04-05 06:34] LABS: HEMATOCRIT 25.9 % (37.0-47.0); HEMOGLOBIN 8.4 g/dl (12.5-16.0); MEAN CORPUSCULAR HEMOGLOBIN 27 pg (27-31)
--- NOTE | 2021-04-05 07:00 | NUR ---
Report received DENIA Pineda.
[2021-04-05 07:01] LABS: ALBUMIN 1.7 gm/dL (3.4-4.8); BILIRUBIN,TOTAL 0.5 mg/dL (0.2-1.2); C-REACTIVE PROTEIN 12.15 mg/dL (0.00-0.50); CALCIUM 7.6 mg/dL (8.4-10.2); CREATININE, serum 3.16 mg/dL (0.57-1.11); TOTAL PROTEIN 5.9 gm/dL (6.2-8.1)
--- NOTE | 2021-04-05 07:02 | NUR ---
Patient VSS have been stable. HR continues 50-60s. Blood sugar 111-209. Pt is difficult to arouse. Edema developed on feet and left hand. Yari notified and order to put it on hold. Report givent to day RN.
[2021-04-05 07:46] LABS: BAND 9 % (0-10); LYMPHOCYTE 7 % (20.0-51.0); NEUTROPHILS 84 % (42.0-75.2)
[2021-04-05 07:48] LABS: ANISOCYTOSIS 1+; HYPOCHROMIA 1+; PLATELET ESTIMATE NORMAL (NORMAL)
[2021-04-05 07:50] LABS: TARGET CELLS 1+
[2021-04-05 08:13] VITALS: BP 123/32; PULSE 50; TEMP 97.4
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
--- NOTE | 2021-04-05 11:45 | NUR ---
Social Work student faxed updates to [facility].
[2021-04-05 12:02] VITALS: BP 14360/6; PULSE 52; TEMP 97.6
--- NOTE | 2021-04-05 14:24 | NUR ---
Paper Sheeter attempted to leave patient's , Molina and was unable to leave a message.
[2021-04-05 16:32] VITALS: BP 121/46; PULSE 57; TEMP 97.7
--- NOTE | 2021-04-05 19:08 | NUR ---
Pt has remained somnolent often throughout the shift, only really awwakens with lots of stimulation otherwise sleeps thorughout the day. incontinetn of stool three times over shift, aware 2 times and unaware once. Raw groin and sacral area from stool, cream applied. Report given to [facility] nurse who will resume care.
[2021-04-05 20:22] VITALS: BP 136/45; PULSE 56; TEMP 98
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
[2021-04-06] VITALS (7 sets, daily range): BP systolic 101–145; BP diastolic 30–75; PULSE 50–66; TEMP 97.3–98.6
--- NOTE | 2021-04-06 05:39 | NUR ---
RESTED THOUGH THE NIGHT WITHOUT INCIDENT. REMAINS GROGGY AND LETHARGIC MOST OF THE NIGHT.
[2021-04-06 06:22] LABS: MEAN CELL VOLUME 82 fl (80.0-100.0); MEAN CORPUSCULAR HGB CONC 33 g/dl (33.0-37.0); MEAN PLATELET VOLUME 8.8 fl (7.4-10.4); PLATELET COUNT 315 K/mm3 (130-400); RED BLOOD COUNT 2.98 M/mm3 (4.10-5.30); REDCELL DISTRIBUTION WIDTH-CV 17.8 % (11.5-14.5)
[2021-04-06 06:35] LABS: HEMATOCRIT 24.3 % (37.0-47.0); MEAN CORPUSCULAR HEMOGLOBIN 27 pg (27-31)
[2021-04-06 06:40] LABS: ALBUMIN 1.6 gm/dL (3.4-4.8); BILIRUBIN,TOTAL 0.5 mg/dL (0.2-1.2); CALCIUM 7.6 mg/dL (8.4-10.2); CREATININE, serum 2.98 mg/dL (0.57-1.11); POTASSIUM 3.3 mmol/L (3.5-4.5); TOTAL PROTEIN 5.5 gm/dL (6.2-8.1)
[2021-04-06 07:57] LABS: ANISOCYTOSIS 1+; BAND 4 % (0-10); LYMPHOCYTE 16 % (20.0-51.0); METAMYELOCYTE 1 % (0-0); NEUTROPHILS 78 % (42.0-75.2); PLATELET ESTIMATE NORMAL (NORMAL)
--- NOTE | 2021-04-06 09:49 | NUR ---
PT ASSESSED. NO COMPLAINTS OF PAIN OR DYSPNEA. NO SIGNS OR SYMPTOMS OF DISTRESS. CALL LIGHT WITHIN REACH. PICC PLACEMENT IN PROGRESS
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
[2021-04-07 03:38] VITALS: BP 107/48; PULSE 62; TEMP 98.1
--- NOTE | 2021-04-07 05:10 | NUR ---
PATIENT CALM AND COOPERATIVE THROUGHOUT THE SHIFT. PATIENT DENIES PAIN. CALL LIGHT WITHIN REACH.
--- NOTE | 2021-04-07 05:12 | NUR ---
UPON 1999 ASSESSMENT BILATERAL UPPER EXTREMITY EDEMA NOTED. NOTIFIED TORO CARRASQUILLO. NO NEW ORDERS AT THIS TIME.
[2021-04-07 06:38] LABS: MEAN CELL VOLUME 84 fl (80.0-100.0); MEAN CORPUSCULAR HGB CONC 32 g/dl (33.0-37.0); MEAN PLATELET VOLUME 8.6 fl (7.4-10.4); PLATELET COUNT 286 K/mm3 (130-400); REDCELL DISTRIBUTION WIDTH-CV 17.8 % (11.5-14.5)
[2021-04-07 06:58] LABS: HEMATOCRIT 25.3 % (37.0-47.0); HEMOGLOBIN 8.1 g/dl (12.5-16.0); MEAN CORPUSCULAR HEMOGLOBIN 27 pg (27-31)
[2021-04-07 07:41] LABS: ALBUMIN 1.6 gm/dL (3.4-4.8); BILIRUBIN,TOTAL 0.5 mg/dL (0.2-1.2); CALCIUM 7.4 mg/dL (8.4-10.2); CREATININE, serum 2.8 mg/dL (0.57-1.11); POTASSIUM 3.6 mmol/L (3.5-4.5); TOTAL PROTEIN 5.4 gm/dL (6.2-8.1)
[2021-04-07 07:52] VITALS: BP 152/43; PULSE 55; TEMP 97.9
[2021-04-07 07:58] LABS: ANISOCYTOSIS 1+; BAND 3 % (0-10); LYMPHOCYTE 10 % (20.0-51.0); NEUTROPHILS 82 % (42.0-75.2); PLATELET ESTIMATE NORMAL (NORMAL)
[2021-04-07 08:02] LABS: MICROCYTOSIS 1+
[2021-04-07] MEDS ORDERED: DECADRON6 MG PO (09:16)
[2021-04-07] MEDS ORDERED: AMOXICILLIN/CLA1 TA1 PO (09:17)
[2021-04-07 11:08] VITALS: BP 134/43; PULSE 58; TEMP 97.6
--- NOTE | 2021-04-07 11:23 | NUR ---
PT ASSESSED. NO COMPLAINTS OF PAIN OR DYSPNEA. NO SIGNS OR SYMPTOMS OF DISTRESS. CALL LIGHT WITHIN REACH
--- NOTE | 2021-04-07 14:14 | NUR ---
Radio Recorder was notified that patient is ready for discharge today. KELECHI collaborated with Meena at [facility] and set transport time for 1400. KELECHI faxed discharge orders. KELECHI attempted to contact patient's , Molina five times. Each time it went to voicemail. KELECHI was unable to leave a message as the mailbox was full. Discharge Plan: [facility]
--- NOTE | 2021-04-07 14:35 | NUR ---
PT DISCHARGED TO FACILITY. CAREGIVER GIVEN DISCHARGE PACKET. PICC REMOVED BY AIVS. SHERWOOD REMOVED. REPORT CALLED TO ERICA
[2021-04-13 13:09] LABS: ARTERIAL BLOOD GAS PCO2 36.9 mmHg (35-45); ARTERIAL BLOOD GAS PO2 65.3 mmHg (80-100); ARTERIAL BLOOD GAS pH 7.54 (7.35-7.45)
== END 2021-04-07 14:43 | DRG 871 ==
LOC: COL.ER 21:29 → MEDICAL 04-03 02:51
PROVIDERS: Nurse Practitioner; Nurse Practitioner Family; ADMIT Internal Medicine
PROC: 02HV33Z Insertion of Infusion Device into Superior Vena Cava, Percutaneous Approach (ICD-10-PCS; principal; 2021-04-06)
DX: A41.9 Sepsis, unspecified organism (principal); U07.1 COVID-19; J12.82 Pneumonia due to coronavirus disease 2019; J96.01 Acute respiratory failure with hypoxia; G93.41 Metabolic encephalopathy; I13.0 Hypertensive heart and chronic kidney disease with heart failure and stage 1 through stage 4 chronic kidney disease, or unspecified chronic kidney disease; N18.4 Chronic kidney disease, stage 4 (severe); I50.22 Chronic systolic (congestive) heart failure; N39.0 Urinary tract infection, site not specified; E87.1 Hypo-osmolality and hyponatremia; F03.90 Unspecified dementia, unspecified severity, without behavioral disturbance, psychotic disturbance, mood disturbance, and anxiety; I25.10 Atherosclerotic heart disease of native coronary artery without angina pectoris; D64.9 Anemia, unspecified; I48.0 Paroxysmal atrial fibrillation; E03.9 Hypothyroidism, unspecified; E11.22 Type 2 diabetes mellitus with diabetic chronic kidney disease; E78.5 Hyperlipidemia, unspecified; I25.5 Ischemic cardiomyopathy; E11.51 Type 2 diabetes mellitus with diabetic peripheral angiopathy without gangrene; E11.42 Type 2 diabetes mellitus with diabetic polyneuropathy; F41.9 Anxiety disorder, unspecified; F32.A Depression, unspecified; E66.01 Morbid (severe) obesity due to excess calories; B96.4 Proteus (mirabilis) (morganii) as the cause of diseases classified elsewhere; E87.8 Other disorders of electrolyte and fluid balance, not elsewhere classified; E87.6 Hypokalemia; Z95.5 Presence of coronary angioplasty implant and graft; I25.2 Old myocardial infarction; Z79.4 Long term (current) use of insulin; Z68.37 Body mass index [BMI] 37.0-37.9, adult
CPT/HCPCS: 99233-AI; 99239; A9540; C1751; C1892; J1100; J1644; J1650; J1815; J2543; J3480; J7030

== ENCOUNTER 2021-04-10 16:30 | Inpatient (IN) | payer MEDICARE, BC, MEDICAID ==
[~2021-04-10] VITALS: Wt 94.8 kg
[~2021-04-10 16:30] MED LIST changes: +AMOXICILLIN/CLA1 TA1 PO; +BENADRYL25 M2 PO; +DECADRON6 MG PO; +MULTI VITAMINS1 TAB PO; +PACERONE200 MG PO; +SILACE150 MG/15 PO; +TESSALON PERLE200 MG PO
[2021-04-10 17:29] LABS: MEAN CELL VOLUME 83 fl (80.0-100.0); MEAN CORPUSCULAR HGB CONC 32 g/dl (33.0-37.0); MEAN PLATELET VOLUME 8.8 fl (7.4-10.4); PLATELET COUNT 260 K/mm3 (130-400); RED BLOOD COUNT 3.46 M/mm3 (4.10-5.30); REDCELL DISTRIBUTION WIDTH-CV 17.6 % (11.5-14.5)
[2021-04-10 17:39] LABS: HEMATOCRIT 28.6 % (37.0-47.0); HEMOGLOBIN 9.2 g/dl (12.5-16.0); MEAN CORPUSCULAR HEMOGLOBIN 27 pg (27-31)
[2021-04-10 17:51] LABS: ALBUMIN 1.6 gm/dL (3.4-4.8); BILIRUBIN,TOTAL 0.5 mg/dL (0.2-1.2); C-REACTIVE PROTEIN 20.8 mg/dL (0.00-0.50); CALCIUM 7.9 mg/dL (8.4-10.2); CREATININE, serum 2.85 mg/dL (0.57-1.11); POTASSIUM 3.4 mmol/L (3.5-4.5); TOTAL PROTEIN 5.8 gm/dL (6.2-8.1)
[2021-04-10 18:00] LABS: BAND 2 % (0-10); LYMPHOCYTE 3 % (20.0-51.0); METAMYELOCYTE 1 % (0-0); NEUTROPHILS 93 % (42.0-75.2); PLATELET ESTIMATE NORMAL (NORMAL)
[2021-04-10 18:01] LABS: ANISOCYTOSIS 1+; HYPOCHROMIA 1+; TROPONIN-I 0.044 ng/mL (0.00-0.033)
[2021-04-10 18:06] LABS: SCHISTOCYTES 1+
[2021-04-10 21:01] VITALS: BP 142/46; PULSE 62; TEMP 97.4
[2021-04-10 22:05] LABS: COLLECTION METHOD CATHETER
[2021-04-10 22:13] LABS: BUDDING YEAST Present (NOT PRESENT); MUCOUS Present (NOT PRESENT); PH 6 (5-8); URINE APPEARANCE Cloudy (CLEAR/HAZY); URINE BACTERIA Rare /hpf (NONE SEEN); URINE BILIRUBIN Negative (NEGATIVE); URINE BLOOD 2+ (NEGATIVE); URINE CALCIUM OXALATE CRYSTAL Present (NOT PRESENT); URINE COLOR Yellow (YELLOW); URINE GLUCOSE Negative (NEGATIVE); URINE KETONE Negative (NEGATIVE); URINE LEUKOCYTE ESTERASE 3+ (NEGATIVE); URINE NITRATE Negative (NEGATIVE); URINE PROTEIN(semi-quant) Negative (NEGATIVE); URINE RBC >50 /hpf (0-2); URINE UROBILINOGEN Negative (NEGATIVE)
[2021-04-10] MEDS ORDERED: GLUCAGON EMERGEN1 M1 SQ (22:48)
[2021-04-10] MEDS ORDERED: ZAROXOLYN5 MG PO (22:49)
[2021-04-10] MEDS ORDERED: NYSTATIN POWDER15 GM TOP (22:51)
[2021-04-11 00:35] VITALS: BP 134/42; PULSE 62; TEMP 97.5
--- NOTE | 2021-04-11 02:47 | NUR ---
PATIENT TO ROOM 344 AT 2100. ALERT AND PARTIALLY ORIENTED. C/O HEADACHE BUT DENIES NEEDS FOR MEDICATION AT THIS TIME. HAD SOFT/LOOSE BROWN BM AND WHOLE BED CHANGE WAS DONE. PATIENTS COCCYX AND PERIAREA EXTREMELY EXCORIATED, BARRIER CREAM APPLIED. SHERWOOD INSERTED AT THIS TIME WITH ASSISTANCE OF DERRICK LOZA. CAME TO FLOOR ON 3 L O2 VIA NC, CURRENTLY ON 2 L AND O2SATS 98%. L HAND IV PATENT AND FLUSHES. TELE IN PLACE. BLOOD SUGARS STABLE AT THIS TIME WITH LAST CHECK 165. TROPONIN HAS BEEN TRENDING DOWN. CURRENTLY RESTING IN BED, CALL LIGHT WITHIN REACH.
[2021-04-11 04:18] VITALS: BP 135/37; PULSE 66; TEMP 97.8
[2021-04-11 07:10] VITALS: BP 145/40; PULSE 63; TEMP 96
--- NOTE | 2021-04-11 08:55 | NUR ---
SHIFT REPORT RECEIVED FROM NIGHT NURSE. PATIENT IS RESTING COMFORTABLY IN BED. REMAINS ON 02 AT 2L/NC. PATIENT DENIES ANY NEEDS AT THIS TIME
--- NOTE | 2021-04-11 09:00 | NUR ---
Patient refused to take oral medication stating she does not like it all. This nurse let patient know she would speak to the hosptialists to see what alternative we have for changing route of medication.
[2021-04-11 11:15] VITALS: BP 133/88; PULSE 68; TEMP 98
--- NOTE | 2021-04-11 11:24 | NUR ---
Hospitalists change orders for colace from liquid to PO and potassium from oral to IV.
--- NOTE | 2021-04-11 11:30 | NUR ---
Patient and agreed to pallive care and patient will likely discharge tomorrow and go to hospice.
--- NOTE | 2021-04-11 11:37 | NUR ---
0710 assessment complete. Patient alert to person. Not oriented to time or place. On 2L INC O2. Patient is drowsy. Peripheral line at left wrist and dressing is clean,dry,intact. Patient is on telemetry. Pastor catheter is secured and draining pale yellow with sediment.
[2021-04-11 12:17] LABS: MEAN CELL VOLUME 80 fl (80.0-100.0); MEAN CORPUSCULAR HGB CONC 33 g/dl (33.0-37.0); MEAN PLATELET VOLUME 8.8 fl (7.4-10.4); PLATELET COUNT 294 K/mm3 (130-400); RED BLOOD COUNT 3.36 M/mm3 (4.10-5.30); REDCELL DISTRIBUTION WIDTH-CV 17.6 % (11.5-14.5)
[2021-04-11 12:18] LABS: CALCIUM 7.9 mg/dL (8.4-10.2); CREATININE, serum 2.88 mg/dL (0.57-1.11); MAGNESIUM 1.8 mg/dL (1.6-2.6); POTASSIUM 3.6 mmol/L (3.5-4.5)
[2021-04-11 12:21] LABS: HEMATOCRIT 26.9 % (37.0-47.0); HEMOGLOBIN 8.9 g/dl (12.5-16.0); MEAN CORPUSCULAR HEMOGLOBIN 26 pg (27-31)
--- NOTE | 2021-04-11 12:43 | NUR ---
First visit from the leather staker. No needs right now.
--- NOTE | 2021-04-11 12:48 | NUR ---
farrowing worker and palliative care RN Trinity meet with patient. Patient resides at [facility]. SHe is unable to tell me the name of her PCP and states that the aids help her with all of her ADL's. Patient does have a DPOA-HC on file listing her Molina ([phone]). Contacted and [facility] and spoke with the patient's RN. Rn states that the patient has been noncompliant with medications/diet at the detention and has not been eating. RN reports that they have not have any goals of care discussions with either the patient or her during her stay there. If the patient was to come back on hospice, they are contacted with [facility]. Palliative care RN and myself speak with the patient on her goals of care. Patient verbalizes that she hasn't been taking her medications because she "doesn't like being bother at night". Patient verbalizes concerns that she dosn't like the schedule of her medications and that she would like to take them with meals. Educated the patient that some medications may have to be taken at certain times. When asked about her appetite, she states "i'm not hungry for anyones food". Trinity RN speaks to the patient about hospice options and what that would look like in terms of care. Patient verbalizes that she "is tired of being poked and proded". When asked what her thoughts were about hospice she verbalizes " i would like that". Patient goes on to verbalize how she misses spending time with her watching tv and her cats. States she doesn't get out of bed at the detention and that she doesn't want to leave her room to be around other people. Palliative care RN Trinity and this SW contact patient's Molina to inform him of the above. Molina is agreeable to the patient going back to [facility] on hospice stating " whatever is best for Naa". He has been getting over Covid himself and is hoping to come visit the patient later today after he gets tested again. Phone call made to [facility] and spoke with Meena. Informed Meena of the above and that the patient will likely be discharged tomorrow back to [facility] on hospice services. Clinical referral faxed to [facility]. Discharge plan: [facility] w/ [facility] hospice.
[2021-04-11 12:53] LABS: ANISOCYTOSIS 1+; LYMPHOCYTE 2 % (20.0-51.0); NEUTROPHILS 98 % (42.0-75.2); PLATELET ESTIMATE NORMAL (NORMAL)
--- NOTE | 2021-04-11 13:07 | NUR ---
Patient c/o headache (frontal/occipital). Rates pain at 10/10. Patient is awake and oriented x 3. Hospitalist contacted as patient does not have orders for pain medication.
--- NOTE | 2021-04-11 13:17 | NUR ---
Hospitalist was at bedside to eval patient. Head CT w/out contrast and PRN Tylenol ordered
[2021-04-11 16:26] VITALS: BP 141/51; PULSE 73; TEMP 97.9
--- NOTE | 2021-04-11 16:56 | NUR ---
Patient may d/c to Hospice tomorrow. Called Dariela/ - Dr. Correa would like to continue all medications for now.
--- NOTE | 2021-04-11 20:18 | NUR ---
Report received from DENIA Spaulding. Patient is eating her evening meal during report. Full body assessment completed and vital signs WNL. Patient is A&Ox3 and is here due to fluid overload and AMS post-COVID. Patient is in a pleasant mood, denies any pain or complaints at this time. PICC line is upper right arm, no signs of infiltration or irritation. Possible discharge to hospice tomorrow per report. Call light within reach.
[2021-04-11 21:00] VITALS: BP 150/54; PULSE 64; TEMP 97.8
[2021-04-12 00:17] VITALS: BP 146/44; PULSE 58; TEMP 98
[2021-04-12 05:00] VITALS: BP 151/51; PULSE 54; TEMP 97.6
[2021-04-12 06:22] LABS: MEAN CELL VOLUME 79 fl (80.0-100.0); MEAN CORPUSCULAR HGB CONC 33 g/dl (33.0-37.0); MEAN PLATELET VOLUME 8.8 fl (7.4-10.4); PLATELET COUNT 244 K/mm3 (130-400); RED BLOOD COUNT 3.22 M/mm3 (4.10-5.30); REDCELL DISTRIBUTION WIDTH-CV 17.4 % (11.5-14.5)
[2021-04-12 06:38] LABS: CALCIUM 7.8 mg/dL (8.4-10.2); CREATININE, serum 3.3 mg/dL (0.57-1.11); HEMATOCRIT 25.5 % (37.0-47.0); HEMOGLOBIN 8.4 g/dl (12.5-16.0); MEAN CORPUSCULAR HEMOGLOBIN 26 pg (27-31)
[2021-04-12 06:40] VITALS: BP 137/52; PULSE 54; TEMP 98
[2021-04-12 07:43] LABS: BAND 5 % (0-10); LYMPHOCYTE 5 % (20.0-51.0); NEUTROPHILS 87 % (42.0-75.2)
[2021-04-12 07:44] LABS: OVALOCYTES 1+; PLATELET ESTIMATE NORMAL (NORMAL)
--- NOTE | 2021-04-12 08:04 | NUR ---
Pt assessment complete. Pt has a student nurse caring for her this AM. Pt is alert and oriented. Pt reports pain to R rib cage as well as her bottom, repositioning provided. Dawit CARVALHO. Pt set up for breakfast. Edema to RUE along with redness and bruising, good blood return from PICC line. No needs at this time. Call light within reach.
--- NOTE | 2021-04-12 09:52 | NUR ---
Initial visit; Patient thanked Dispatcher Ship Pilot for looking in on her, offering prayer and keeping her in Dispatcher Ship Pilot's prayers.
--- NOTE | 2021-04-12 10:52 | NUR ---
0700 assessment completed. Patient is alert and oriented to person, time and place. Patient is supine with right arm elevated. Pitting edema +1 is noted on right arm. PICC line is placed at right upper arm. Dressing is clean, dry, inact. Patient complains of burning at coccyx. A barrier cream was applied. Pastor catheter is intact and draining clear pale yellow. Patient is on telemetry.
[2021-04-12 11:00] VITALS: BP 151/50; PULSE 66; TEMP 97
--- NOTE | 2021-04-12 12:46 | NUR ---
Basket Hand Weaver and KELECHI student attended clinical rounds with the team. Trinity, Palliative RN is at bedside. Trinity and Hospitalist discuss goals of care with patient who advised she is no longer wanting to pursue hospice. Plan is still to return to [facility] once medically ready for discharge. KELECHI contacted Jese at [facility] to provide update. KELECHI also contacted Meena at [facility] and left a message. KELECHI student faxed clinical updates. Discharge Plan: [facility]
[2021-04-12 16:20] VITALS: BP 132/39; PULSE 63; TEMP 98.1
[2021-04-12 19:39] VITALS: BP 107/34; PULSE 64; TEMP 97.6
--- NOTE | 2021-04-12 21:10 | NUR ---
Pt. laying in bed. Pt. is A&OX3, assessment complete. PICC to rt. upper arm patent. Pt. denies pain or other needs, call light within reach.
[2021-04-13] VITALS (7 sets, daily range): BP systolic 109–167; BP diastolic 35–81; PULSE 60–73; TEMP 97.3–98.2
[2021-04-13 06:56] LABS: MEAN CELL VOLUME 79 fl (80.0-100.0); MEAN CORPUSCULAR HGB CONC 33 g/dl (33.0-37.0); MEAN PLATELET VOLUME 8.9 fl (7.4-10.4); PLATELET COUNT 239 K/mm3 (130-400); RED BLOOD COUNT 2.94 M/mm3 (4.10-5.30); REDCELL DISTRIBUTION WIDTH-CV 17.3 % (11.5-14.5)
[2021-04-13 07:03] LABS: HEMATOCRIT 23.1 % (37.0-47.0); HEMOGLOBIN 7.6 g/dl (12.5-16.0); MEAN CORPUSCULAR HEMOGLOBIN 26 pg (27-31)
[2021-04-13 07:10] LABS: CALCIUM 7.5 mg/dL (8.4-10.2); CREATININE, serum 3.28 mg/dL (0.57-1.11); POTASSIUM 3.6 mmol/L (3.5-4.5)
[2021-04-13 08:35] LABS: BAND 6 % (0-10); LYMPHOCYTE 4 % (20.0-51.0); NEUTROPHILS 87 % (42.0-75.2); PLATELET ESTIMATE NORMAL (NORMAL)
[2021-04-13 08:37] LABS: ANISOCYTOSIS 3+; MICROCYTOSIS 1+
--- NOTE | 2021-04-13 09:12 | NUR ---
Pt assessment complete. Pt is sitting up in bed eating breakfast at this time. She is A/O x4. Her breathing is even and unlabored on RA. Pt denies any SOB. When asked about pain she states "the usual" and that her hands are sore , PRN Tylenol administered. Pt denies any N/V. Pills taken one at a time. Dawit CARVALHO. Pt not moving independently in bed, foam mattress in place. Call hayley tripathi.
--- NOTE | 2021-04-13 13:01 | NUR ---
Social Work student faxed updates to [facility].
--- NOTE | 2021-04-13 19:21 | NUR ---
Pt had uneventful day, did not get out of bed. Reports her "usual" pains. Dawit CARVALHO. Eating dinner at this time. Call light within reach.
--- NOTE | 2021-04-13 21:30 | NUR ---
Pt. laying in bed. Pt. is alert and oriented at this time, but has intermittant moments of forgetfulness. PICC to rt. upper arm patent. Pt. reports pain to neck at this time. Giving Tylenol. Pericare provided by BOBY Guzman. Dessenex powder and barrior cream applied. Pt. denies further needs, call light within reach.
[2021-04-14 03:39] VITALS: BP 124/36; PULSE 64; TEMP 97.7
[2021-04-14 06:56] LABS: MEAN CELL VOLUME 80 fl (80.0-100.0); MEAN CORPUSCULAR HGB CONC 32 g/dl (33.0-37.0); MEAN PLATELET VOLUME 9.1 fl (7.4-10.4); PLATELET COUNT 255 K/mm3 (130-400); RED BLOOD COUNT 3.06 M/mm3 (4.10-5.30); REDCELL DISTRIBUTION WIDTH-CV 17.6 % (11.5-14.5)
[2021-04-14 07:16] LABS: CALCIUM 7.6 mg/dL (8.4-10.2); CREATININE, serum 3.27 mg/dL (0.57-1.11); POTASSIUM 3.4 mmol/L (3.5-4.5)
[2021-04-14 07:28] LABS: HEMATOCRIT 24.5 % (37.0-47.0); HEMOGLOBIN 7.9 g/dl (12.5-16.0); MEAN CORPUSCULAR HEMOGLOBIN 26 pg (27-31)
[2021-04-14 07:30] VITALS: BP 115/27; BP 115/32; PULSE 60; TEMP 98.1
[2021-04-14 08:26] LABS: BAND 3 % (0-10); LYMPHOCYTE 13 % (20.0-51.0); NEUTROPHILS 82 % (42.0-75.2); PLATELET ESTIMATE NORMAL (NORMAL)
[2021-04-14 08:27] LABS: ANISOCYTOSIS 1+; OVALOCYTES 1+
--- NOTE | 2021-04-14 09:32 | NUR ---
Patient repositioned in bed. Bed bath given. PICC site intact. Redness, excoriation noted to buttock and inner thighs. Desenex powder applied. Patient denies pain this morning. She denies further needs at this time
[2021-04-14] MEDS ORDERED: DIFLUCAN 100MG100 MG PO (10:35)
--- NOTE | 2021-04-14 11:27 | NUR ---
Spoke to Mary ENGEL about positive covid swab, patiently recently has had covid so not suprised about the positive swab.
[2021-04-14 11:46] VITALS: BP 97/34; PULSE 65; TEMP 97.9
--- NOTE | 2021-04-14 12:31 | NUR ---
manager workers compensation met with patient to discuss discharge plan. Patient's Kaitlin ([phone]) present at bedside. Patient and both live at home in [place]. Patient is independent with his ADL's and does not utilize any DME to assist with mobility. Patient has no oxygen needs at home. PCP is Dr. Rodriguez and he utilizes [facility] for medications. Patient doesn't know if he has a DPOA-HC established. Education provided and patient verbalizes his understanding. Does not wish to create one at this time. Patient is planning on returning home post discharge with no concerns. Discharge plan: Home with spouse
--- NOTE | 2021-04-14 13:08 | NUR ---
Pastor catheter dc'd without difficulty or trauma. 8ml water extracted from balloon.
--- NOTE | 2021-04-14 13:34 | NUR ---
Patient resting in bed. Discharge orders obtained. Patient arrington removed per orders & patient request. Pericares given. Patient Picc line also removed per orders and protocol. Patient tolerated fairly well. Patient a little anxious about Dc back to [facility].
--- NOTE | 2021-04-14 13:47 | NUR ---
Patient to discharge back to [facility] today. Discharge orders and clinical updates faxed to [facility]. Transportation arranged for 1500 this afternoon. LUKE.IM form present to patient. This SW verbally read form to the patient. Patient's signed copy placed in chart and original provided back to patient. Patient verbalizes that she is not happy with [facility] and feels like they don't give her good care. Asked is she has talked with her about moving facilities. She said she has been trying to call him for "days" and can't get ahold of him. Phone call placed to the patient's Molina. Updated him on POC for today. Let Molina know that the patient has expressed that she is not happy at [facility]. Molina states that he know she isn't happy there, but he doesn't know of other facilities. Informed him that there is [facility], [facility] and [facility]. Molina reports that the patient has been to [facility] and wasn't happy there either. Encouraged him to talk with [facility] about the patient's concerns.
[2021-04-14 13:48] VITALS: BP 134/75; PULSE 92
--- NOTE | 2021-04-14 16:01 | NUR ---
Patient provided with pericares. Dressed for discharge. Destinee lift used to get patient to wheelchair. Sock on patient feet. Patient belongings with patient & [facility] transportation. report called to Dary syed
== END 2021-04-14 16:08 | DRG 637 ==
LOC: COL.ER 16:30 → SURG 18:29
PROVIDERS: Emergency Medicine; Internal Medicine; Physician Assistant; Student in an Organized Health Care Education/Training Program; ADMIT Internal Medicine
PROC: 02HV33Z Insertion of Infusion Device into Superior Vena Cava, Percutaneous Approach (ICD-10-PCS; principal; 2021-04-11)
DX: E11.649 Type 2 diabetes mellitus with hypoglycemia without coma (principal); U07.1 COVID-19; G93.41 Metabolic encephalopathy; I50.22 Chronic systolic (congestive) heart failure; I13.0 Hypertensive heart and chronic kidney disease with heart failure and stage 1 through stage 4 chronic kidney disease, or unspecified chronic kidney disease; E87.1 Hypo-osmolality and hyponatremia; N39.0 Urinary tract infection, site not specified; Z68.43 Body mass index [BMI] 50.0-59.9, adult; I47.1 Supraventricular tachycardia; Z66 Do not resuscitate; E11.22 Type 2 diabetes mellitus with diabetic chronic kidney disease; E11.51 Type 2 diabetes mellitus with diabetic peripheral angiopathy without gangrene; E03.9 Hypothyroidism, unspecified; I48.91 Unspecified atrial fibrillation; I25.10 Atherosclerotic heart disease of native coronary artery without angina pectoris; I25.5 Ischemic cardiomyopathy; N17.9 Acute kidney failure, unspecified; E11.42 Type 2 diabetes mellitus with diabetic polyneuropathy; F41.9 Anxiety disorder, unspecified; F32.A Depression, unspecified; N18.4 Chronic kidney disease, stage 4 (severe); E66.01 Morbid (severe) obesity due to excess calories; N18.9 Chronic kidney disease, unspecified; D63.1 Anemia in chronic kidney disease; J01.30 Acute sphenoidal sinusitis, unspecified; E87.6 Hypokalemia; D72.829 Elevated white blood cell count, unspecified; T38.0X5A Adverse effect of glucocorticoids and synthetic analogues, initial encounter; I25.2 Old myocardial infarction; E78.5 Hyperlipidemia, unspecified; Z79.4 Long term (current) use of insulin; Z79.890 Hormone replacement therapy; Z95.5 Presence of coronary angioplasty implant and graft; Z87.891 Personal history of nicotine dependence; Z88.2 Allergy status to sulfonamides; Z88.1 Allergy status to other antibiotic agents
CPT/HCPCS: 99223-AI; 99231-AI; 99232-AI; 99233-AI; 99239; C1751; J1644; J1815; J1940; J2405; J3480; J7042; J8540